=== PATIENT | female | born 1935 | race Caucasian/White ===

== ENCOUNTER 2018-05-09 04:33 | Emergency (ER) | payer MEDICARE, OTHER ==
[~2018-05-09] VITALS: Ht 172.7 cm; Wt 104.3 kg
[~2018-05-09 04:33] MED LIST: ACET325T9 PO; ACID1TAB13 PO; ASPI-630 PO; AZTR1VIA IJ; BISACODYL PR; CALC-74 PO; CHOL10002 PO; CYAN250T PO; DOCU100C28 PO; DULO60CA6 PO; FENT1PAT21 TP; FENT1PAT91 TD; HYDR28CR TP; LEVO50TA5 PO; LOPE2CAP PO; MAGN400O7 PO; MAGN400T3 PO; MERO1PIG IV; METO-239 PO; MULT-223 PO; MUPI22OI2 TP; NYST15PO9 TP; ONDA4TAB11 PO; OXYC10TA45 PO; POLY2500 MC; PRAV20TA2 PO; UBID100C PO; WARF-31 PO; Warfarin Sodium MC
--- NOTE | 2018-05-09 05:18 | PHYS DOC ---
Past History Past Medical History: A-Fib, Anemia, Anxiety, Arthritis, CAD, CHF, Constipation , COPD, CVA, Depression, GERD, High Cholesterol, Hypertension, Hypothyroid, Schizophrenia, Sinusitis, UTI, Other Past Surgical History: Appendectomy, Cholecystectomy, Hysterectomy, Other Smoking: Non-smoker Alcohol Use: None Drug Use: None Adult General Chief Complaint Chief Complaint: BRADYCARDIA HPI HPI 83-year-old female presents via EMS from a care facility for bradycardia and that her oxygen saturation saturations were in the 70s. When EMS arrived, they did not find either of these to be the case. On arrival to the ED, the patient had O2 sat of 95 with heart rate in the 70s. When asked patient if she has any complaints she tells me that she has had intermittent headache that she believes is due to her ears. She states she is getting eardrops for cerumen buildup. She states that she has a chronic Smith catheter and has difficulty with bowel movements. She is on a liquid stool softener. She denies chest pain or shortness of breath. She has had some intermittent abdominal pain lately, but states that she does not eye pain at this time. She has not had a fever or chills. Review of Systems Review of Systems Constitutional: Denies fever or chills [] Eyes: Denies change in visual acuity, redness, or eye pain [] HENT: Denies nasal congestion or sore throat [] Respiratory: Denies cough or shortness of breath [] Cardiovascular: No additional information not addressed in HPI [] GI: Denies abdominal pain, nausea, vomiting, bloody stools or diarrhea [] : Denies dysuria or hematuria [] Musculoskeletal: Denies back pain or joint pain [] Integument: Denies rash or skin lesions [] Neurologic: Denies headache, focal weakness or sensory changes [] Endocrine: Denies polyuria or polydipsia [] All other systems were reviewed and found to be within normal limits, except as documented in this note. Allergies Allergies Allergies Coded Allergies Type Severity Reaction Last Updated Verified Cephalexin Monohydrate Allergy Intermediate 12/18/15 Yes Iodinated Contrast Media - IV Dye Allergy Intermediate 12/18/15 Yes Penicillins Allergy Intermediate 12/18/15 Yes Sulfonylureas Allergy Intermediate 12/18/15 Yes amoxicillin Allergy Intermediate 12/29/14 Yes bacitracin zinc Allergy Intermediate 12/18/15 Yes ciprofloxacin HCl Allergy Intermediate 12/18/15 Yes colistimethate sodium Allergy Intermediate 12/18/15 Yes dexamethasone Allergy Intermediate 12/18/15 Yes doxycycline Allergy Intermediate 12/18/15 Yes gramicidin D Allergy Intermediate 12/18/15 Yes iodine Allergy Intermediate 12/18/15 Yes morphine Allergy Intermediate 12/18/15 Yes moxifloxacin HCl Allergy Intermediate 12/18/15 Yes neomycin sulfate Allergy Intermediate 12/18/15 Yes polymyxin B sulfate Allergy Intermediate 12/18/15 Yes pramoxine HCl Allergy Intermediate 12/18/15 Yes silver sulfadiazine Allergy Intermediate 12/18/15 Yes sulfamethoxazole Allergy Intermediate 12/29/14 Yes trimethoprim Allergy Intermediate 12/29/14 Yes vancomycin Allergy Intermediate 12/18/15 Yes Physical Exam Physical Exam Constitutional: Well developed, well nourished, no acute distress, non-toxic appearance. [] HENT: Normocephalic, atraumatic, bilateral external ears normal, oropharynx moist, no oral exudates, nose normal. Bilateral tympanic membranes obscured by cerumen.[] Eyes: PERRLA, EOMI, conjunctiva normal, no discharge. [] Neck: Normal range of motion, no tenderness, supple, no stridor. [] Cardiovascular:Heart rate regular rhythm, no murmur [] Lungs & Thorax: Bilateral breath sounds decreased but clear to auscultation [] Abdomen: Bowel sounds normal, soft, no tenderness, no masses, no pulsatile masses. [] Skin: Warm, dry, no erythema, no rash. [] Back: No tenderness, no CVA tenderness. [] Extremities: No tenderness, no cyanosis, no clubbing, ROM intact, no edema. [] Neurologic: Alert and oriented X 3, normal motor function, normal sensory function, no focal deficits noted. [] Psychologic: Affect normal, judgement normal, mood normal. [] Current Patient Data Vital Signs Vital Signs Date Time Temp Pulse Resp B/P (MAP) Pulse Ox O2 Delivery O2 Flow Rate FiO2 05/09/18 04:47 98.2 71 14 96 Room Air EKG EKG Sinus rhythm, rate 72, left axis deviation, no ST elevations or depressions[] Radiology/Procedures Radiology/Procedures [] Impressions: Chest AP portable at 0431: Reason for examination: Bradycardia. Comparison is made to previous study dated 03/10/2016. The heart size is normal. Mediastinum is unremarkable considering patient rotation. Lung graves show no acute congestion, infiltrates or pleural effusions. No acute bony abnormalities are evident. There does appear to be a thoracic scoliosis. IMPRESSION: No acute cardiopulmonary disease. Electronically signed by: Shayla Hopper MD (05/09/2018 5:15 AM) [facility] DICTATED AND SIGNED BY: SHAYLA HOPPER MD DATE: 05/09/18 0513 CC: NATASHA OTERO DO; DARCIE TUCKER MD Course & Med Decision Making Course & Med Decision Making Pertinent Labs and Imaging studies reviewed. (See chart for details) The patient's EKG is unremarkable. Her heart rate has been in the 70s and emergency room. Her oxygen saturation has been in the 90s on room air. The patient seems very alert and aware. She is able to answer all my questions. She is able to give a detailed history and history of recent events at her nursing facility. Her chest x-ray is unremarkable. I'm signing out the patient to Dr. Frank at 0610 as labs are pending. She will determine the patient's final disposition. [] Dragon Disclaimer Dragon Disclaimer This electronic medical record was generated, in whole or in part, using a voice recognition dictation system. Departure Departure: Referrals: DARCIE TUCKER MD (PCP) NATASHA OTERO DO May 09, 2018 05:18
[2018-05-09] MEDS ORDERED: IV NORMAL SALINE 1,000ML 1,000 ML IV ONE (05:30)
--- NOTE | 2018-05-09 06:08 | EKG ---
[address] [address] Test Date: 2018-05-09 Test Time: 05:48:34 Pat Name: VINAY MARRERO Department: Room: Gender: F Financial Planning Consultant: : 1935 Requested By: NATASHA OTERO Order Number: [id number] Reading MD: Antonio Montenegro MD Measurements Intervals [place] Rate: 72 P: 31 MN: 136 QRS: -23 QRSD: 92 T: 19 QT: 406 QTc: 446 Interpretive Statements SINUS RHYTHM Electronically Signed On 05-12-2018 12:09:03 CDT by Antonio Montenegro MD
[2018-05-09 06:13] VITALS: BP 99/60
[2018-05-09 06:25] LABS: BASO # 0.1 x10^3/uL (0.0-0.2); BASO % 1 % (0-3); EOS # 0.2 x10^3/uL (0.0-0.7); EOS % 1 % (0-3); HEMOGLOBIN 11.9 g/dL (12.0-15.5); LYMPH # 1.6 x10^3/uL (1.0-4.8); LYMPH % 12 % (24-48); MEAN CORPUSCULAR HEMOGLOBIN 29 pg (25-35); MEAN CORPUSCULAR HGB CONC 33 g/dL (31-37); MEAN CORPUSCULAR VOLUME 87 fL (79-100); MONO # 0.8 x10^3/uL (0.0-1.1); MONO % 6 % (0-9); NEUT # 10.7 x10^3uL (1.8-7.7); NEUT % 80 % (31-73); PLATELET COUNT 206 x10^3/uL (140-400); RED BLOOD COUNT 4.15 x10^6/uL (3.50-5.40); RED CELL DISTRIBUTION WIDTH 13.9 % (11.5-14.5); WHITE BLOOD COUNT 13.3 x10^3/uL (4.0-11.0)
[2018-05-09 06:36] LABS: ALBUMIN 3.1 g/dL (3.4-5.0); CALCIUM 8.7 mg/dL (8.5-10.1); CREATININE 0.9 mg/dL (0.6-1.0); GFR 60.1; POTASSIUM 4.5 mmol/L (3.5-5.1); TOTAL BILIRUBIN 0.3 mg/dL (0.2-1.0); TOTAL PROTEIN 6.3 g/dL (6.4-8.2)
[2018-05-09 08:09] LABS: BACTERIA,URINE MANY /HPF (0-FEW); BILIRUBIN,URINE NEG (NEG); CLARITY,URINE CLOUDY; COLOR,URINE YELLOW; GLUCOSE,URINE NEG (NEG); NITRITE,URINE NEG (NEG); RBC,URINE 20-40 /HPF (0-2); SQUAMOUS EPITHELIAL CELL,UR OCC /LPF; UROBILINOGEN,URINE 1 mg/dL (0.2 mg/dL)
[2018-05-09 08:10] LABS: AMORPHOUS SEDIMENT,UR PRESENT /HPF
== END 2018-05-09 07:45 | disposition home or self-care (01) ==
LOC: ER 04:33
DX: R00.1 Bradycardia, unspecified (principal); R51 Headache; I48.91 Unspecified atrial fibrillation; F41.9 Anxiety disorder, unspecified; M19.90 Unspecified osteoarthritis, unspecified site; I25.10 Atherosclerotic heart disease of native coronary artery without angina pectoris; I11.0 Hypertensive heart disease with heart failure; I50.9 Heart failure, unspecified; J44.9 Chronic obstructive pulmonary disease, unspecified; F32.9 Major depressive disorder, single episode, unspecified; E78.00 Pure hypercholesterolemia, unspecified; E03.9 Hypothyroidism, unspecified; F20.9 Schizophrenia, unspecified; Z86.73 Personal history of transient ischemic attack (TIA), and cerebral infarction without residual deficits; Z87.440 Personal history of urinary (tract) infections; Z88.1 Allergy status to other antibiotic agents; Z91.041 Radiographic dye allergy status; Z88.0 Allergy status to penicillin; Z88.2 Allergy status to sulfonamides; Z88.8 Allergy status to other drugs, medicaments and biological substances; Z88.5 Allergy status to narcotic agent
CPT/HCPCS: 36415; 71045; 80053; 81001; 84484; 85025; 87086; 87186; 93005; 99285-25; J7030

== ENCOUNTER 2018-08-17 17:11 | Inpatient (IN) | payer MEDICARE, OTHER ==
[~2018-08-17] VITALS: Ht 172.7 cm; Wt 104.5 kg
[~2018-08-17 17:11] MED LIST changes: -OXYC10TA45 PO; +OXYC10TA46 PO
[2018-08-17] MEDS ORDERED: ACETAMINOPHEN 325 MG TABLET PO ONE (17:30)
--- NOTE | 2018-08-17 17:49 | PHYS DOC ---
Past History Past Medical History: A-Fib, Anemia, Anxiety, Arthritis, CAD, CHF, Constipation , COPD, CVA, Depression, GERD, High Cholesterol, Hypertension, Hypothyroid, Schizophrenia, Sinusitis, UTI, Other Past Surgical History: Appendectomy, Cholecystectomy, Hysterectomy, Other Smoking: Non-smoker Alcohol Use: None Drug Use: None Adult General Chief Complaint Chief Complaint: WEAKNESS/GENERALIZED HPI HPI 83-year-old female presents from senior living via EMS for fever of 102. The patient has not been feeling well generally for a couple of days. She does not give any particular details of what that means. She only answers questions with yes and no. She denies any pain. She is unsure if she has had increased urinary frequency. She denies vomiting or diarrhea. She was not reported to have any medication for her fever prior to arrival. Review of Systems Review of Systems Constitutional: Fever and chills[] Eyes: Denies change in visual acuity, redness, or eye pain [] HENT: Denies nasal congestion or sore throat [] Respiratory: Denies cough or shortness of breath [] Cardiovascular: No additional information not addressed in HPI [] GI: Denies abdominal pain, nausea, vomiting, bloody stools or diarrhea [] : Denies dysuria or hematuria [] Musculoskeletal: Denies back pain or joint pain [] Integument: Denies rash or skin lesions [] Neurologic: Denies headache, focal weakness or sensory changes [] Endocrine: Denies polyuria or polydipsia [] All other systems were reviewed and found to be within normal limits, except as documented in this note. Current Medications Current Medications Current Medications Medications (Trade) Dose Ordered Sig/Romaine Start Time Stop Time Status Last Admin Dose Admin Acetaminophen (Tylenol) 1,000 mg 1X ONCE 08/17/18 17:30 08/17/18 17:31 DC Allergies Allergies Allergies Coded Allergies Type Severity Reaction Last Updated Verified Cephalexin Monohydrate Allergy Intermediate 12/18/15 Yes Iodinated Contrast Media - IV Dye Allergy Intermediate 12/18/15 Yes Penicillins Allergy Intermediate 12/18/15 Yes Sulfonylureas Allergy Intermediate 12/18/15 Yes amoxicillin Allergy Intermediate 12/29/14 Yes bacitracin zinc Allergy Intermediate 12/18/15 Yes ciprofloxacin HCl Allergy Intermediate 12/18/15 Yes colistimethate sodium Allergy Intermediate 12/18/15 Yes dexamethasone Allergy Intermediate 12/18/15 Yes doxycycline Allergy Intermediate 12/18/15 Yes gramicidin D Allergy Intermediate 12/18/15 Yes iodine Allergy Intermediate 12/18/15 Yes morphine Allergy Intermediate 12/18/15 Yes moxifloxacin HCl Allergy Intermediate 12/18/15 Yes neomycin sulfate Allergy Intermediate 12/18/15 Yes polymyxin B sulfate Allergy Intermediate 12/18/15 Yes pramoxine HCl Allergy Intermediate 12/18/15 Yes silver sulfadiazine Allergy Intermediate 12/18/15 Yes sulfamethoxazole Allergy Intermediate 12/29/14 Yes trimethoprim Allergy Intermediate 12/29/14 Yes vancomycin Allergy Intermediate 12/18/15 Yes Physical Exam Physical Exam Constitutional: Well developed, well nourished, shivering, non-toxic appearance. [] HENT: Normocephalic, atraumatic, bilateral external ears normal, oropharynx moist, no oral exudates, nose normal. [] Eyes: PERRLA, EOMI, conjunctiva normal, no discharge. [] Neck: Normal range of motion, no tenderness, supple, no stridor. [] Cardiovascular:Heart rate regular rhythm, no murmur [] Lungs & Thorax: Bilateral breath sounds clear to auscultation [] Abdomen: Bowel sounds normal, soft, no tenderness, no masses, no pulsatile masses. [] Skin: Warm, dry, no erythema, no rash. [] Back: No tenderness, no CVA tenderness. [] Extremities: No tenderness, no cyanosis, no clubbing, ROM intact, no edema. [] Neurologic: Alert and oriented, normal motor function, normal sensory function, no focal deficits noted. [] Psychologic: Affect normal, mood normal. [] Current Patient Data Vital Signs Vital Signs Date Time Temp Pulse Resp B/P (MAP) Pulse Ox O2 Delivery O2 Flow Rate FiO2 08/17/18 17:19 102.5 96 18 95 Room Air Lab Results Laboratory Tests Test 08/17/18 17:35 08/17/18 17:53 08/17/18 18:00 Urine Collection Type Unknown Urine Color Yellow Urine Clarity Cloudy Urine pH >8.5 Urine Specific [place] 1.015 Urine Protein Trace Urine Glucose (UA) Neg mg/dL Urine Ketones (Stick) Neg mg/dL Urine Blood Small Urine Nitrite Pos Urine Bilirubin Neg Urine Urobilinogen Dipstick 0.2 mg/dL Urine Leukocyte Esterase Mod Urine RBC 1-2 /HPF Urine WBC 1-4 /HPF Urine Squamous Epithelial Cells Occ /LPF Urine Amorphous Sediment Present /HPF Urine Bacteria Many /HPF Sodium Level 139 mmol/L Potassium Level 4.8 mmol/L Chloride Level 101 mmol/L Carbon Dioxide Level 30 mmol/L Anion Gap 8 Blood Urea Nitrogen 22 mg/dL Creatinine 0.7 mg/dL Estimated GFR (Cockcroft-Gault) 80.3 BUN/Creatinine Ratio 31 Glucose Level 122 mg/dL Lactic Acid Level 1.5 mmol/L Calcium Level 8.9 mg/dL Total Bilirubin 0.4 mg/dL Aspartate Amino Transf (AST/SGOT) 24 U/L Alanine Aminotransferase (ALT/SGPT) 19 U/L Alkaline Phosphatase 141 U/L Total Protein 7.5 g/dL Albumin 3.6 g/dL Albumin/Globulin Ratio 0.9 White Blood Count 18.0 x10^3/uL Red Blood Count 4.65 x10^6/uL Hemoglobin 13.1 g/dL Hematocrit 40.4 % Mean Corpuscular Volume 87 fL Mean Corpuscular Hemoglobin 28 pg Mean Corpuscular Hemoglobin Concent 32 g/dL Red Cell Distribution Width 14.1 % Platelet Count 190 x10^3/uL Neutrophils (%) (Auto) 88 % Lymphocytes (%) (Auto) 6 % Monocytes (%) (Auto) 4 % Eosinophils (%) (Auto) 1 % Basophils (%) (Auto) 1 % Neutrophils # (Auto) 15.9 x10^3uL Lymphocytes # (Auto) 1.1 x10^3/uL Monocytes # (Auto) 0.7 x10^3/uL Eosinophils # (Auto) 0.2 x10^3/uL Basophils # (Auto) 0.1 x10^3/uL Platelet Estimate Pending Current Medications Medications (Trade) Dose Ordered Sig/Romaine Route PRN Reason Start Time Stop Time Status Last Admin Dose Admin Acetaminophen (Tylenol) 1,000 mg 1X ONCE PO 08/17/18 17:30 08/17/18 17:31 DC 08/17/18 18:20 Meropenem 1 gm/ Sodium Chloride 100 ml @ 200 mls/hr Q8HRS IV 08/17/18 22:00 UNV EKG EKG Sinus rhythm, rate 99, left axis, nose elevations or depressions.[] Radiology/Procedures Radiology/Procedures One view AP chest x-ray interpreted by me: No infiltrate, no effusion, normal cardiac silhouette[] Course & Med Decision Making Course & Med Decision Making Pertinent Labs and Imaging studies reviewed. (See chart for details) The patient was given 1 g of Tylenol and a liter of normal saline on arrival. Labs, urinalysis, chest x-ray are pending. The patient has a normal blood pressure, tachycardia 104, respirations of 18. She does not currently meet sepsis criteria. I am signing out the patient to Dr. Carey at 183. He will determine final disposition. Addendum by Dr. Allen Carey at 191: I took over care of patient from Dr. Otero at 183. I received results of urinalysis which was positive for nitrites. Chest x-ray shows no obvious evidence of infiltrate. Source of infection appears to be urinary tract. Patient started on meropenem for treatment. I spoke with Dr. Tucker who will accept care of patient in hospital.[] Dragon Disclaimer Dragon Disclaimer This electronic medical record was generated, in whole or in part, using a voice recognition dictation system. Departure Departure: Impression: Primary Impression: UTI (urinary tract infection) Additional Impression: Sepsis Disposition: ADMITTED INPATIENT Condition: GUARDED Referrals: DARCIE TUCKER MD (PCP) Problem Qualifiers Primary Impression: UTI (urinary tract infection) Urinary tract infection type: site unspecified Hematuria presence: without hematuria Qualified Codes: N39.0 - Urinary tract infection, site not specified Additional Impression: Sepsis Sepsis type: sepsis due to unspecified organism Qualified Codes: A41.9 - Sepsis, unspecified organism NATASHA OTERO DO Aug 17, 2018 17:49 ALLEN CAREY MD Aug 17, 2018 19:24
[2018-08-17 18:25] LABS: BASO # 0.1 x10^3/uL (0.0-0.2); BASO % 1 % (0-3); EOS # 0.2 x10^3/uL (0.0-0.7); EOS % 1 % (0-3); HEMATOCRIT 40.4 % (36.0-47.0); HEMOGLOBIN 13.1 g/dL (12.0-15.5); LYMPH # 1.1 x10^3/uL (1.0-4.8); LYMPH % 6 % (24-48); MEAN CORPUSCULAR HEMOGLOBIN 28 pg (25-35); MEAN CORPUSCULAR HGB CONC 32 g/dL (31-37); MEAN CORPUSCULAR VOLUME 87 fL (79-100); MONO # 0.7 x10^3/uL (0.0-1.1); MONO % 4 % (0-9); NEUT # 15.9 x10^3uL (1.8-7.7); NEUT % 88 % (31-73); PLATELET COUNT 190 x10^3/uL (140-400); RED BLOOD COUNT 4.65 x10^6/uL (3.50-5.40); RED CELL DISTRIBUTION WIDTH 14.1 % (11.5-14.5)
[2018-08-17 18:43] LABS: ALBUMIN 3.6 g/dL (3.4-5.0); ALBUMIN/GLOBULIN RATIO 0.9 (1.0-1.7); CALCIUM 8.9 mg/dL (8.5-10.1); CREATININE 0.7 mg/dL (0.6-1.0); GFR 80.3; POTASSIUM 4.8 mmol/L (3.5-5.1); TOTAL BILIRUBIN 0.4 mg/dL (0.2-1.0); TOTAL PROTEIN 7.5 g/dL (6.4-8.2)
[2018-08-17 19:05] LABS: AMORPHOUS SEDIMENT,UR PRESENT /HPF; BACTERIA,URINE MANY /HPF (0-FEW); BILIRUBIN,URINE NEG (NEG); CLARITY,URINE CLOUDY; COLOR,URINE YELLOW; GLUCOSE,URINE NEG (NEG); NITRITE,URINE POS (NEG); SQUAMOUS EPITHELIAL CELL,UR OCC /LPF; UROBILINOGEN,URINE 0.2 mg/dL (0.2 mg/dL)
[2018-08-17] MEDS ORDERED: ACETAMINOPHEN 325 MG TABLET PO PRN (19:30)
[2018-08-17] MEDS ORDERED: ONDANSETRON PF 4 MG/2 ML VIAL. IV PRN (19:30)
--- NOTE | 2018-08-17 19:45 | RAD ---
PORTABLE CHEST 1V History: Fever. Pt unable to hold up head, sit upright unassisted or follow directions. Best image due to pt condition
. Comparison: May 09, 2018 Cardiomediastinal silhouette: Mildly enlarged, unchanged since prior. Lungs: Prominent interstitial markings, slightly greater than what was seen on prior. There is also more focal opacity in the right lung base and left lung base. Pleura: There may be a trace left effusion. Pneumothorax: None visualized Support Devices: None. Impression: Mild infiltrate in the right lung base and left lung base. Mild interstitial opacities could be fibrosis or mild edema or additional infiltrate. Electronically signed by: Pascual Villa MD (08/17/2018 7:40 PM) [facility]
[2018-08-17 19:50] VITALS: BP 191/91
[2018-08-17] MEDS: IV NORMAL SALINE 1,000ML 1,000 ML IV SCH (20:16)
[2018-08-17] MEDS: MEROPENEM 1 GM in IV NORMAL SALINE 100ML 100 ML IV SCH (20:20)
[2018-08-17 20:30] VITALS: BP 178/81
[2018-08-17] MEDS ORDERED: ACETAMINOPHEN 650 MG SUPP.RECT. PR PRN (20:45)
[2018-08-17 20:50] VITALS: BP 168/79
[2018-08-17 21:35] VITALS: BP 145/69
[2018-08-17] MEDS ORDERED: METO25TA4 PO (21:56)
[2018-08-17] MEDS ORDERED: LEVO75TA5 PO (21:56)
[2018-08-17] MEDS ORDERED: CRAN425C3 PO (21:56)
[2018-08-17] MEDS ORDERED: APIX5TAB3 PO (21:56)
[2018-08-17] MEDS ORDERED: BISA10SU2 RC (21:56)
[2018-08-17] MEDS ORDERED: SODI30SP NS (21:56)
[2018-08-17] MEDS ORDERED: ACET325T9 PO (21:56)
[2018-08-17] MEDS ORDERED: FAMO40TA4 PO (21:56)
[2018-08-17 22:35] VITALS: BP 135/64
[2018-08-17 23:09] LABS: % EOS 3 % (0-5); % LYMPHS 9 % (24-48); % MONOS 2 % (0-10); % SEGS 86 % (35-66); OVALOCYTES OCC; PLT ESTIMATE ADEQUATE (ADEQUATE)
[2018-08-17 23:30] VITALS: BP 123/60
[2018-08-18] VITALS (22 sets, daily range): BP systolic 86–138; BP diastolic 48–82
[2018-08-18] MEDS: IV NORMAL SALINE 1,000ML 1,000 ML IV SCH ×2 (01:23→17:08)
[2018-08-18] MEDS: MEROPENEM 1 GM in IV NORMAL SALINE 100ML 100 ML IV SCH ×3 (05:35→22:18)
[2018-08-18] MEDS ORDERED: MAGNESIUM HYDROXIDE 2,400 MG/30 ML ORAL.SUSP. PO PRN (08:30)
[2018-08-18] MEDS ORDERED: CALCIUM CARBONATE 500 MG TAB.CHEW PO PRN (08:30)
[2018-08-18] MEDS ORDERED: ACETAMINOPHEN 325 MG TABLET PO PRN (08:30)
[2018-08-18 08:39] LABS: ALBUMIN 2.5 g/dL (3.4-5.0); ALBUMIN/GLOBULIN RATIO 0.6 (1.0-1.7); CREATININE 0.9 mg/dL (0.6-1.0); GFR 60.1; POTASSIUM 4.7 mmol/L (3.5-5.1); TOTAL BILIRUBIN 0.5 mg/dL (0.2-1.0); TOTAL PROTEIN 6.6 g/dL (6.4-8.2)
[2018-08-18 08:44] LABS: BASO # 0.1 x10^3/uL (0.0-0.2); BASO % 0 % (0-3); EOS % 0 % (0-3); HEMATOCRIT 38.6 % (36.0-47.0); HEMOGLOBIN 12.3 g/dL (12.0-15.5); LYMPH # 1.6 x10^3/uL (1.0-4.8); LYMPH % 7 % (24-48); MEAN CORPUSCULAR HEMOGLOBIN 28 pg (25-35); MEAN CORPUSCULAR HGB CONC 32 g/dL (31-37); MEAN CORPUSCULAR VOLUME 87 fL (79-100); MONO # 0.8 x10^3/uL (0.0-1.1); MONO % 3 % (0-9); NEUT # 22.1 x10^3uL (1.8-7.7); NEUT % 90 % (31-73); PLATELET COUNT 152 x10^3/uL (140-400); RED BLOOD COUNT 4.43 x10^6/uL (3.50-5.40); RED CELL DISTRIBUTION WIDTH 14.1 % (11.5-14.5); WHITE BLOOD COUNT 24.6 x10^3/uL (4.0-11.0)
[2018-08-18] MEDS ORDERED: BISACODYL 10 MG SUPP.RECT PR PRN (08:45)
[2018-08-18] MEDS ORDERED: CRANBERRY EXTRACT PO SCH (09:00)
[2018-08-18] MEDS ORDERED: SODIUM CHLORIDE 0.65% NASAL SPRAY 45ML BOTTLE. NS PRN (09:00)
[2018-08-18] MEDS ORDERED: LOPERAMIDE 2 MG CAPSULE PO PRN (09:00)
[2018-08-18] MEDS ORDERED: HYDROCORTISONE 1% TOPICAL CREAM 30GM TUBE. TP PRN (09:00)
[2018-08-18] MEDS ORDERED: ONDANSETRON ODT 4 MG TAB.RAPDIS PO PRN (09:00)
[2018-08-18] MEDS: CHOLECALCIFEROL (VITAMIN D3) 1,000 UNIT TABLET PO SCH (10:29)
[2018-08-18] MEDS: LACTOBACILLUS RHAMNOSUS GG 1 CAPSULE. PO SCH ×2 (10:29→20:35)
[2018-08-18] MEDS: METOPROLOL TART IMMED RELEASE 25 MG TABLET PO SCH (10:30)
[2018-08-18] MEDS: MAGNESIUM OXIDE 400 MG TABLET PO SCH (10:30)
[2018-08-18] MEDS: APIXABAN 2.5 MG TABLET PO SCH ×2 (10:30→20:35)
[2018-08-18] MEDS: FAMOTIDINE 20 MG TABLET PO SCH (10:30)
[2018-08-18] MEDS: LEVOTHYROXINE 75 MCG TABLET PO SCH (10:30)
[2018-08-18] MEDS: ACETAMINOPHEN 325 MG TABLET PO SCH ×2 (10:30→20:35)
[2018-08-18] MEDS: MULTIVITAMIN with MINERAL TABLET. PO SCH (10:30)
[2018-08-18] MEDS: NYSTATIN TOPICAL POWDER 15GM BOTTLE. TP SCH ×2 (10:31→20:41)
[2018-08-18] MEDS: DOCUSATE SODIUM 100 MG CAPSULE PO SCH (10:31)
[2018-08-18] MEDS: UBIDECARENONE 50 MG CAPSULE. PO SCH (10:32)
[2018-08-18] MEDS: CYANOCOBALAMIN (VITAMIN B-12) 250 MCG TABLET PO SCH (10:32)
[2018-08-18] MEDS: fentaNYL 100MCG/HR 1 PATCH PATCH TD SCH (10:33)
[2018-08-18] MEDS: POLYETHYLENE GLYCOL 3350 17 GM PACKET. PO SCH (10:34)
--- NOTE | 2018-08-18 14:08 | HP ---
ADMIT DATE: 08/17/2018 HISTORY OF PRESENT ILLNESS: An 83-year-old female in from the alf at [place] had a temperature of 102 degrees and the patient has not been feeling well for the last several days. The patient had a long history of multiple urinary tract infections. She is seen initially in the Emergency Room and admitted to the hospital with urosepsis. Her white count was as high as 24,000 and met criteria for sepsis. She was placed in the ICU for continued IV antibiotic therapy and close monitoring of her sepsis, urosepsis. PAST MEDICAL HISTORY: Extensive for multiple urinary tract infections, CVA, history of chronic atrial fibrillation, heart attack, angina, CHF, hypercholesterolemia, chronic Eliquis therapy, hypertension, COPD, pneumonia, hysterectomy, obesity, GERD, suprapubic catheter, urinary tract infection, urinary retention, arthritis, hypothyroidism, schizophrenia, depression, anxiety, anemia, clotting problems, on Eliquis. Influenza vaccination and pneumococcal, all up-to-date. She has had wounds and need to be seen by wound care. Progressive weakness. ALLERGIES: Adverse reaction to KEFLEX, IODINE, PENICILLIN, SULFONYLUREA, AMOXICILLIN, BACITRACIN, ZINC, CIPROFLOXACIN, COLISTIMETHATE, DEXAMETHASONE, DOXYCYCLINE, GRAMICIDIN, MORPHINE, MOXIFLOXACIN, NEOMYCIN, POLYMYXIN, PRAMOXINE, TRIMETHOPRIM SULFA, and VANCOMYCIN. FAMILY HISTORY: Unremarkable. SOCIAL HISTORY: Lives at [facility]. Denies smoking, alcohol, or drug use. REVIEW OF SYSTEMS: The patient basically right now just feels generalized weakness and frailness. Denies chest pain, shortness of breath, or abdominal pain. Denies any melena, hematochezia, or hematemesis, baseline. PHYSICAL EXAMINATION: VITAL SIGNS: Blood pressure initially was 190/80, pulse 100, temperature 102.5. HEENT: The patient's head otherwise atraumatic, normocephalic. Mouth and throat: Poor dentition. NECK: Supple. LUNGS: Diminished, but clear. CARDIOVASCULAR: Regular sinus rhythm, tachycardic. ABDOMEN: Soft, protuberant. Wound care noted. Suprapubic catheter noted. No hepatosplenomegaly. Positive bowel sounds. EXTREMITIES: No clubbing, cyanosis, or edema. NEUROLOGIC: Intact. Baseline for her. LABORATORY DATA: White count 24,000, hemoglobin 12. Electrolytes basically stable as was her kidney function. Her albumin has come down to 2.5. Lactic acid was stable at 1.5. At any case, the patient otherwise will be admitted for further evaluation. IMPRESSION: Sepsis, urosepsis, organism unspecified as yet, positive nitrites. Chest x-ray shows the possibility of an infiltrative process, possible pneumonia, general failure to thrive, multiple urinary tract infections, generalized weakness, hypertensive urgency, morbid obesity. PLAN: As above. Continue to monitor the patient according in the ICU. Meropenem given, some antibiotics given as well and continue to monitor her accordingly. DARCIE TUCKER MD DR: ZANE/nts JOB#: [id number] / [id number]
[2018-08-18] MEDS: PRAVASTATIN 20 MG TABLET. PO SCH (20:35)
[2018-08-19] VITALS (16 sets, daily range): BP systolic 90–147; BP diastolic 45–68
[2018-08-19] MEDS: IV NORMAL SALINE 1,000ML 1,000 ML IV SCH ×2 (04:32→15:16)
[2018-08-19] MEDS: MEROPENEM 1 GM in IV NORMAL SALINE 100ML 100 ML IV SCH ×3 (06:11→22:39)
[2018-08-19] MEDS: LEVOTHYROXINE 75 MCG TABLET PO SCH (06:14)
[2018-08-19 06:26] LABS: BASO % 0 % (0-3); EOS # 0.2 x10^3/uL (0.0-0.7); EOS % 2 % (0-3); HEMATOCRIT 33.3 % (36.0-47.0); HEMOGLOBIN 10.9 g/dL (12.0-15.5); LYMPH # 1.2 x10^3/uL (1.0-4.8); LYMPH % 11 % (24-48); MEAN CORPUSCULAR HEMOGLOBIN 29 pg (25-35); MEAN CORPUSCULAR HGB CONC 33 g/dL (31-37); MEAN CORPUSCULAR VOLUME 87 fL (79-100); MONO # 0.4 x10^3/uL (0.0-1.1); MONO % 4 % (0-9); NEUT # 8.7 x10^3uL (1.8-7.7); NEUT % 83 % (31-73); PLATELET COUNT 123 x10^3/uL (140-400); RED BLOOD COUNT 3.83 x10^6/uL (3.50-5.40); RED CELL DISTRIBUTION WIDTH 14.8 % (11.5-14.5); WHITE BLOOD COUNT 10.5 x10^3/uL (4.0-11.0)
[2018-08-19 06:41] LABS: ALBUMIN 2.3 g/dL (3.4-5.0); ALBUMIN/GLOBULIN RATIO 0.6 (1.0-1.7); CREATININE 0.8 mg/dL (0.6-1.0); GFR 68.8; POTASSIUM 3.9 mmol/L (3.5-5.1); TOTAL BILIRUBIN 0.3 mg/dL (0.2-1.0)
[2018-08-19] MEDS: NYSTATIN TOPICAL POWDER 15GM BOTTLE. TP SCH ×2 (09:00→22:39)
[2018-08-19] MEDS: FAMOTIDINE 20 MG TABLET PO SCH (09:10)
[2018-08-19] MEDS: CHOLECALCIFEROL (VITAMIN D3) 1,000 UNIT TABLET PO SCH (09:10)
[2018-08-19] MEDS: LACTOBACILLUS RHAMNOSUS GG 1 CAPSULE. PO SCH ×2 (09:10→22:39)
[2018-08-19] MEDS: MULTIVITAMIN with MINERAL TABLET. PO SCH (09:10)
[2018-08-19] MEDS: MAGNESIUM OXIDE 400 MG TABLET PO SCH (09:10)
[2018-08-19] MEDS: DOCUSATE SODIUM 100 MG CAPSULE PO SCH (09:11)
[2018-08-19] MEDS: ACETAMINOPHEN 325 MG TABLET PO SCH ×2 (09:11→22:39)
[2018-08-19] MEDS: POLYETHYLENE GLYCOL 3350 17 GM PACKET. PO SCH (09:12)
[2018-08-19] MEDS: METOPROLOL TART IMMED RELEASE 25 MG TABLET PO SCH (09:12)
[2018-08-19] MEDS: CYANOCOBALAMIN (VITAMIN B-12) 250 MCG TABLET PO SCH (09:12)
[2018-08-19] MEDS: UBIDECARENONE 50 MG CAPSULE. PO SCH (09:12)
[2018-08-19] MEDS: APIXABAN 2.5 MG TABLET PO SCH ×2 (09:12→22:39)
[2018-08-19] MEDS ORDERED: MULTIVITAMIN with MINERAL TABLET. PO SCH (10:00)
[2018-08-19] MEDS: PRAVASTATIN 20 MG TABLET. PO SCH (22:39)
--- NOTE | 2018-08-19 23:20 | PN ---
DATE: SUBJECTIVE: The patient continued to receive IV antibiotic therapy for sepsis, urosepsis. White count has come down to 24,000, down to 10, continues to make good progress overall. The patient otherwise will advance her diet. OBJECTIVE: VITAL SIGNS: Blood pressure 140/60, respiratory rate 18, pulse 67, afebrile. GENERAL: The patient is alert and oriented. LUNGS: Diminished, but clear than they have been. CARDIOVASCULAR: Regular sinus rhythm. ABDOMEN: Soft, nontender. EXTREMITIES: No clubbing, cyanosis, or edema. NEUROLOGIC: Intact. IMPRESSION: Urosepsis, organism unspecified. Chest x-ray with possible pneumonia, general failure to thrive, generalized weakness, hypertension, morbid obesity. DARCIE TUCKER MD DR: ZANE/nts JOB#: [id number] / [id number]
[2018-08-20] VITALS (7 sets, daily range): BP systolic 99–195; BP diastolic 52–83
[2018-08-20] MEDS: MEROPENEM 1 GM in IV NORMAL SALINE 100ML 100 ML IV SCH ×3 (06:11→21:43)
[2018-08-20] MEDS: LEVOTHYROXINE 75 MCG TABLET PO SCH (06:11)
[2018-08-20 06:25] LABS: BASO % 0 % (0-3); EOS # 0.3 x10^3/uL (0.0-0.7); EOS % 5 % (0-3); HEMOGLOBIN 10.1 g/dL (12.0-15.5); LYMPH # 1.3 x10^3/uL (1.0-4.8); LYMPH % 22 % (24-48); MEAN CORPUSCULAR HEMOGLOBIN 29 pg (25-35); MEAN CORPUSCULAR HGB CONC 34 g/dL (31-37); MEAN CORPUSCULAR VOLUME 85 fL (79-100); MONO # 0.4 x10^3/uL (0.0-1.1); MONO % 6 % (0-9); NEUT # 4.1 x10^3uL (1.8-7.7); NEUT % 67 % (31-73); PLATELET COUNT 136 x10^3/uL (140-400); RED BLOOD COUNT 3.52 x10^6/uL (3.50-5.40); RED CELL DISTRIBUTION WIDTH 14.3 % (11.5-14.5); WHITE BLOOD COUNT 6.2 x10^3/uL (4.0-11.0)
[2018-08-20 06:37] LABS: ALBUMIN 2.1 g/dL (3.4-5.0); ALBUMIN/GLOBULIN RATIO 0.6 (1.0-1.7); CALCIUM 8.1 mg/dL (8.5-10.1); CREATININE 0.7 mg/dL (0.6-1.0); GFR 80.3; POTASSIUM 3.9 mmol/L (3.5-5.1); TOTAL BILIRUBIN 0.2 mg/dL (0.2-1.0); TOTAL PROTEIN 5.5 g/dL (6.4-8.2)
--- NOTE | 2018-08-20 06:56 | EKG ---
[address] [address] Test Date: 2018-08-17 Test Time: 17:21:40 Pat Name: VINAY MARRERO Department: Room: ICU03 1 Gender: F Electric Fork Operator: SAMUEL : 1935 Requested By: NATASHA OTERO Order Number: [id number] Reading MD: Antonio Montenegro MD Measurements Intervals [place] Rate: 99 P: -44 DC: 120 QRS: -29 QRSD: 88 T: 40 QT: 340 QTc: 442 Interpretive Statements SINUS RHYTHM CONSIDER PRIOR INFERIOR INFARCT Electronically Signed On 08-25-2018 10:20:18 LAST MODEL DEPARTMENT SUPERVISOR by Antonio Montenegro MD
[2018-08-20] MEDS: CHOLECALCIFEROL (VITAMIN D3) 1,000 UNIT TABLET PO SCH (08:17)
[2018-08-20] MEDS: FAMOTIDINE 20 MG TABLET PO SCH (08:17)
[2018-08-20] MEDS: MULTIVITAMIN with MINERAL TABLET. PO SCH (08:17)
[2018-08-20] MEDS: METOPROLOL TART IMMED RELEASE 25 MG TABLET PO SCH (08:18)
[2018-08-20] MEDS: CYANOCOBALAMIN (VITAMIN B-12) 250 MCG TABLET PO SCH (08:18)
[2018-08-20] MEDS: DOCUSATE SODIUM 100 MG CAPSULE PO SCH (08:18)
[2018-08-20] MEDS: APIXABAN 2.5 MG TABLET PO SCH ×2 (08:18→21:41)
[2018-08-20] MEDS: LACTOBACILLUS RHAMNOSUS GG 1 CAPSULE. PO SCH ×2 (08:18→21:40)
[2018-08-20] MEDS: UBIDECARENONE 50 MG CAPSULE. PO SCH (08:19)
[2018-08-20] MEDS: POLYETHYLENE GLYCOL 3350 17 GM PACKET. PO SCH (08:19)
[2018-08-20] MEDS: NYSTATIN TOPICAL POWDER 15GM BOTTLE. TP SCH ×2 (08:21→21:41)
[2018-08-20] MEDS: MAGNESIUM OXIDE 400 MG TABLET PO SCH (08:21)
[2018-08-20] MEDS: ACETAMINOPHEN 325 MG TABLET PO SCH ×2 (08:22→21:40)
[2018-08-20] MEDS: IV NORMAL SALINE 1,000ML 1,000 ML IV SCH ×3 (08:25→20:00)
--- NOTE | 2018-08-20 12:32 | PN ---
DATE: 08/20/2018 SUBJECTIVE: An 83-year-old female in with sepsis. The patient is resting fairly comfortably. She says she is feeling a little bit better. Awaiting final culture and sensitivity reports to be able to put her on oral antibiotic. The patient's white count has come down from 24,000 down to 6. Chemistries look basically stable. It shows some moderate protein malnutrition. The patient's UA here was unremarkable, but she did grow out preliminary of Proteus. SUBJECTIVE: VITAL SIGNS: The patient's blood is pressure 135/72, respiratory rate 16, pulse 71, afebrile. GENERAL: The patient is alert and oriented. LUNGS: Diminished throughout, but clear. CARDIOVASCULAR: Regular sinus rhythm. ABDOMEN: Soft, nontender. Suprapubic catheter in place. IMPRESSION: Sepsis, urosepsis, Proteus mirabilis, possible pneumonia, general failure to thrive, generalized weakness, hypertension, morbid obesity. PLAN: Continue with present IV antibiotic therapy until final culture reports are returned. DARCIE TUCKER MD DR: ZANE/jody JOB#: [id number] / [id number]
[2018-08-20] MEDS: PRAVASTATIN 20 MG TABLET. PO SCH (21:40)
[2018-08-21 00:27] VITALS: BP 147/82
[2018-08-21] MEDS: LEVOTHYROXINE 75 MCG TABLET PO SCH (06:01)
[2018-08-21] MEDS: MEROPENEM 1 GM in IV NORMAL SALINE 100ML 100 ML IV SCH ×2 (06:02→14:36)
[2018-08-21 07:50] VITALS: BP 181/77
[2018-08-21] MEDS: IV NORMAL SALINE 1,000ML 1,000 ML IV SCH (08:57)
[2018-08-21] MEDS: MAGNESIUM OXIDE 400 MG TABLET PO SCH (08:58)
[2018-08-21] MEDS: POLYETHYLENE GLYCOL 3350 17 GM PACKET. PO SCH (08:58)
[2018-08-21] MEDS: ACETAMINOPHEN 325 MG TABLET PO SCH (08:58)
[2018-08-21] MEDS: DOCUSATE SODIUM 100 MG CAPSULE PO SCH (08:58)
[2018-08-21] MEDS: LACTOBACILLUS RHAMNOSUS GG 1 CAPSULE. PO SCH (08:58)
[2018-08-21] MEDS: MULTIVITAMIN with MINERAL TABLET. PO SCH (08:58)
[2018-08-21] MEDS: CHOLECALCIFEROL (VITAMIN D3) 1,000 UNIT TABLET PO SCH (08:58)
[2018-08-21] MEDS: APIXABAN 2.5 MG TABLET PO SCH (08:58)
[2018-08-21] MEDS: FAMOTIDINE 20 MG TABLET PO SCH (08:59)
[2018-08-21] MEDS: NYSTATIN TOPICAL POWDER 15GM BOTTLE. TP SCH (08:59)
[2018-08-21] MEDS: CYANOCOBALAMIN (VITAMIN B-12) 250 MCG TABLET PO SCH (08:59)
[2018-08-21] MEDS: UBIDECARENONE 50 MG CAPSULE. PO SCH (08:59)
[2018-08-21] MEDS: METOPROLOL TART IMMED RELEASE 25 MG TABLET PO SCH (08:59)
[2018-08-21] MEDS: fentaNYL 100MCG/HR 1 PATCH PATCH TD SCH (09:01)
[2018-08-21 11:21] VITALS: BP 170/70
[2018-08-21] MEDS ORDERED: amLODIPine BESYLATE 5 MG TABLET PO SCH (12:30)
--- NOTE | 2018-08-21 12:31 | PN ---
DATE: 08/21/2018 SUBJECTIVE: The patient has urosepsis with Proteus mirabilis. Cultures have come back, but due to her significant problem with multiple allergies it is becoming difficult to find an antibiotic that we can give her orally. She says she may have been able to take penicillin or amoxicillin in the past without any problems. We are going to see if we can this to a mild subcutaneous injection to determine. Her white count has come down nicely from 25,000 basically on the 6th, hemoglobin down to 10.1. The patient will continue to be monitored. OBJECTIVE: LUNGS: Diminished, but clear. CARDIOVASCULAR: Stable. ABDOMEN: Soft, nontender. VITAL SIGNS: Blood pressure 170/70, respiratory rate 14, pulse 70, afebrile. ABDOMEN: Soft, nontender. EXTREMITIES: No clubbing, cyanosis, nor edema. NEUROLOGIC: Stable. IMPRESSION: Urosepsis, Proteus mirabilis, essential hypertension, anemia of chronic disease, possible pneumonia, failure to thrive, generalized weakness. PLAN: Continue to monitor the patient accordingly and we will go ahead and continue antibiotics and trial to see if she can take an oral medication for the bladder infection. DARCIE TUCKER MD DR: ZANE/jody JOB#: [id number] / [id number]
[2018-08-21 13:01] VITALS: BP 170/70
[2018-08-21] MEDS ORDERED: AMPICILLIN 250 MG IM ONE (13:30)
[2018-08-21] MEDS ORDERED: AMOXICILLIN/K CLAV 875/125MG TABLET. PO SCH (21:00)
== END 2018-08-21 17:50 | DRG 871 ==
LOC: ER 17:11 → ICU 19:38 → UNDOADMIN 19:38 → ICU 08-20 12:37
PROVIDERS: ADMIT Family Medicine; ATTEND Family Medicine
DX: A41.9 Sepsis, unspecified organism (principal); J18.9 Pneumonia, unspecified organism; E44.0 Moderate protein-calorie malnutrition; N39.0 Urinary tract infection, site not specified; D63.8 Anemia in other chronic diseases classified elsewhere; E03.9 Hypothyroidism, unspecified; Z68.35 Body mass index [BMI] 35.0-35.9, adult; E78.00 Pure hypercholesterolemia, unspecified; F20.9 Schizophrenia, unspecified; I11.0 Hypertensive heart disease with heart failure; I25.10 Atherosclerotic heart disease of native coronary artery without angina pectoris; I25.2 Old myocardial infarction; I48.2 Chronic atrial fibrillation; I50.9 Heart failure, unspecified; J44.9 Chronic obstructive pulmonary disease, unspecified; K21.9 Gastro-esophageal reflux disease without esophagitis; Z79.01 Long term (current) use of anticoagulants; Z86.73 Personal history of transient ischemic attack (TIA), and cerebral infarction without residual deficits; Z90.49 Acquired absence of other specified parts of digestive tract; Z90.710 Acquired absence of both cervix and uterus; F32.9 Major depressive disorder, single episode, unspecified; F41.9 Anxiety disorder, unspecified; M19.90 Unspecified osteoarthritis, unspecified site; Z88.5 Allergy status to narcotic agent; Z88.0 Allergy status to penicillin; Z88.2 Allergy status to sulfonamides; Z88.8 Allergy status to other drugs, medicaments and biological substances; Z88.1 Allergy status to other antibiotic agents; Z91.041 Radiographic dye allergy status; E66.01 Morbid (severe) obesity due to excess calories; I16.0 Hypertensive urgency; R62.7 Adult failure to thrive; B96.4 Proteus (mirabilis) (morganii) as the cause of diseases classified elsewhere
CPT/HCPCS: 36415; 71045; 80053; 81001; 83605; 85007; 85025; 87040; 87086; 87186; 87641; 93005; J0290; J2185; 99285-25; J7030

== ENCOUNTER 2018-10-21 18:07 | Inpatient (IN) | payer MEDICARE, OTHER ==
[~2018-10-21] VITALS: Ht 172.7 cm; Wt 99.1 kg
[~2018-10-21 18:07] MED LIST changes: +APIX5TAB3 PO; +BISA10SU2 RC; +CRAN425C3 PO; +FAMO40TA4 PO; +LEVO75TA5 PO; +METO25TA4 PO; -MULT-223 PO; +MULT-629 PO; +SODI30SP NS
[2018-10-21] MEDS ORDERED: IV NORMAL SALINE 1,000ML 1,000 ML IV SCH ×2 (18:30→20:26)
--- NOTE | 2018-10-21 19:02 | ED.ADGEN ---
Past History Past Medical History: A-Fib, Anemia, Anxiety, Arthritis, CAD, CHF, Constipation , COPD, CVA, Depression, GERD, High Cholesterol, Hypertension, Hypothyroid, Schizophrenia, Sinusitis, UTI, Other Past Surgical History: Appendectomy, Cholecystectomy, Hysterectomy, Other Smoking: Non-smoker Alcohol Use: None Drug Use: None Adult General Chief Complaint Chief Complaint fever HPI HPI 83 years old female sent from skilled nursing due to fever and confusion, history was taken from the skilled nursing staff that they noticed change in the patient's behavior in the afternoon also she has a low-grade temperature of 99 nursing staff noticed multiple insulin abdominal wall there are red warm to touch patient has a chronic suprapubic Smith catheter Review of Systems Review of Systems Unable to be done due to mental status Current Medications Current Medications Current Medications Medications (Trade) Dose Ordered Sig/Romaine Start Time Stop Time Status Last Admin Dose Admin Linezolid 300 ml @ 300 mls/hr Q12HR 10/21/18 21:00 Sodium Chloride 1,000 ml @ 1,000 mls/hr Q1H 10/21/18 18:30 10/21/18 19:29 DC 10/21/18 19:24 1,000 MLS/HR Allergies Allergies Allergies Coded Allergies Type Severity Reaction Last Updated Verified Cephalexin Monohydrate Allergy Intermediate 12/18/15 Yes Iodinated Contrast Media - IV Dye Allergy Intermediate 12/18/15 Yes Penicillins Allergy Intermediate 12/18/15 Yes Sulfonylureas Allergy Intermediate 12/18/15 Yes amoxicillin Allergy Intermediate 12/29/14 Yes bacitracin zinc Allergy Intermediate 12/18/15 Yes ciprofloxacin HCl Allergy Intermediate 12/18/15 Yes colistimethate sodium Allergy Intermediate 12/18/15 Yes dexamethasone Allergy Intermediate 12/18/15 Yes doxycycline Allergy Intermediate 12/18/15 Yes gramicidin D Allergy Intermediate 12/18/15 Yes iodine Allergy Intermediate 12/18/15 Yes morphine Allergy Intermediate 12/18/15 Yes moxifloxacin HCl Allergy Intermediate 12/18/15 Yes neomycin sulfate Allergy Intermediate 12/18/15 Yes polymyxin B sulfate Allergy Intermediate 12/18/15 Yes pramoxine HCl Allergy Intermediate 12/18/15 Yes silver sulfadiazine Allergy Intermediate 12/18/15 Yes sulfamethoxazole Allergy Intermediate 12/29/14 Yes trimethoprim Allergy Intermediate 12/29/14 Yes vancomycin Allergy Intermediate 12/18/15 Yes Physical Exam Physical Exam Constitutional: Well developed, well nourished, no acute distress, non-toxic appearance. [] HENT: Normocephalic, atraumatic, bilateral external ears normal, oropharynx moist, no oral exudates, nose normal. [] Eyes: PERRLA, EOMI, conjunctiva normal, no discharge. [] Neck: Normal range of motion, no tenderness, supple, no stridor. [] Cardiovascular:Heart rate regular rhythm, no murmur [] Lungs & Thorax: Bilateral breath sounds clear to auscultation [] Abdomen: Bowel sounds normal, soft, no tenderness, no masses, no pulsatile masses. [] Skin: Multiple wounds and abdominal wall red swollen 54 cm also grade 1 decubitus ulcer on her buttocks Back: No tenderness, no CVA tenderness. [] Current Patient Data Vital Signs Vital Signs Date Time Temp Pulse Resp B/P (MAP) Pulse Ox O2 Delivery O2 Flow Rate FiO2 10/21/18 19:26 99.8 107 18 92 Nasal Cannula 2.0 Lab Results Laboratory Tests Test 10/21/18 19:14 10/21/18 19:44 White Blood Count 15.7 x10^3/uL (4.0-11.0) H Red Blood Count 4.62 x10^6/uL (3.50-5.40) Hemoglobin 12.8 g/dL (12.0-15.5) Hematocrit 39.4 % (36.0-47.0) Mean Corpuscular Volume 85 fL (79-100) Mean Corpuscular Hemoglobin 28 pg (25-35) Mean Corpuscular Hemoglobin Concent 32 g/dL (31-37) Red Cell Distribution Width 14.3 % (11.5-14.5) Platelet Count 192 x10^3/uL (140-400) Neutrophils (%) (Auto) 87 % (31-73) H Lymphocytes (%) (Auto) 7 % (24-48) L Monocytes (%) (Auto) 5 % (0-9) Eosinophils (%) (Auto) 1 % (0-3) Basophils (%) (Auto) 0 % (0-3) Neutrophils # (Auto) 13.7 x10^3uL (1.8-7.7) H Lymphocytes # (Auto) 1.1 x10^3/uL (1.0-4.8) Monocytes # (Auto) 0.7 x10^3/uL (0.0-1.1) Eosinophils # (Auto) 0.2 x10^3/uL (0.0-0.7) Basophils # (Auto) 0.1 x10^3/uL (0.0-0.2) Segmented Neutrophils % 91 % (35-66) H Lymphocytes % 5 % (24-48) L Monocytes % 2 % (0-10) Eosinophils % 2 % (0-5) Platelet Estimate Adequate (ADEQUATE) Hypochromasia Slight Anisocytosis Slight Urine Collection Type Unknown Urine Color Yellow Urine Clarity Cloudy Urine pH 8.0 Urine Specific Lewis 1.020 Urine Protein 100 mg/dl (NEG-TRACE) Urine Glucose (UA) Neg mg/dL (NEG) Urine Ketones (Stick) Neg mg/dL (NEG) Urine Blood Mod (NEG) Urine Nitrite Pos (NEG) Urine Bilirubin Neg (NEG) Urine Urobilinogen Dipstick 0.2 mg/dL (0.2 mg/dL) Urine Leukocyte Esterase Small (NEG) Urine RBC 1-2 /HPF (0-2) Urine WBC 5-10 /HPF (0-4) Urine Squamous Epithelial Cells Few /LPF Urine Bacteria Few /HPF (0-FEW) Lactic Acid Level 1.4 mmol/L (0.4-2.0) Influenza Type A (Rapid) Negative (NEGATIVE) Influenza Type B (Rapid) Negative (NEGATIVE) EKG EKG [] Radiology/Procedures Radiology/Procedures [] Course & Med Decision Making Course & Med Decision Making Case discussed with the family and who accepted the patient to be admitted [] Final Impression Final Impression [] Problems: (1) Sepsis Qualifiers: Qualified Codes: A41.9 - Sepsis, unspecified organism Dragon Disclaimer Dragon Disclaimer This electronic medical record was generated, in whole or in part, using a voice recognition dictation system. JACKSON BAÑUELOS MD Oct 21, 2018 19:02
[2018-10-21 19:36] LABS: BASO # 0.1 x10^3/uL (0.0-0.2); BASO % 0 % (0-3); EOS # 0.2 x10^3/uL (0.0-0.7); EOS % 1 % (0-3); HEMATOCRIT 39.4 % (36.0-47.0); HEMOGLOBIN 12.8 g/dL (12.0-15.5); LYMPH # 1.1 x10^3/uL (1.0-4.8); LYMPH % 7 % (24-48); MEAN CORPUSCULAR HEMOGLOBIN 28 pg (25-35); MEAN CORPUSCULAR HGB CONC 32 g/dL (31-37); MEAN CORPUSCULAR VOLUME 85 fL (79-100); MONO # 0.7 x10^3/uL (0.0-1.1); MONO % 5 % (0-9); NEUT # 13.7 x10^3uL (1.8-7.7); NEUT % 87 % (31-73); PLATELET COUNT 192 x10^3/uL (140-400); RED BLOOD COUNT 4.62 x10^6/uL (3.50-5.40); RED CELL DISTRIBUTION WIDTH 14.3 % (11.5-14.5); WHITE BLOOD COUNT 15.7 x10^3/uL (4.0-11.0)
[2018-10-21 19:42] LABS: BACTERIA,URINE FEW /HPF (0-FEW); BILIRUBIN,URINE NEG (NEG); CLARITY,URINE CLOUDY; COLOR,URINE YELLOW; GLUCOSE,URINE NEG (NEG); NITRITE,URINE POS (NEG); SQUAMOUS EPITHELIAL CELL,UR FEW /LPF; UROBILINOGEN,URINE 0.2 mg/dL (0.2 mg/dL)
--- NOTE | 2018-10-21 19:56 | EKG ---
[address] [address] Test Date: 2018-10-21 Test Time: 19:54:43 Pat Name: VINAY MARRERO Department: Room: Gender: F Sales Service Rep: JAMIN : [id number] Requested By: JACKSON BAÑUELOS Order Number: [id number] Reading MD: Antonio Montenegro MD Measurements Intervals [place] Rate: 97 P: 174 MS: 146 QRS: -149 QRSD: 90 T: 169 QT: 334 QTc: 428 Interpretive Statements SR LIMB LEAD MISPLACEMENT Electronically Signed On 10-22-2018 17:29:48 CDT by Antonio Montenegro MD
[2018-10-21 20:09] LABS: % EOS 2 % (0-5); % LYMPHS 5 % (24-48); % MONOS 2 % (0-10); % SEGS 91 % (35-66); PLT ESTIMATE ADEQUATE (ADEQUATE)
[2018-10-21 20:10] LABS: ANISOCYTOSIS SLIGHT; HYPOCHROMIA SLIGHT
[2018-10-21 20:23] LABS: INFLUENZA A PATIENT NEGATIVE (NEGATIVE); INFLUENZA B PATIENT NEGATIVE (NEGATIVE)
[2018-10-21] MEDS ORDERED: ONDANSETRON PF 4 MG/2 ML VIAL. IV PRN (20:30)
[2018-10-22 01:30] VITALS: BP 158/84
[2018-10-22] MEDS ORDERED: SODIUM CHLORIDE 0.65% NASAL SPRAY 45ML BOTTLE. NS PRN (02:45)
[2018-10-22] MEDS ORDERED: MAGNESIUM HYDROXIDE 2,400 MG/30 ML ORAL.SUSP. PO PRN (02:45)
[2018-10-22] MEDS ORDERED: BISACODYL TAB 5 MG TABLET.DR. PO PRN (02:45)
[2018-10-22] MEDS ORDERED: ACETAMINOPHEN 325 MG TABLET PO PRN (02:45)
[2018-10-22] MEDS ORDERED: LOPERAMIDE 2 MG CAPSULE PO PRN (02:45)
[2018-10-22] MEDS ORDERED: AMLO5TAB10 PO (03:02)
[2018-10-22] MEDS ORDERED: ATOR20TA58 PO (03:02)
[2018-10-22] MEDS ORDERED: AMIN30LI2 PO (03:02)
[2018-10-22] MEDS: LEVOTHYROXINE 75 MCG TABLET PO SCH ×3 (06:00→09:03)
[2018-10-22 06:29] VITALS: BP 113/69
[2018-10-22 06:44] LABS: BASO # 0.1 x10^3/uL (0.0-0.2); BASO % 0 % (0-3); EOS % 0 % (0-3); HEMATOCRIT 32.5 % (36.0-47.0); HEMOGLOBIN 10.6 g/dL (12.0-15.5); LYMPH # 1.1 x10^3/uL (1.0-4.8); LYMPH % 7 % (24-48); MEAN CORPUSCULAR HEMOGLOBIN 28 pg (25-35); MEAN CORPUSCULAR HGB CONC 33 g/dL (31-37); MEAN CORPUSCULAR VOLUME 86 fL (79-100); MONO # 0.9 x10^3/uL (0.0-1.1); MONO % 6 % (0-9); NEUT # 13.3 x10^3uL (1.8-7.7); NEUT % 86 % (31-73); PLATELET COUNT 166 x10^3/uL (140-400); RED CELL DISTRIBUTION WIDTH 13.8 % (11.5-14.5); WHITE BLOOD COUNT 15.4 x10^3/uL (4.0-11.0)
[2018-10-22 06:50] LABS: ALBUMIN 2.3 g/dL (3.4-5.0); ALBUMIN/GLOBULIN RATIO 0.6 (1.0-1.7); CALCIUM 8.2 mg/dL (8.5-10.1); CREATININE 0.8 mg/dL (0.6-1.0); GFR 68.8; POTASSIUM 4.1 mmol/L (3.5-5.1); TOTAL BILIRUBIN 0.3 mg/dL (0.2-1.0); TOTAL PROTEIN 5.9 g/dL (6.4-8.2)
--- NOTE | 2018-10-22 08:16 | RAD ---
Indication:Fever, short of air, tremors TECHNIQUE:Portable AP chest X-ray COMPARISON:08/17/2018 FINDINGS: Heart is normal in size. Lungs are hyperinflated. No focal consolidation. No pneumothorax or pleural effusion. Visualized bony thorax is within normal limits. IMPRESSION: Findings of COPD. No acute pulmonary process. Electronically signed by: Hudson Herr DO (10/22/2018 8:13 AM) [facility]
[2018-10-22] MEDS ORDERED: FENTANYL TP SCH (09:00)
[2018-10-22] MEDS ORDERED: NON FORMULARY ITEM (Amino Acids/Protein Hydrolys (Pro-Stat Liquid) 30 ML) PO SCH (09:00)
[2018-10-22] MEDS ORDERED: CRANBERRY EXTRACT PO SCH (09:00)
[2018-10-22] MEDS: MAGNESIUM OXIDE 400 MG TABLET PO SCH (09:02)
[2018-10-22] MEDS: CHOLECALCIFEROL (VITAMIN D3) 1,000 UNIT TABLET PO SCH (09:02)
[2018-10-22] MEDS: METOPROLOL TART IMMED RELEASE 25 MG TABLET PO SCH (09:02)
[2018-10-22] MEDS: NYSTATIN TOPICAL POWDER 15GM BOTTLE. TP SCH ×2 (09:02→20:31)
[2018-10-22] MEDS: POLYETHYLENE GLYCOL 3350 17 GM PACKET. PO SCH (09:02)
[2018-10-22] MEDS: MULTIVITAMIN with MINERAL TABLET. PO SCH (09:03)
[2018-10-22] MEDS: APIXABAN 2.5 MG TABLET PO SCH ×2 (09:03→20:30)
[2018-10-22] MEDS: FAMOTIDINE 20 MG TABLET PO SCH (09:03)
[2018-10-22] MEDS: LACTOBACILLUS RHAMNOSUS GG 1 CAPSULE. PO SCH ×2 (09:03→20:30)
[2018-10-22] MEDS: ACETAMINOPHEN 325 MG TABLET PO SCH ×2 (09:03→20:30)
[2018-10-22] MEDS: amLODIPine BESYLATE 5 MG TABLET PO SCH (09:03)
[2018-10-22] MEDS: DOCUSATE SODIUM 100 MG CAPSULE PO SCH (09:03)
[2018-10-22] MEDS: UBIDECARENONE 50 MG CAPSULE. PO SCH (09:04)
[2018-10-22] MEDS: CYANOCOBALAMIN (VITAMIN B-12) 250 MCG TABLET PO SCH (09:04)
--- NOTE | 2018-10-22 10:05 | HP ---
ADMIT DATE: 10/21/2018 HISTORY OF PRESENT ILLNESS: An 83-year-old female came in through the Emergency Room per resident of the [facility], came in with marked confusion, apparently recently been treated for a urinary tract infection; however, apparently the Augmentin was not sufficient. She came in. She has had a low-grade temperature as well as was becoming increasingly confused, disoriented. She has a chronic suprapubic Smith catheter. As a result of this, was brought in to the hospital for further evaluation and treatment. She was running a temperature approximately 100.1 with pulses upwards of 100/100. She was definitely septic. She also has had extreme high blood pressure. The patient was admitted for IV antibiotic therapy. She also has MULTIPLE ALLERGIES and consulted with the pharmacy for that situation. ALLERGIES: In any case, she has ALLERGY TO KEFLEX, IODINE, CONTRAST IV DYE, PENICILLIN, SULFONYLUREAS, AMOXICILLIN, BACITRACIN, CIPRO, DEXAMETHASONE, DOXYCYCLINE, CLINDAMYCIN, IODINE, MORPHINE, MOXIFLOXACIN, NEOMYCIN, POLYMYXIN, SILVER, SULFASALAZINE, SULFA DRUGS, TRIMETHOPRIM and VANCOMYCIN. FAMILY HISTORY: Noncontributory. MEDICATIONS: The patient's home medications were noted in the chart including Eliquis 2.5 mg b.i.d., Lipitor 20, metoprolol 25, Norvasc 5 mL, fentanyl 100 mcg, Tylenol, loperamide, docusate sodium, Zofran, Pepcid 40, Acidophilus, nystatin, vitamin D, amino acids, cranberry extract, and Coenzyme Q10. SOCIAL HISTORY: No smoking, alcohol or drug use. The patient is a DNR. REVIEW OF SYSTEMS: The patient basically does not have any complaints outside of the fact she just does not feel good. PHYSICAL EXAMINATION: GENERAL: As a result of this, the patient was so forth on exam, ill-appearing white female. VITAL SIGNS: Blood pressure 158/84, respiratory rate 20, pulse 98, temperature 100.1. HEENT: The patient's head was atraumatic, normocephalic. Eyes: PERRLA, jaundice. Mouth and throat were normal. NECK: Supple. LUNGS: Diminished throughout, but clear. CARDIOVASCULAR: Regular sinus rhythm, tachycardic. ABDOMEN: Soft, nontender, no rebound or guarding. Positive bowel sounds, no hepatosplenomegaly. Suprapubic catheter is intact. EXTREMITIES: No clubbing, cyanosis, no edema. NEUROLOGIC: The patient was alert and oriented x 3. . LABORATORY DATA AND IMAGING STUDIES: Chest x-ray was unremarkable. Labs showed a white count of 15,000. Chemistries were basically unremarkable, did show a low albumin of 2.3. UA was as noted 5-10 whites, positive nitrites. Culture is pending. PLAN: Continue on IV antibiotic therapy, Zyvox, make further evaluation on her as indicated. IMPRESSION: Sepsis, chronic urinary tract infections, severe protein malnutrition. DARCIE TUCKER MD DR: ZANE/jody JOB#: [id number] / [id number]
[2018-10-22 10:30] VITALS: BP 103/65
[2018-10-22 14:34] VITALS: BP 102/62
[2018-10-22] MEDS: ATORVASTATIN CALCIUM 20 MG TABLET PO SCH (20:30)
[2018-10-22 21:15] VITALS: BP 132/76
[2018-10-22 23:07] VITALS: BP 127/73
[2018-10-23 05:29] VITALS: BP 112/66
[2018-10-23 06:23] LABS: BASO # 0.1 x10^3/uL (0.0-0.2); BASO % 1 % (0-3); EOS # 0.3 x10^3/uL (0.0-0.7); EOS % 3 % (0-3); HEMATOCRIT 31.7 % (36.0-47.0); HEMOGLOBIN 10.5 g/dL (12.0-15.5); LYMPH # 1.3 x10^3/uL (1.0-4.8); LYMPH % 13 % (24-48); MEAN CORPUSCULAR HEMOGLOBIN 28 pg (25-35); MEAN CORPUSCULAR HGB CONC 33 g/dL (31-37); MEAN CORPUSCULAR VOLUME 85 fL (79-100); MONO # 0.7 x10^3/uL (0.0-1.1); MONO % 7 % (0-9); NEUT # 7.5 x10^3uL (1.8-7.7); NEUT % 76 % (31-73); PLATELET COUNT 144 x10^3/uL (140-400); RED BLOOD COUNT 3.73 x10^6/uL (3.50-5.40); RED CELL DISTRIBUTION WIDTH 14.3 % (11.5-14.5); WHITE BLOOD COUNT 9.9 x10^3/uL (4.0-11.0)
[2018-10-23 06:30] LABS: CALCIUM 8.5 mg/dL (8.5-10.1); CREATININE 0.9 mg/dL (0.6-1.0); GFR 60.1; POTASSIUM 4.1 mmol/L (3.5-5.1)
[2018-10-23] MEDS: MAGNESIUM OXIDE 400 MG TABLET PO SCH (08:36)
[2018-10-23] MEDS: METOPROLOL TART IMMED RELEASE 25 MG TABLET PO SCH (08:36)
[2018-10-23] MEDS: CYANOCOBALAMIN (VITAMIN B-12) 250 MCG TABLET PO SCH (08:36)
[2018-10-23] MEDS: POLYETHYLENE GLYCOL 3350 17 GM PACKET. PO SCH (08:36)
[2018-10-23] MEDS: UBIDECARENONE 50 MG CAPSULE. PO SCH (08:36)
[2018-10-23] MEDS: CHOLECALCIFEROL (VITAMIN D3) 1,000 UNIT TABLET PO SCH (08:37)
[2018-10-23] MEDS: APIXABAN 2.5 MG TABLET PO SCH ×2 (08:37→20:53)
[2018-10-23] MEDS: DOCUSATE SODIUM 100 MG CAPSULE PO SCH (08:37)
[2018-10-23] MEDS: LACTOBACILLUS RHAMNOSUS GG 1 CAPSULE. PO SCH ×2 (08:37→20:53)
[2018-10-23] MEDS: amLODIPine BESYLATE 5 MG TABLET PO SCH (08:37)
[2018-10-23] MEDS: MULTIVITAMIN with MINERAL TABLET. PO SCH (08:37)
[2018-10-23] MEDS: ACETAMINOPHEN 325 MG TABLET PO SCH ×2 (08:37→20:53)
[2018-10-23] MEDS: FAMOTIDINE 20 MG TABLET PO SCH (08:37)
[2018-10-23] MEDS: NYSTATIN TOPICAL POWDER 15GM BOTTLE. TP SCH ×2 (09:00→20:55)
[2018-10-23 11:18] VITALS: BP 105/67
[2018-10-23] MEDS ORDERED: BARIUM SULFATE 2.1% 450 ML SUSP PO ONE (11:45)
[2018-10-23] MEDS ORDERED: BARIUM SULFATE 0.1% 450 ML SUSP PO ONE (12:00)
--- NOTE | 2018-10-23 14:44 | RAD ---
CT ABD PEL W/ORAL CONTRST ONLY Indication: Left-sided abdominal pain Technique: Noncontrast CT imaging was performed of the abdomen pelvis, multiplanar reconstruction images submitted. Oral contrast was given. One or more of the following individualized dose reduction techniques were utilized for this examination: 1. Automated exposure control 2. Adjustment of the mA and/or kV according to patient size 3. Use of iterative reconstruction technique. Comparison: None Findings: There is mild dependent infiltrate at the periphery posteriorly of the right lower lobe near the lung base, likely some endobronchial density not fully included. There is also mild likely atelectasis left lower lobe near the lung base. There is hepatomegaly. There is hyperdense lesion of the superior left kidney about 1.3 cm in size. There is no left renal calculus or hydronephrosis. There is large calcification in the region of the right inferior renal pelvis extending to the inferior calyx, up to about 3.7 cm greatest dimension. There is mild right hydronephrosis. Right kidney is atrophic. Bowel is not significantly dilated. There is no free fluid or free air. Gallbladder is absent. There is no adrenal nodularity. There is hyperdensity diffusely in the lumbar spinal canal at multiple levels such as L2 through to the sacrum, intradural in location. There is mild the to moderate dextroscoliosis of the lumbar spine. There is mild right lateral subluxation L3 relative L4. There is suprapubic catheter present. There is degenerative change of the hips greater on the right. IMPRESSION: 1. There is large calcification of the inferior right renal pelvis extending to the pericaval ex, mild right hydronephrosis. Right kidney is atrophic. There is no left hydronephrosis. There is hyperdense lesion of the superior left kidney possibly a hemorrhagic or complex cyst, hyperdense mass not entirely excluded for which attempt at ultrasound visualization or pre and postcontrast CT if the patient is able to perform may be beneficial. 2. There is peripheral infiltrate of the visualized right lower lobe the lung base with likely endobronchial density, mild left base atelectasis. 3. There is diffuse hyperdensity in the lumbar spinal canal to the sacrum which may be due to calcification assuming no recent myelogram at outside facility. 4. There is hepatomegaly. Electronically signed by: Adebayo Vogt MD (10/23/2018 2:41 PM) [facility]
[2018-10-23 16:09] VITALS: BP 123/69
[2018-10-23 19:15] VITALS: BP 138/75
[2018-10-23] MEDS: ATORVASTATIN CALCIUM 20 MG TABLET PO SCH (20:53)
[2018-10-23 22:55] VITALS: BP 124/74
--- NOTE | 2018-10-24 01:38 | PN ---
DATE: 10/23/2018 SUBJECTIVE: The patient has urinary tract infection, sepsis. She is resting fairly comfortably, had a PICC line placed. She complains of abdominal pain in the left mid quadrant area. OBJECTIVE: VITAL SIGNS: Blood pressure 105/67, respiratory rate 20, pulse 72, afebrile. GENERAL: The patient denies any nausea or vomiting, but does have severe pain diaphragm down to the pubic area. EXTREMITIES: No clubbing, cyanosis or edema. NEUROLOGIC: Intact. LUNGS: Diminished throughout, but clear. CARDIOVASCULAR: Stable and as described above. IMPRESSION: Therefore, urinary tract infection, urosepsis as well as abdominal pain as indicated. The patient continues to make good progress overall. She will continue to be monitored. Also severe protein malnutrition. DARCIE TUCKER MD DR: ZANE/jody JOB#: [id number] / [id number]
[2018-10-24 03:12] VITALS: BP 135/78
[2018-10-24 05:57] VITALS: BP 122/74
[2018-10-24] MEDS: LEVOTHYROXINE 75 MCG TABLET PO SCH (06:05)
[2018-10-24] MEDS: UBIDECARENONE 50 MG CAPSULE. PO SCH (08:24)
[2018-10-24] MEDS: DOCUSATE SODIUM 100 MG CAPSULE PO SCH (08:24)
[2018-10-24] MEDS: CYANOCOBALAMIN (VITAMIN B-12) 250 MCG TABLET PO SCH (08:25)
[2018-10-24] MEDS: MULTIVITAMIN with MINERAL TABLET. PO SCH (08:25)
[2018-10-24] MEDS: ACETAMINOPHEN 325 MG TABLET PO SCH ×2 (08:25→20:25)
[2018-10-24] MEDS: CHOLECALCIFEROL (VITAMIN D3) 1,000 UNIT TABLET PO SCH (08:26)
[2018-10-24] MEDS: APIXABAN 2.5 MG TABLET PO SCH ×2 (08:26→20:24)
[2018-10-24] MEDS: MAGNESIUM OXIDE 400 MG TABLET PO SCH (08:26)
[2018-10-24] MEDS: LACTOBACILLUS RHAMNOSUS GG 1 CAPSULE. PO SCH ×2 (08:26→20:24)
[2018-10-24] MEDS: METOPROLOL TART IMMED RELEASE 25 MG TABLET PO SCH (08:27)
[2018-10-24] MEDS: FAMOTIDINE 20 MG TABLET PO SCH (08:27)
[2018-10-24] MEDS: amLODIPine BESYLATE 5 MG TABLET PO SCH (08:28)
[2018-10-24] MEDS: POLYETHYLENE GLYCOL 3350 17 GM PACKET. PO SCH (08:29)
[2018-10-24] MEDS: NYSTATIN TOPICAL POWDER 15GM BOTTLE. TP SCH ×2 (08:29→20:25)
[2018-10-24] MEDS ORDERED: fentaNYL 100MCG/HR 1 PATCH PATCH TD SCH (09:05)
[2018-10-24] MEDS: oxyCODONE/APAP 7.5/325 1 TAB TABLET PO PRN ×2 (11:18→20:25)
[2018-10-24] MEDS: ONDANSETRON ODT 4 MG TAB.RAPDIS PO PRN ×3 (11:22→23:25)
[2018-10-24 11:34] VITALS: BP 130/92
--- NOTE | 2018-10-24 11:49 | PN ---
DATE: 10/24/2018 SUBJECTIVE: The patient is an 83-year-old female who is in with pyelonephritis, elevated white counts and the patient has been having left flank pain, radiating down into her from underneath the diaphragm down into her groin. CAT scan shows a possible mass in that left kidney and also possible hydronephrosis in the right kidney. The patient otherwise is unable to take her fentanyl patch because of the Zyvox, although blood cultures have been negative and urine cultures are still pending on that result there. In any case, the patient's white count has come from 15,000 down to 9000, but she is still having quite a bit of pain in that left flank area, radiating down into the lower pubic area. OBJECTIVE: VITAL SIGNS: Blood pressure 122/70, respiratory rate 20, pulse 75, afebrile. GENERAL: The patient is alert and oriented. The pain is a 7-8/10. LUNGS: Diminished, but clear. CARDIOVASCULAR: Regular sinus rhythm, 1/6 systolic ejection murmur. ABDOMEN: Soft. Definite tenderness in that left mid to left lower quadrant area. NEUROLOGIC: The patient is pretty much bedridden. PLAN: We will go ahead and continue to monitor the patient. Continue on her IV antibiotic therapy. We will consider possible Urology consult down at [place] for this left renal mass and because of the amount of pain she is having in that area as well as continue care for her urinary tract infection and get her urostomy tube possibly replaced while she is down there. DARCIE TUCKER MD DR: ZANE/jody JOB#: [id number] / [id number]
[2018-10-24 15:12] VITALS: BP 128/71
[2018-10-24 19:20] VITALS: BP 155/81
[2018-10-24] MEDS: ATORVASTATIN CALCIUM 20 MG TABLET PO SCH (20:24)
[2018-10-24 23:23] VITALS: BP 175/92
[2018-10-25] MEDS: LEVOTHYROXINE 75 MCG TABLET PO SCH (05:44)
[2018-10-25 06:19] VITALS: BP 163/106
[2018-10-25] MEDS: POLYETHYLENE GLYCOL 3350 17 GM PACKET. PO SCH (07:55)
[2018-10-25] MEDS: LACTOBACILLUS RHAMNOSUS GG 1 CAPSULE. PO SCH (07:56)
[2018-10-25] MEDS: MULTIVITAMIN with MINERAL TABLET. PO SCH (07:56)
[2018-10-25] MEDS: APIXABAN 2.5 MG TABLET PO SCH (07:56)
[2018-10-25] MEDS: ACETAMINOPHEN 325 MG TABLET PO SCH (07:56)
[2018-10-25] MEDS: CHOLECALCIFEROL (VITAMIN D3) 1,000 UNIT TABLET PO SCH (07:56)
[2018-10-25] MEDS: FAMOTIDINE 20 MG TABLET PO SCH (07:56)
[2018-10-25] MEDS: DOCUSATE SODIUM 100 MG CAPSULE PO SCH (07:57)
[2018-10-25] MEDS: UBIDECARENONE 50 MG CAPSULE. PO SCH (07:57)
[2018-10-25] MEDS: MAGNESIUM OXIDE 400 MG TABLET PO SCH (07:57)
[2018-10-25] MEDS: CYANOCOBALAMIN (VITAMIN B-12) 250 MCG TABLET PO SCH (07:57)
[2018-10-25] MEDS: METOPROLOL TART IMMED RELEASE 25 MG TABLET PO SCH (07:57)
[2018-10-25] MEDS: amLODIPine BESYLATE 5 MG TABLET PO SCH (07:57)
[2018-10-25] MEDS: NYSTATIN TOPICAL POWDER 15GM BOTTLE. TP SCH (08:02)
[2018-10-25 09:30] VITALS: BP 138/82
--- NOTE | 2018-10-25 13:59 | DS ---
DATE OF DISCHARGE: 10/25/2018 HOSPITAL COURSE: The patient is an 83-year-old female, who came in with fever and chills. CT scan demonstrated mild infiltrative process in the right lower lobe as well as a large calcification of the inferior right renal pelvis, mild right hydronephrosis, right kidney is atrophic. There was a hyperdense lesion of the posterior superior left kidney, possibly hemorrhagic or complex cyst. The patient also has a suprapubic catheter that needed to be evaluated. She was also treated for an urinary tract infection. White count was nearly 16,000 when she came in, she had severe protein malnutrition. The patient's urine cultures were still pending at the time. She had multiple allergies, stated on Zyvox, had to be taken off fentanyl and placed on Percocet for her chronic pain. She is pretty much bedridden with arthritis and generalized weakness. In any case, the patient made fairly good progress overall, though because of this pain she had in her left flank area, radiating down to her left groin and this mass that is in her left kidney and her suprapubic catheter needed to be changed. The patient was transferred down to [place] for urological consideration. IMPRESSION: Therefore, left flank pain, renal mass, essential hypertension, generalized weakness and deconditioning, severe protein malnutrition, hyperglycemia, history of atrial fibrillation, chronic Eliquis therapy or anticoagulation therapy, multiple allergies, major depression syndrome, and suprapubic catheter. DARCIE TUCKER MD DR: ZANE/jody JOB#: [id number] / [id number]
== END 2018-10-25 09:55 | disposition short-term general hospital (02) | DRG 871 ==
LOC: ER 18:07 → 1 SOUTH 20:40
PROVIDERS: ADMIT Family Medicine; ATTEND Family Medicine
PROC: 05HY33Z Insertion of Infusion Device into Upper Vein, Percutaneous Approach (ICD-10-PCS; principal; 2018-10-22)
DX: A41.9 Sepsis, unspecified organism (principal); E43 Unspecified severe protein-calorie malnutrition; N12 Tubulo-interstitial nephritis, not specified as acute or chronic; E03.9 Hypothyroidism, unspecified; E78.00 Pure hypercholesterolemia, unspecified; F20.9 Schizophrenia, unspecified; I11.0 Hypertensive heart disease with heart failure; I25.10 Atherosclerotic heart disease of native coronary artery without angina pectoris; I48.91 Unspecified atrial fibrillation; I50.9 Heart failure, unspecified; J44.9 Chronic obstructive pulmonary disease, unspecified; F32.9 Major depressive disorder, single episode, unspecified; F41.9 Anxiety disorder, unspecified; G89.29 Other chronic pain; K21.9 Gastro-esophageal reflux disease without esophagitis; M19.90 Unspecified osteoarthritis, unspecified site; Z66 Do not resuscitate; Z79.01 Long term (current) use of anticoagulants; Z86.73 Personal history of transient ischemic attack (TIA), and cerebral infarction without residual deficits; Z90.49 Acquired absence of other specified parts of digestive tract; Z90.710 Acquired absence of both cervix and uterus; Z88.1 Allergy status to other antibiotic agents; Z88.0 Allergy status to penicillin; Z88.2 Allergy status to sulfonamides; Z88.8 Allergy status to other drugs, medicaments and biological substances; R73.9 Hyperglycemia, unspecified; Z68.33 Body mass index [BMI] 33.0-33.9, adult
CPT/HCPCS: 36415; 36569; 71045; 74176; 80048; 80053; 81001; 83605; 85007; 85025; 87040; 87641; 87804; 93005; 96360; 96361; J2020; Q0162; 99285-25; J7030

== ENCOUNTER 2019-03-07 18:07 | Emergency (ER) | payer MEDICARE, OTHER ==
[~2019-03-07] VITALS: Ht 167.6 cm; Wt 108.9 kg
[~2019-03-07 18:07] MED LIST changes: +AMIN30LI2 PO; +AMLO5TAB10 PO; +ATOR20TA58 PO; -BISA10SU2 RC; +BISA10SU4 RC
[2019-03-07] MEDS ORDERED: IV RINGERS SOLUTION,LACTATED 1,000 ML IV SCH (18:31)
--- NOTE | 2019-03-07 18:35 | ED.ADGEN ---
Past History Past Medical History: Other Past Surgical History: No Surgical History Smoking: Non-smoker Alcohol Use: None Drug Use: None Adult General Chief Complaint Chief Complaint ".. I just so weak.. so tired..." HPI HPI Patient is a 83 year old FEMALE who presents with complaints of fatigue and weakness. Abdomen pain, nausea and vomiting. Suspect ileus. Pt. reportedly had very poor intake.. Pt. has distended abd. but has passed some gas. No recent change in meds. No history of travel. No history of specific ill contacts. Patient has had previous episodes of ileus but they've always resolved spontaneously. Pt. follows with Dr. Tucker. Review of Systems Review of Systems Constitutional: Denies fever or chills [] Eyes: Denies change in visual acuity, redness, or eye pain [] HENT: Denies nasal congestion or sore throat [] Respiratory: Denies cough or shortness of breath [] Cardiovascular: No additional information not addressed in HPI [] GI: Complaints of distended abdomen abdominal pain, complains of severe nausea,. Denies current vomiting, bloody stools or diarrhea [] : Denies dysuria or hematuria [] Musculoskeletal: Denies back pain or joint pain []complains of generalized weakness and fatigue Integument: Denies rash or skin lesions [] Neurologic: Denies headache, focal weakness or sensory changes [] Endocrine: Denies polyuria or polydipsia [] All other systems were reviewed and found to be within normal limits, except as documented in this note. Family History Family History Noncontributory to presentation Current Medications Current Medications Current Medications Medications (Trade) Dose Ordered Sig/Romaine Start Time Stop Time Status Last Admin Dose Admin Diphenhydramine HCl (Benadryl) 50 mg 1X ONCE 03/07/19 19:30 03/07/19 19:31 DC Iohexol (Omnipaque 240 Mg/ml) 30 ml 1X ONCE 03/07/19 19:45 03/07/19 19:46 DC 03/07/19 21:31 30 ML Lactated Ringer's 1,000 ml @ 100 mls/hr Q10H 03/07/19 18:31 03/08/19 02:51 DC 03/07/19 19:45 100 MLS/HR Metronidazole 100 ml @ 100 mls/hr 1X ONCE 03/07/19 19:15 03/07/19 20:14 DC 03/07/19 21:00 100 MLS/HR Sodium Chloride 250 ml @ As Directed STK-MED ONCE 03/07/19 19:44 03/07/19 19:45 DC Vancomycin HCl (Vancomycin) 1 gm STK-MED ONCE 03/07/19 19:44 03/07/19 19:45 DC Vancomycin HCl 1 gm/Sodium Chloride 250 ml @ 250 mls/hr 1X ONCE 03/07/19 19:15 03/07/19 20:14 DC 03/07/19 19:59 250 MLS/HR Allergies Allergies Allergies Coded Allergies Type Severity Reaction Last Updated Verified Cephalexin Monohydrate Allergy Intermediate 12/18/15 Yes Iodinated Contrast Media - IV Dye Allergy Intermediate 12/18/15 Yes Penicillins Allergy Intermediate 12/18/15 Yes Sulfonylureas Allergy Intermediate 12/18/15 Yes amoxicillin Allergy Intermediate 12/29/14 Yes bacitracin zinc Allergy Intermediate 12/18/15 Yes ciprofloxacin HCl Allergy Intermediate 12/18/15 Yes colistimethate sodium Allergy Intermediate 12/18/15 Yes dexamethasone Allergy Intermediate 12/18/15 Yes doxycycline Allergy Intermediate 12/18/15 Yes gramicidin D Allergy Intermediate 12/18/15 Yes iodine Allergy Intermediate 12/18/15 Yes morphine Allergy Intermediate 12/18/15 Yes moxifloxacin HCl Allergy Intermediate 12/18/15 Yes neomycin sulfate Allergy Intermediate 12/18/15 Yes polymyxin B sulfate Allergy Intermediate 12/18/15 Yes pramoxine HCl Allergy Intermediate 12/18/15 Yes silver sulfadiazine Allergy Intermediate 12/18/15 Yes sulfamethoxazole Allergy Intermediate 12/29/14 Yes trimethoprim Allergy Intermediate 12/29/14 Yes vancomycin Allergy Intermediate 12/18/15 Yes Physical Exam Physical Exam Constitutional: In moderately acute distress,ill appearance. [] HENT: Normocephalic, atraumatic, bilateral external ears normal, oropharynx dry, no oral exudates, nose normal. [] Eyes: PERRLA, EOMI, conjunctiva normal, no discharge. [] Neck: Normal range of motion, no tenderness, supple, no stridor. [] Cardiovascular: Tachycardia Heart rate regular rhythm,, PMI to the left no murmur [] Lungs & Thorax: Bilateral breath sounds equal at apex auscultation [] Abdomen: Bowel sounds are proactive, soft, normalized tenderness, no masses, no pulsatile masses. [] Distended tympanic Skin: Warm, dry, no erythema, no rash. Poor turgor Back: No tenderness, no CVA tenderness. [] Extremities: No tenderness, no cyanosis, no clubbing, ROM intact, no edema. 3 changes Neurologic: Alert, generalized weakness- motor function, distal sensory function, no new gross focal deficits noted. Her family members Psychologic: Affect anxious and depressed Current Patient Data Vital Signs Vital Signs Date Time Temp Pulse Resp B/P (MAP) Pulse Ox O2 Delivery O2 Flow Rate FiO2 03/08/19 02:40 95 20 155/101 (119) 90 Room Air 03/07/19 20:01 99.9 Lab Results Laboratory Tests Test 03/07/19 18:40 03/07/19 19:35 03/07/19 20:18 Urine Collection Type Unknown Urine Color Yellow Urine Clarity Cloudy Urine pH >8.5 Urine Specific [place] 1.015 Urine Protein >100 mg/dl (NEG-TRACE) Urine Glucose (UA) Neg mg/dL (NEG) Urine Ketones (Stick) 80 mg/dL (NEG) Urine Blood Small (NEG) Urine Nitrite Neg (NEG) Urine Bilirubin Neg (NEG) Urine Urobilinogen Dipstick 0.2 mg/dL (0.2 mg/dL) Urine Leukocyte Esterase Small (NEG) Urine RBC 11-20 /HPF (0-2) Urine WBC 20-40 /HPF (0-4) Urine Squamous Epithelial Cells Occ /LPF Urine Transitional Epithelial Cells Occ /LPF Urine Bacteria Many /HPF (0-FEW) Urine Mucus Slight /LPF Urine Opiates Screen Neg (NEG) Urine Methadone Screen Neg (NEG) Urine Barbiturates Neg (NEG) Urine Phencyclidine Screen Neg (NEG) Urine Amphetamine/Methamphetamine Neg (NEG) Urine Benzodiazepines Screen Neg (NEG) Urine Cocaine Screen Neg (NEG) Urine Cannabinoids Screen Neg (NEG) Urine Ethyl Alcohol Neg (NEG) White Blood Count 14.1 x10^3/uL (4.0-11.0) H Red Blood Count 5.30 x10^6/uL (3.50-5.40) Hemoglobin 14.6 g/dL (12.0-15.5) Hematocrit 44.7 % (36.0-47.0) Mean Corpuscular Volume 85 fL (79-100) Mean Corpuscular Hemoglobin 28 pg (25-35) Mean Corpuscular Hemoglobin Concent 33 g/dL (31-37) Red Cell Distribution Width 14.3 % (11.5-14.5) Platelet Count 244 x10^3/uL (140-400) Neutrophils (%) (Auto) 90 % (31-73) H Lymphocytes (%) (Auto) 7 % (24-48) L Monocytes (%) (Auto) 3 % (0-9) Eosinophils (%) (Auto) 0 % (0-3) Basophils (%) (Auto) 0 % (0-3) Neutrophils # (Auto) 12.7 x10^3uL (1.8-7.7) H Lymphocytes # (Auto) 1.0 x10^3/uL (1.0-4.8) Monocytes # (Auto) 0.4 x10^3/uL (0.0-1.1) Eosinophils # (Auto) 0.0 x10^3/uL (0.0-0.7) Basophils # (Auto) 0.1 x10^3/uL (0.0-0.2) Erythrocyte Sedimentation Rate 30 (0-25) H Thyroid Stimulating Hormone (TSH) 1.085 uIU/mL (0.358-3.740) Prothrombin Time 10.2 SEC (9.4-11.4) Prothrombin Time INR 1.0 (0.9-1.1) Activated Partial Thromboplast Time 26 SEC (23-33) D-Dimer (Julieta) 0.56 mg/L (0.00-0.50) H Sodium Level 140 mmol/L (136-145) Potassium Level 3.6 mmol/L (3.5-5.1) Chloride Level 101 mmol/L (98-107) Carbon Dioxide Level 31 mmol/L (21-32) Anion Gap 8 (6-14) Blood Urea Nitrogen 17 mg/dL (7-20) Creatinine 0.7 mg/dL (0.6-1.0) Estimated GFR (Cockcroft-Gault) 80.3 Glucose Level 159 mg/dL (70-99) H Lactic Acid Level 1.9 mmol/L (0.4-2.0) Calcium Level 9.1 mg/dL (8.5-10.1) Magnesium Level 1.9 mg/dL (1.8-2.4) Total Bilirubin 0.3 mg/dL (0.2-1.0) Direct Bilirubin 0.1 mg/dL (0.0-0.2) Aspartate Amino Transferase (AST) 14 U/L (15-37) L Alanine Aminotransferase (ALT) 17 U/L (14-59) Alkaline Phosphatase 133 U/L (46-116) H Creatine Kinase 47 U/L (26-192) Troponin I Quantitative 0.034 ng/mL (0-0.055) PC-Lwf-R-Type Natriuretic Peptide 1031 pg/mL (0-449) H Total Protein 7.6 g/dL (6.4-8.2) Albumin 3.3 g/dL (3.4-5.0) L Amylase Level 40 U/L (25-115) Lipase 36 U/L (73-393) L Microbiology 03/07/19 Blood Culture - Preliminary, Resulted NO GROWTH AFTER 3 DAYS... 03/07/19 Urine Culture - Preliminary, Resulted 03/07/19 Urine Culture Result 1 (KIMO) - Preliminary, Resulted Microbiology 03/07/19 Blood Culture - Preliminary, Resulted NO GROWTH AFTER 2 DAYS... 03/07/19 Urine Culture - Preliminary, Resulted 03/07/19 Urine Culture Result 1 (KIMO) - Preliminary, Resulted EKG EKG My interpretation EKG shows a sinus rhythm at 89 bpm. Left axis deviations and sick block. Anterior lateral strain pattern[] Radiology/Procedures Radiology/Procedures [address] [address] IMAGING REPORT Signed PATIENT: VINAY MARRERO ACCOUNT: [id number] : 1935 LOCATION: ER AGE: 83 SEX: F EXAM STATUS: REG ER ORD. PHYSICIAN: JENNIFER MDOI MD REASON: WEAKNESS PROCEDURE: CT HEAD WO CONTRAST PQRS Compliance Statement: One or more of the following individualized dose reduction techniques were utilized for this examination: 1. Automated exposure control 2. Adjustment of the mA and/or kV according to patient size 3. Use of iterative reconstruction technique CT head without contrast 03/07/2019 6:31 PM INDICATION: Weakness COMPARISON: CT head March 05, 2016 TECHNIQUE: Multiple axial CT images of the head were obtained from skull base through the vertex without intravenous contrast. FINDINGS: Head: Ventricles, sulci and basal cisterns are prominent compatible with mild generalized cerebral volume loss. There is no hydrocephalus. Akers-white matter differentiation is normal. There is no acute intracranial hemorrhage. There is no mass, mass effect or midline shift. Posterior fossa is normal in appearance. Visualized portions of the orbits are normal with exception of bilateral lens replacement and left sided senescent calcifications. Moderate opacification of the anterior ethmoid air cells, left greater than right. Moderate opacification of the sinuses, left greater than right. Mastoid air cells are well aerated. Scalp and calvaria are normal. IMPRESSION: No acute intracranial hemorrhage. Frontoethmoidal sinus inflammatory changes are present. Electronically signed by: Cindi Munguia MD (03/07/2019 7:09 PM) [facility] DICTATED AND SIGNED BY: CINDI MUNGUIA MD DATE: 03/07/191908 CC: DARCIE TUCKER MD; JENNIFER MODI MD ~ [place] [address] IMAGING REPORT Signed PATIENT: VINAY MARRERO ACCOUNT: [id number] : 1935 LOCATION: ER AGE: 83 SEX: F EXAM STATUS: REG ER ORD. PHYSICIAN: JENNIFER MODI MD REASON: Abdomen pain, nausea, vomiting, bowel obstruction PROCEDURE: CT ABD PEL W/ORAL CONTRST ONLY PQRS Compliance Statement: One or more of the following individualized dose reduction techniques were utilized for this examination: 1. Automated exposure control 2. Adjustment of the mA and/or kV according to patient size 3. Use of iterative reconstruction technique There is bibasilar subsegmental atelectasis. Heart size is enlarged. Small hiatal hernia. Evaluation of the solid abdominal viscera is limited by lack of intravenous contrast. Liver, spleen, bilateral adrenal glands and pancreas are normal in appearance. Gallbladder surgically absent. Abdominal aorta is normal in course and caliber. There are no pathologically enlarged lymph nodes in abdomen and pelvis. There is no free fluid or free intraperitoneal air. Oral contrast was administered. Contrast does not extend beyond the gastric antrum. Stomach remains mildly distended. There is focal caliber change immediately beyond the superior mesenteric artery. Moderate volume fecal contents noted throughout the colon. There are no dilated loops of small or large bowel. Appendix is not definitively visualized. No pericecal inflammatory changes are identified. Duodenal diverticulum measures 4.0 x 4.1 cm. Hyperdensity lesion within the superior pole the left kidney measures 15 mm and is suggestive of a cyst complicated by hemorrhage or protein. There is atrophy of the right kidney with chronic staghorn calculus in the right renal pelvis measuring 1.6 x 2.5 x 2.8 cm. For a catheter is identified within the urinary bladder. Chronic degenerative changes of the lumbar spine are present with dextro convex scoliosis. Residual intrathecal contrast or calcification is identified. Cystic lesion in the left adnexa measures 3.3 x 2.3 cm. Additional cystic lesion in the left adnexa measures 2.1 x 1.5 cm. IMPRESSION: 1. Mild persistent gastric distention status post nasogastric tube placement. Small hiatal hernia. Consideration may be given for SMA syndrome. There is a duodenal diverticulum s measuring 4.1 x 4.0 cm without definite adjacent inflammation. Gastroparesis may have similar appearance. 2. Chronic staghorn calculus in the right kidney with parenchymal atrophy. 3. 2 cystic lesions are identified in the left adnexa are indeterminate. 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 Electronically signed by: Cindi Munguia MD (03/07/2019 10:52 PM) [facility] DICTATED AND SIGNED BY: CINDI MUNGUIA MD DATE: 03/07/19 6064 CC: DARCIE TUCKER MD; JENNIFER MODI MD ~ [][address] [address] IMAGING REPORT Signed PATIENT: VINAY MARRERO ACCOUNT: [id number] : 1935 LOCATION: ER AGE: 83 SEX: F EXAM STATUS: REG ER ORD. PHYSICIAN: JENNIFER MODI MD REASON: CHEST AND ABD PAIN PROCEDURE: ACUTE ABDOMEN SERIES Acute abdominal series with single view chest 03/07/2019 INDICATION: Chest and abdominal pain. COMPARISON: Chest radiograph October 21, 2018 TECHNIQUE: Single view of the chest, upright view of the abdomen and 3 supine views of abdomen are provided. FINDINGS: Cardiac mediastinal silhouette is borderline in size, stable. No pleural effusions. No pulmonary vascular congestion or pneumothorax. Remote healed right-sided rib deformity involving the right posterior lateral fifth rib. No focal airspace consolidation. Lungs are clear. There is no free intraperitoneal air. Cholecystectomy changes are present. There is severe dilatation of the stomach. Large bowel loops do not appear dilated. Moderate amount of stool is noted throughout the colon. No definite dilated small bowel loops are visualized although evaluation is limited secondary to gastric distention. IMPRESSION: 1. Severe gastric distention which may reflect gastric outlet obstruction or distal bowel obstruction. Further evaluation with cross-sectional imaging may be of benefit. 2. No acute cardiopulmonary process. Electronically signed by: Cindi Munguia MD (03/07/2019 7:30 PM) [facility] DICTATED AND SIGNED BY: CINDI MUNGUIA MD DATE: 03/07/191929 CC: DARCIE TUCKER MD; JENNIFER MODI MD ~ Course & Med Decision Making Course & Med Decision Making Pertinent Labs and Imaging studies reviewed. (See chart for details) Discussed presentation, testing and tx plan with Dr. Tucker, Dr. Amin, Dr. Mcclain and Daughter, Will transfer to [facility]- possible surgery if ileus does not clear and or pt. deteriorates further. [] Final Impression Final Impression 1. Abdomen Pain 2. Gastritis 3. Ileus 4. Leukocytosis 14.1 5. DM 159 6. Chronic CHF- diastolic and systolic dysfunction 7. Urinary tract infection[] 8. Ileus- Dragon Disclaimer Dragon Disclaimer This electronic medical record was generated, in whole or in part, using a voice recognition dictation system. Dragon Disclaimer This chart was dictated in whole or in part using Voice Recognition software in a busy, high-work load, and often noisy Emergency Department environment. It may contain unintended and wholly unrecognized errors or omissions. Dragon Disclaimer This chart was dictated in whole or in part using Voice Recognition software in a busy, high-work load, and often noisy Emergency Department environment. It may contain unintended and wholly unrecognized errors or omissions. JENNIFER MODI MD Mar 07, 2019 18:35
[2019-03-07 19:04] LABS: BARBITURATES NEG (NEG); BENZODIAZEPINES NEG (NEG); CANNABINOIDS NEG (NEG); COCAINE NEG (NEG); METHADONE NEG (NEG); OPIATES NEG (NEG); PHENCYCLIDINE NEG (NEG)
[2019-03-07 19:05] LABS: AMPHETAMINE/METHAMPHETAMINE NEG (NEG)
[2019-03-07 19:07] LABS: BACTERIA,URINE MANY /HPF (0-FEW); BILIRUBIN,URINE NEG (NEG); CLARITY,URINE CLOUDY; COLOR,URINE YELLOW; GLUCOSE,URINE NEG (NEG); NITRITE,URINE NEG (NEG); UROBILINOGEN,URINE 0.2 mg/dL (0.2 mg/dL); WBC,URINE 20-40 /HPF (0-4)
[2019-03-07 19:08] LABS: SQUAMOUS EPITHELIAL CELL,UR OCC /LPF
--- NOTE | 2019-03-07 19:12 | RAD ---
PQRS Compliance Statement: One or more of the following individualized dose reduction techniques were utilized for this examination: 1. Automated exposure control 2. Adjustment of the mA and/or kV according to patient size 3. Use of iterative reconstruction technique CT head without contrast 03/07/2019 6:31 PM INDICATION: Weakness COMPARISON: CT head March 05, 2016 TECHNIQUE: Multiple axial CT images of the head were obtained from skull base through the vertex without intravenous contrast. FINDINGS: Head: Ventricles, sulci and basal cisterns are prominent compatible with mild generalized cerebral volume loss. There is no hydrocephalus. Akers-white matter differentiation is normal. There is no acute intracranial hemorrhage. There is no mass, mass effect or midline shift. Posterior fossa is normal in appearance. Visualized portions of the orbits are normal with exception of bilateral lens replacement and left sided senescent calcifications. Moderate opacification of the anterior ethmoid air cells, left greater than right. Moderate opacification of the sinuses, left greater than right. Mastoid air cells are well aerated. Scalp and calvaria are normal. IMPRESSION: No acute intracranial hemorrhage. Frontoethmoidal sinus inflammatory changes are present. Electronically signed by: Peggy Longoria MD (03/07/2019 7:09 PM) [facility]
[2019-03-07] MEDS ORDERED: VANCOMYCIN 1 GM in IV NORMAL SALINE 250ML 250 ML IV ONE (19:15)
[2019-03-07] MEDS ORDERED: diphenhydrAMINE 50 MG/ML VIAL IV ONE (19:30)
--- NOTE | 2019-03-07 19:33 | RAD ---
Acute abdominal series with single view chest 03/07/2019 INDICATION: Chest and abdominal pain. COMPARISON: Chest radiograph October 21, 2018 TECHNIQUE: Single view of the chest, upright view of the abdomen and 3 supine views of abdomen are provided. FINDINGS: Cardiac mediastinal silhouette is borderline in size, stable. No pleural effusions. No pulmonary vascular congestion or pneumothorax. Remote healed right-sided rib deformity involving the right posterior lateral fifth rib. No focal airspace consolidation. Lungs are clear. There is no free intraperitoneal air. Cholecystectomy changes are present. There is severe dilatation of the stomach. Large bowel loops do not appear dilated. Moderate amount of stool is noted throughout the colon. No definite dilated small bowel loops are visualized although evaluation is limited secondary to gastric distention. IMPRESSION: 1. Severe gastric distention which may reflect gastric outlet obstruction or distal bowel obstruction. Further evaluation with cross-sectional imaging may be of benefit. 2. No acute cardiopulmonary process. Electronically signed by: Peggy Longoria MD (03/07/2019 7:30 PM) [facility]
[2019-03-07] MEDS ORDERED: IV NORMAL SALINE 250ML 250 ML ONE (19:44)
[2019-03-07] MEDS ORDERED: VANCOMYCIN 1 GM VIAL. ONE (19:44)
[2019-03-07] MEDS ORDERED: IOHEXOL 240 MG/ML 50ML VIAL. PO ONE (19:45)
[2019-03-07 19:56] LABS: BASO # 0.1 x10^3/uL (0.0-0.2); BASO % 0 % (0-3); EOS % 0 % (0-3); HEMATOCRIT 44.7 % (36.0-47.0); HEMOGLOBIN 14.6 g/dL (12.0-15.5); LYMPH % 7 % (24-48); MEAN CORPUSCULAR HEMOGLOBIN 28 pg (25-35); MEAN CORPUSCULAR HGB CONC 33 g/dL (31-37); MEAN CORPUSCULAR VOLUME 85 fL (79-100); MONO # 0.4 x10^3/uL (0.0-1.1); MONO % 3 % (0-9); NEUT # 12.7 x10^3uL (1.8-7.7); NEUT % 90 % (31-73); PLATELET COUNT 244 x10^3/uL (140-400); RED CELL DISTRIBUTION WIDTH 14.3 % (11.5-14.5); WHITE BLOOD COUNT 14.1 x10^3/uL (4.0-11.0)
--- NOTE | 2019-03-07 20:49 | EKG ---
[address] [address] Test Date: 2019-03-07 Test Time: 18:49:38 Pat Name: VINAY MARRERO Department: Room: Gender: F Carbider: JAMIN : 1935 Requested By: JENNIFER MODI Order Number: [id number] Reading MD: Measurements Intervals [place] Rate: 89 P: 23 [place]: 150 QRS: -61 QRSD: 122 T: -5 QT: 396 QTc: 489 Interpretive Statements SINUS RHYTHM ABNORMAL LEFT AXIS DEVIATION LEFT ANTERIOR FASCICULAR BLOCK INCOMPLETE RIGHT BUNDLE BRANCH BLOCK LEFT VENTRICULAR HYPERTROPHY QRS(T) CONTOUR ABNORMALITY CONSIDER ANTEROLATERAL MYOCARDIAL DAMAGE CONSIDER INFERIOR INFARCT ABNORMAL ECG RI6.01 Compared to ECG 10/21/2018 19:54:43 Left-axis deviation now present Left anterior fascicular block now present Incomplete right bundle-branch block now present Left ventricular hypertrophy now present Myocardial infarct finding now present
[2019-03-07 21:00] LABS: SEDIMENTATION RATE 30 (0-25)
[2019-03-07 21:04] LABS: ALBUMIN 3.3 g/dL (3.4-5.0); CALCIUM 9.1 mg/dL (8.5-10.1); CREATININE 0.7 mg/dL (0.6-1.0); DIRECT BILIRUBIN 0.1 mg/dL (0.0-0.2); GFR 80.3; MAGNESIUM 1.9 mg/dL (1.8-2.4); POTASSIUM 3.6 mmol/L (3.5-5.1); TOTAL BILIRUBIN 0.3 mg/dL (0.2-1.0); TOTAL PROTEIN 7.6 g/dL (6.4-8.2)
--- NOTE | 2019-03-07 22:55 | RAD ---
PQRS Compliance Statement: One or more of the following individualized dose reduction techniques were utilized for this examination: 1. Automated exposure control 2. Adjustment of the mA and/or kV according to patient size 3. Use of iterative reconstruction technique There is bibasilar subsegmental atelectasis. Heart size is enlarged. Small hiatal hernia. Evaluation of the solid abdominal viscera is limited by lack of intravenous contrast. Liver, spleen, bilateral adrenal glands and pancreas are normal in appearance. Gallbladder surgically absent. Abdominal aorta is normal in course and caliber. There are no pathologically enlarged lymph nodes in abdomen and pelvis. There is no free fluid or free intraperitoneal air. Oral contrast was administered. Contrast does not extend beyond the gastric antrum. Stomach remains mildly distended. There is focal caliber change immediately beyond the superior mesenteric artery. Moderate volume fecal contents noted throughout the colon. There are no dilated loops of small or large bowel. Appendix is not definitively visualized. No pericecal inflammatory changes are identified. Duodenal diverticulum measures 4.0 x 4.1 cm. Hyperdensity lesion within the superior pole the left kidney measures 15 mm and is suggestive of a cyst complicated by hemorrhage or protein. There is atrophy of the right kidney with chronic staghorn calculus in the right renal pelvis measuring 1.6 x 2.5 x 2.8 cm. For a catheter is identified within the urinary bladder. Chronic degenerative changes of the lumbar spine are present with dextro convex scoliosis. Residual intrathecal contrast or calcification is identified. Cystic lesion in the left adnexa measures 3.3 x 2.3 cm. Additional cystic lesion in the left adnexa measures 2.1 x 1.5 cm. IMPRESSION: 1. Mild persistent gastric distention status post nasogastric tube placement. Small hiatal hernia. Consideration may be given for SMA syndrome. There is a duodenal diverticulum s measuring 4.1 x 4.0 cm without definite adjacent inflammation. Gastroparesis may have similar appearance. 2. Chronic staghorn calculus in the right kidney with parenchymal atrophy. 3. 2 cystic lesions are identified in the left adnexa are indeterminate. 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 Electronically signed by: Peggy Longoria MD (03/07/2019 10:52 PM) [facility]
[2019-03-08 02:40] VITALS: BP 155/101
--- NOTE | 2019-03-08 09:05 | RAD ---
KUB Clinical Indication: NG placement. Comparison: Acute abdominal series, earlier same day. Findings: Image is centered over the lower chest and upper abdomen. There is enteric tube, tip is in the proximal stomach. Gaseous distention of the stomach appears slightly improved. Ectatic thoracic aorta. Cardiac size upper limits of normal. Cholecystectomy clips. No dilated small bowel is seen. IMPRESSION: Enteric tube tip is in the proximal stomach. Gaseous distention of the stomach appears slightly improved. Electronically signed by: Natan Marvin MD (03/08/2019 9:02 AM) [id number]
== END 2019-03-08 02:40 | disposition short-term general hospital (02) ==
LOC: ER 18:07
DX: K29.70 Gastritis, unspecified, without bleeding (principal); K56.7 Ileus, unspecified; D72.829 Elevated white blood cell count, unspecified; E11.9 Type 2 diabetes mellitus without complications; N39.0 Urinary tract infection, site not specified; I50.42 Chronic combined systolic (congestive) and diastolic (congestive) heart failure; Z88.1 Allergy status to other antibiotic agents; Z91.041 Radiographic dye allergy status; Z88.2 Allergy status to sulfonamides; Z88.8 Allergy status to other drugs, medicaments and biological substances; Z88.5 Allergy status to narcotic agent
CPT/HCPCS: 36415; 43762; 70450; 74018; 74022; 74176; 80048; 80076; 80307; 81001; 82150; 82550; 83605; 83690; 83735; 83880; 84443; 84484; 85025; 85379; 85610; 85651; 85730; 87040; 87086; 93005; 96365; 96366; 96368; 99285; J3370; J3490; J7050; J7120; Q9966

== ENCOUNTER 2019-05-16 16:20 | Inpatient (IN) | payer MEDICARE, OTHER ==
[~2019-05-16] VITALS: Ht 172.7 cm; Wt 89.4 kg
[~2019-05-16 16:20] MED LIST changes: -MAGN400T3 PO; +MAGN400T5 PO
[2019-05-16] MEDS ORDERED: IV NORMAL SALINE 1,000ML 1,000 ML IV ONE ×2 (16:45)
[2019-05-16] MEDS ORDERED: AZTREONAM 2 GM in IV NORMAL SALINE 100ML 100 ML IV ONE (17:15)
--- NOTE | 2019-05-16 18:20 | EKG ---
[address] [address] Test Date: 2019-05-16 Test Time: 17:39:44 Pat Name: VINAY MARRERO Department: Room: Gender: F Litigation Specialist: OSMANI : 1935 Requested By: MAXIMO POLANCO Order Number: [id number] Reading MD: Antonio Montenegro MD Measurements Intervals [place] Rate: 99 P: 44 [place]: 146 QRS: -53 QRSD: 138 T: 22 QT: 382 QTc: 496 Interpretive Statements SINUS RHYTHM RBBB Electronically Signed On 05-23-2019 9:41:28 CDT by Antonio Montenegro MD
--- NOTE | 2019-05-16 18:25 | RAD ---
CT head without contrast PQRS statement: CT scans at this facility use dose reduction including either automated exposure control, iterative reconstructions, and /or weight based radiation dosing via mA and kV modification when appropriate to reduce radiation dose to as low as reasonably achievable. HISTORY: Altered mental status. COMPARISON: CT head March 07, 2019. TECHNIQUE: Noncontrast imaging skull base to vertex was acquired. FINDINGS: No intracranial hemorrhage, mass, hydrocephalus, extra-axial fluid collections or infarction. No acute ischemic change evident. Left maxillary antrostomy, there is also partial opacification mucosal thickening and left ethmoid and maxillary sinuses. Orbits and right mastoid are unremarkable. There is left mastoid fluid which is stable. IMPRESSION: 1. No acute intracranial CT abnormality. 2. Paranasal sinus disease as described above. 3. Left mastoid fluid again demonstrated. AP chest x-ray HISTORY: Altered mental status. COMPARISON: Chest and abdomen x-rays March 07, 2019. FINDINGS: Borderline cardiomegaly is stable. Mediastinal silhouette is unremarkable. No pneumothorax, pulmonary opacities or pleural effusions. Thoracic scoliosis. Old right rib healed fracture deformities are stable. IMPRESSION: No acute process. Stable exam. Electronically signed by: Garry Guerrero MD (05/16/2019 6:22 PM) [facility]
--- NOTE | 2019-05-16 18:31 | PHYS DOC ---
Past History Past Medical History: Anemia, Anxiety, Depression, High Cholesterol, Hypothyroid, Schizophrenia, Other Additional Past Medical Histor: sepsis; cerebrovascular disease Past Medical History Limited due to altered mental status (MAXIMO POLANCO DO) Past Medical History: Dementia, UTI (JENNIFER STONE MD) Past Surgical History: Other Additional Past Surgical Histo: suprapubic cath Past Surgical History Limited due to altered mental status (MAXIMO POLANCO DO) Smoking: Non-smoker Alcohol Use: None Drug Use: None Social History Limited due to altered mental status (MAXIMO POLANCO DO) Adult General Chief Complaint Chief Complaint: ALTERED MENTAL STATUS HPI HPI 84-year-old female presents with report of altered mental status coming from half-way. Patient is nonambulatory at baseline. Patient does have some decreased mentation at baseline but is able to report to her name and where she is. No history of known trauma. Patient does have a history of sepsis secondary to urinary tract infection as patient has a suprapubic catheter. EMS reports patient was febrile. History of present illness limited secondary to altered mental status. (MAXIMO POLANCO DO) Review of Systems Review of Systems Constitutional: Reports fever Neurologic: Reports altered mental status Review of systems limited secondary to altered mental status (MAXIMO POLANCO DO) Current Medications Current Medications Current Medications Medications (Trade) Dose Ordered Sig/Romaine Start Time Stop Time Status Last Admin Dose Admin Aztreonam 2 gm/ Sodium Chloride 100 ml @ 200 mls/hr 1X ONCE 05/16/19 17:15 05/16/19 17:44 DC Linezolid 300 ml @ 300 mls/hr 1X ONCE 05/16/19 17:20 05/16/19 18:19 Sodium Chloride 1,000 ml @ 1,000 mls/hr 1X ONCE 05/16/19 16:45 05/16/19 17:44 DC (MAXIMO POLANCO DO) Allergies Allergies Allergies Coded Allergies Type Severity Reaction Last Updated Verified Cephalexin Monohydrate Allergy Intermediate 05/16/19 Yes Iodinated Contrast Media Allergy Intermediate 05/16/19 Yes Penicillins Allergy Intermediate 05/16/19 Yes Sulfonylureas Allergy Intermediate 05/16/19 Yes amoxicillin Allergy Intermediate 05/16/19 Yes bacitracin zinc Allergy Intermediate 05/16/19 Yes ciprofloxacin HCl Allergy Intermediate 05/16/19 Yes colistimethate sodium Allergy Intermediate 05/16/19 Yes dexamethasone Allergy Intermediate 05/16/19 Yes doxycycline Allergy Intermediate 05/16/19 Yes gramicidin D Allergy Intermediate 05/16/19 Yes iodine Allergy Intermediate 05/16/19 Yes morphine Allergy Intermediate 05/16/19 Yes moxifloxacin HCl Allergy Intermediate 05/16/19 Yes neomycin sulfate Allergy Intermediate 05/16/19 Yes polymyxin B sulfate Allergy Intermediate 05/16/19 Yes pramoxine HCl Allergy Intermediate 05/16/19 Yes silver sulfadiazine Allergy Intermediate 05/16/19 Yes sulfamethoxazole Allergy Intermediate 05/16/19 Yes trimethoprim Allergy Intermediate 05/16/19 Yes vancomycin Allergy Intermediate 05/16/19 Yes (POLANCOMAXIMO BLANTON R DO) Physical Exam Physical Exam Constitutional: Well developed, well nourished, no acute distress, non-toxic appearance HENT: Normocephalic, atraumatic, oropharynx dry Eyes: PERRL, EOMI, conjunctiva normal, no discharge Neck: Normal range of motion, no tenderness, supple Cardiovascular: Heart rate normal, regular rhythm Lungs & Thorax: Bilateral breath sounds diminished at bases, no wheezing Abdomen: Soft, no tenderness Skin: Warm, dry, anterior left mayo erythema noted, vesicular rash noted to midline of abdomen with erythematous base Extremities: No tenderness, ROM intact, 2+ edema Neurologic: Alert and oriented to name and place only, BLE strength 3/5, BUE strength 4/5 (POLANCO,MAXIMO R DO) Current Patient Data Vital Signs Vital Signs Date Time Temp Pulse Resp B/P (MAP) Pulse Ox O2 Delivery O2 Flow Rate FiO2 05/16/19 16:26 103.2 93 23 98 Room Air (POLANCO,MAXIMO R DO) EKG EKG @1739 NSR at 99bpm, NO ST elevation, QRS 138ms, QT/QTc 382/496ms, RBBB, baseline artifact noted (POLANCO,MAXIMO R DO) Radiology/Procedures Radiology/Procedures PROCEDURE: CT HEAD WO CONTRAST & AP CXR CT head without contrast PQRS statement: CT scans at this facility use dose reduction including either automated exposure control, iterative reconstructions, and /or weight based radiation dosing via mA and kV modification when appropriate to reduce radiation dose to as low as reasonably achievable. HISTORY: Altered mental status. COMPARISON: CT head March 07, 2019. TECHNIQUE: Noncontrast imaging skull base to vertex was acquired. FINDINGS: No intracranial hemorrhage, mass, hydrocephalus, extra-axial fluid collections or infarction. No acute ischemic change evident. Left maxillary antrostomy, there is also partial opacification mucosal thickening and left ethmoid and maxillary sinuses. Orbits and right mastoid are unremarkable. There is left mastoid fluid which is stable. IMPRESSION: 1. No acute intracranial CT abnormality. 2. Paranasal sinus disease as described above. 3. Left mastoid fluid again demonstrated. AP chest x-ray HISTORY: Altered mental status. COMPARISON: Chest and abdomen x-rays March 07, 2019. FINDINGS: Borderline cardiomegaly is stable. Mediastinal silhouette is unremarkable. No pneumothorax, pulmonary opacities or pleural effusions. Thoracic scoliosis. Old right rib healed fracture deformities are stable. IMPRESSION: No acute process. Stable exam. Electronically signed by: Galdino Guerrero MD (05/16/2019 6:22 PM) [facility] DICTATED AND SIGNED BY: GALDINO GUERRERO MD DATE: 05/16/191821 (MAXIMO POLANCO DO) Course & Med Decision Making Course & Med Decision Making Pertinent Labs and Imaging studies reviewed. (See chart for details) Patient with baseline decreased mentation and who is not and laboratory at baseline presents from half-way with report of increased altered mental status. Patient noted to be significantly febrile. Concern for sepsis. SIRS criteria met with HR > 90bpm, RR > 20, and fever > 100.3F. Patient with nidus of infection with suprapubic catheter. Sepsis protocol initiated. Fever addressed. IV fluid sepsis bolusing ordered based on ideal weight (patient BMI > 30). Labs pending. Suprapubic catheter replaced. CT head without acute process. Chest x- ray clear. EKG stable. Sign out given to Dr. Stone for further evaluation and final disposition. (MAXIMO POLANCO DO) Course & Med Decision Making Discussed presentation, testing and tx. plan with Dr. Tucker- Will admit tohis service for further eval. and tx. SIRS and sepsis evaluation. Impression- 1. Mental status change 2. Urinary tract infection 3. Sepsis/SIRS 4. Leukocytosis 18.1 5. Elevated lactate 2.8 6. Diabetes-glucose 128 7. DNR-no intubation, shocks or compressions- will accept meds (JENNIFER STONE MD) Dragon Disclaimer Dragon Disclaimer This electronic medical record was generated, in whole or in part, using a voice recognition dictation system. (POLANCO,MAXIMO R DO) Departure Departure: Impression: Primary Impression: Altered mental status Additional Impression: Fever Disposition: 01 HOME/RESIDENCE PRIOR TO ADM Condition: STABLE Referrals: DARCIE TUCKER MD (PCP) Sepsis Assessment Date and Time of Assessment Date: May 16, 2019 Time: 18:38 (POLANCO,MAXIMO R DO) Fluid Challenge: Is the fluid challenge complet: No IBW Target Volume Used: Yes BMI > 30: Yes (POLANCO,MAXIMO R DO) Vital Signs Vital Signs Vital Signs Date Time Temp Pulse Resp B/P (MAP) Pulse Ox O2 Delivery O2 Flow Rate FiO2 05/16/19 16:26 103.2 93 23 98 Room Air Temperature Source: Oral (POLANCO,MAXIMO R DO) Respirations Respiratory Effort: Normal, Non-Labored Respiratory Pattern: Normal (POLANCO,MAXIMO R DO) Cardiovascular Pulse Rhythm: Regular Heart: Nml rate, reg. rhythm (POLANCO,MAXIMO R DO) Lung Sounds Breath Sounds: Diminished (at bases) (POLANCO,MAXIMO R DO) Capillary Refill Capillary Refill: Rt Hand < 3 seconds (POLANCO,MAXIMO R DO) Peripheral Pulse Pulse Location: Radial Pulse Strength: Normal (2+) Pulse Assessment Method: Palpation (POLANCO,MAXIMO R DO) Integumentary Skin: Warm, Dry Skin Moisture: Dry Skin Turgor: Decreased Skin Color: warm, dry, edema, erythema Fingernail Color: WNL (POLANCO,MAXIMO R DO) Problem Qualifiers Primary Impression: Altered mental status Altered mental status type: unspecified Qualified Codes: R41.82 - Altered mental status, unspecified Additional Impression: Fever Fever type: unspecified Qualified Codes: R50.9 - Fever, unspecified POLANCO,MAXIMO R DO May 16, 2019 18:31 JENNIFER STONE MD May 17, 2019 06:37
[2019-05-16] MEDS ORDERED: ACETAMINOPHEN 650 MG SUPP.RECT. PR ONE (18:45)
[2019-05-16 18:54] LABS: BASO # 0.2 x10^3/uL (0.0-0.2); BASO % 1 % (0-3); EOS # 0.1 x10^3/uL (0.0-0.7); EOS % 0 % (0-3); HEMATOCRIT 37.7 % (36.0-47.0); LYMPH % 5 % (24-48); MEAN CORPUSCULAR HEMOGLOBIN 27 pg (25-35); MEAN CORPUSCULAR HGB CONC 32 g/dL (31-37); MEAN CORPUSCULAR VOLUME 85 fL (79-100); MONO # 0.4 x10^3/uL (0.0-1.1); MONO % 2 % (0-9); NEUT # 16.5 x10^3uL (1.8-7.7); NEUT % 91 % (31-73); PLATELET COUNT 205 x10^3/uL (140-400); RED BLOOD COUNT 4.42 x10^6/uL (3.50-5.40); RED CELL DISTRIBUTION WIDTH 15.4 % (11.5-14.5); WHITE BLOOD COUNT 18.1 x10^3/uL (4.0-11.0)
[2019-05-16 19:22] LABS: MAGNESIUM 1.8 mg/dL (1.8-2.4)
[2019-05-16] MEDS ORDERED: IV RINGERS SOLUTION,LACTATED 1,000 ML IV ONE (19:45)
[2019-05-16] MEDS ORDERED: ACETAMINOPHEN 325 MG TABLET PO PRN (19:45)
[2019-05-16] MEDS ORDERED: ONDANSETRON PF 4 MG/2 ML VIAL. IV PRN (19:45)
[2019-05-16] MEDS: IPRATRPIUM/ALBUTEROL 0.5/2.5MG 3 ML NEBU. NEB SCH (20:00)
[2019-05-16 20:01] LABS: ALBUMIN 3.3 g/dL (3.4-5.0); ALBUMIN/GLOBULIN RATIO 0.9 (1.0-1.7); CALCIUM 8.8 mg/dL (8.5-10.1); CREATININE 0.8 mg/dL (0.6-1.0); GFR 68.7; TOTAL BILIRUBIN 0.5 mg/dL (0.2-1.0); TOTAL PROTEIN 6.8 g/dL (6.4-8.2)
[2019-05-16 20:12] LABS: BILIRUBIN,URINE NEG (NEG); CLARITY,URINE CLOUDY; COLOR,URINE YELLOW; GLUCOSE,URINE NEG (NEG); NITRITE,URINE NEG (NEG); UROBILINOGEN,URINE 1 mg/dL (0.2 mg/dL); WBC,URINE >40 /HPF (0-4)
[2019-05-16 20:13] LABS: BACTERIA,URINE FEW /HPF (0-FEW)
[2019-05-16 21:54] LABS: % BANDS 2 % (0-9); % EOS 1 % (0-5); % LYMPHS 4 % (24-48); % MONOS 1 % (0-10); % SEGS 92 % (35-66)
[2019-05-16 21:55] LABS: % BASOS 0 % (0-3); ANISOCYTOSIS PRESENT; PLT ESTIMATE ADEQUATE (ADEQUATE); TOXIC VACUOLATION PRESENT
[2019-05-16 22:46] VITALS: BP 109/66
[2019-05-17] MEDS: AZTREONAM 1 GM in IV NORMAL SALINE 50ML 50 ML IV SCH ×5 (00:25→23:46)
[2019-05-17] MEDS ORDERED: CLON0.1T PO (01:49)
[2019-05-17] MEDS ORDERED: FENT1PAT19 TD (01:49)
[2019-05-17] MEDS ORDERED: DIPH25CA58 PO (01:49)
[2019-05-17] MEDS ORDERED: UBID100T5 PO (01:49)
[2019-05-17] MEDS ORDERED: HYOS0.1264 PO (01:49)
[2019-05-17] MEDS ORDERED: ACID1TAB13 PO (01:49)
[2019-05-17] MEDS ORDERED: SODI88SP5 NS (01:49)
[2019-05-17] MEDS ORDERED: MULT-312 PO (01:49)
[2019-05-17] MEDS ORDERED: NITR0.4T22 SL (01:49)
[2019-05-17] MEDS ORDERED: ASCO500T3 PO (01:56)
[2019-05-17] MEDS ORDERED: TROS20TA2 PO (01:56)
[2019-05-17] MEDS: IPRATRPIUM/ALBUTEROL 0.5/2.5MG 3 ML NEBU. NEB SCH ×2 (05:52→16:00)
[2019-05-17 06:05] VITALS: BP 117/70
[2019-05-17 07:02] LABS: BASO % 0 % (0-3); EOS % 0 % (0-3); HEMATOCRIT 35.8 % (36.0-47.0); HEMOGLOBIN 11.4 g/dL (12.0-15.5); LYMPH # 2.2 x10^3/uL (1.0-4.8); LYMPH % 14 % (24-48); MEAN CORPUSCULAR HEMOGLOBIN 27 pg (25-35); MEAN CORPUSCULAR HGB CONC 32 g/dL (31-37); MEAN CORPUSCULAR VOLUME 86 fL (79-100); MONO # 0.6 x10^3/uL (0.0-1.1); MONO % 4 % (0-9); NEUT # 13.1 x10^3uL (1.8-7.7); NEUT % 82 % (31-73); PLATELET COUNT 164 x10^3/uL (140-400); RED BLOOD COUNT 4.18 x10^6/uL (3.50-5.40); RED CELL DISTRIBUTION WIDTH 15.6 % (11.5-14.5)
[2019-05-17 07:43] LABS: ALBUMIN 2.4 g/dL (3.4-5.0); ALBUMIN/GLOBULIN RATIO 0.6 (1.0-1.7); CALCIUM 8.3 mg/dL (8.5-10.1); CREATININE 0.8 mg/dL (0.6-1.0); GFR 68.7; POTASSIUM 3.7 mmol/L (3.5-5.1); TOTAL BILIRUBIN 0.3 mg/dL (0.2-1.0); TOTAL PROTEIN 6.2 g/dL (6.4-8.2)
[2019-05-17] MEDS ORDERED: diphenhydrAMINE HCL 25 MG CAPSULE PO PRN (08:00)
[2019-05-17] MEDS ORDERED: NYSTATIN TOPICAL POWDER 15GM BOTTLE. TP PRN (08:00)
[2019-05-17] MEDS ORDERED: ACETAMINOPHEN 325 MG TABLET PO PRN (08:00)
[2019-05-17] MEDS ORDERED: NITROGLYCERIN SUBLINGUAL 0.4 MG BOTTLE OF 25. SL PRN (08:00)
[2019-05-17] MEDS ORDERED: LOPERAMIDE 2 MG CAPSULE PO PRN (08:00)
[2019-05-17] MEDS ORDERED: BISACODYL 10 MG SUPP.RECT RC PRN (08:00)
[2019-05-17] MEDS ORDERED: MAGNESIUM HYDROXIDE 2,400 MG/30 ML ORAL.SUSP. PO PRN (08:00)
[2019-05-17] MEDS ORDERED: ONDANSETRON ODT 4 MG TAB.RAPDIS PO PRN (08:45)
[2019-05-17] MEDS ORDERED: CALCIUM CARBONATE 500 MG TAB.CHEW PO PRN (08:45)
[2019-05-17] MEDS ORDERED: CRANBERRY EXTRACT PO SCH (09:00)
[2019-05-17] MEDS ORDERED: FLU VAX QS 2019-20 (36MOS+)/PF 0.5 ML SYRINGE. VAX IM ONE (09:00)
[2019-05-17] MEDS ORDERED: ACIDOPHILUS PO SCH (09:00)
[2019-05-17] MEDS ORDERED: TROSPIUM CHLORIDE 20 MG PO SCH (09:00)
[2019-05-17] MEDS ORDERED: NON FORMULARY ITEM (Amino Acids/Protein Hydrolys (Pro-Stat Liquid) 30 ML) PO SCH (09:00)
[2019-05-17] MEDS ORDERED: BULGARICUS PO SCH (09:00)
[2019-05-17] MEDS: LACTOBACILLUS RHAMNOSUS GG 1 CAPSULE. PO SCH ×2 (09:01→20:07)
[2019-05-17] MEDS: CHOLECALCIFEROL (VITAMIN D3) 1,000 UNIT TABLET PO SCH (09:01)
[2019-05-17] MEDS: FAMOTIDINE 20 MG TABLET PO SCH (09:01)
[2019-05-17] MEDS: cloNIDine HCL 0.1 MG TABLET PO SCH ×2 (09:02→20:07)
[2019-05-17] MEDS: DOCUSATE SODIUM 100 MG CAPSULE PO SCH (09:02)
[2019-05-17] MEDS: ASCORBIC ACID 500 MG TABLET PO SCH (09:02)
[2019-05-17] MEDS: MAGNESIUM OXIDE 400 MG TABLET PO SCH (09:02)
[2019-05-17] MEDS: APIXABAN 2.5 MG TABLET PO SCH ×2 (09:02→20:07)
[2019-05-17] MEDS: amLODIPine BESYLATE 5 MG TABLET PO SCH (09:02)
[2019-05-17] MEDS: ACETAMINOPHEN 325 MG TABLET PO SCH ×2 (09:03→20:06)
[2019-05-17] MEDS: MULTIVITAMIN with MINERAL TABLET. PO SCH (09:10)
[2019-05-17] MEDS: POLYETHYLENE GLYCOL 3350 17 GM PACKET. PO SCH (09:10)
[2019-05-17] MEDS: METOPROLOL TART IMMED RELEASE 25 MG TABLET PO SCH ×2 (09:10→20:08)
[2019-05-17] MEDS ORDERED: HYOSCYAMINE 0.125 MG TAB.RAPDIS PO PRN (10:00)
[2019-05-17] MEDS: CYANOCOBALAMIN (VITAMIN B-12) 250 MCG TABLET PO SCH (10:42)
[2019-05-17] MEDS: UBIDECARENONE 50 MG CAPSULE. PO SCH (10:43)
[2019-05-17] MEDS: fentaNYL 75MCG/HR 1 PATCH PATCH TD SCH (10:44)
[2019-05-17] MEDS: SODIUM CHLORIDE 0.65% NASAL SPRAY 45ML BOTTLE. NS SCH ×2 (10:44→20:05)
[2019-05-17 11:36] VITALS: BP 120/74
[2019-05-17] MEDS: OXYBUTYNIN CHLORIDE 5 MG TABLET PO SCH ×2 (14:05→20:09)
[2019-05-17 16:09] VITALS: BP 136/74
[2019-05-17 19:10] VITALS: BP 129/60
[2019-05-17] MEDS: ATORVASTATIN CALCIUM 20 MG TABLET PO SCH (20:08)
[2019-05-17 23:51] VITALS: BP 139/78
[2019-05-18] MEDS: LEVOTHYROXINE 75 MCG TABLET PO SCH (05:23)
[2019-05-18] MEDS: AZTREONAM 1 GM in IV NORMAL SALINE 50ML 50 ML IV SCH ×3 (05:23→18:14)
[2019-05-18 05:25] VITALS: BP 136/82
[2019-05-18] MEDS: POLYETHYLENE GLYCOL 3350 17 GM PACKET. PO SCH (07:50)
[2019-05-18] MEDS: ASCORBIC ACID 500 MG TABLET PO SCH (07:51)
[2019-05-18] MEDS: FAMOTIDINE 20 MG TABLET PO SCH (07:51)
[2019-05-18] MEDS: MAGNESIUM OXIDE 400 MG TABLET PO SCH (07:51)
[2019-05-18] MEDS: UBIDECARENONE 50 MG CAPSULE. PO SCH (07:52)
[2019-05-18] MEDS: amLODIPine BESYLATE 5 MG TABLET PO SCH (07:52)
[2019-05-18] MEDS: ACETAMINOPHEN 325 MG TABLET PO SCH ×2 (07:52→21:45)
[2019-05-18] MEDS: OXYBUTYNIN CHLORIDE 5 MG TABLET PO SCH ×3 (07:52→21:46)
[2019-05-18] MEDS: LACTOBACILLUS RHAMNOSUS GG 1 CAPSULE. PO SCH ×2 (07:52→21:46)
[2019-05-18] MEDS: APIXABAN 2.5 MG TABLET PO SCH ×2 (07:52→21:45)
[2019-05-18] MEDS: DOCUSATE SODIUM 100 MG CAPSULE PO SCH (07:52)
[2019-05-18] MEDS: MULTIVITAMIN with MINERAL TABLET. PO SCH (07:52)
[2019-05-18] MEDS: CHOLECALCIFEROL (VITAMIN D3) 1,000 UNIT TABLET PO SCH (07:53)
[2019-05-18] MEDS: METOPROLOL TART IMMED RELEASE 25 MG TABLET PO SCH ×2 (07:53→21:46)
[2019-05-18] MEDS: cloNIDine HCL 0.1 MG TABLET PO SCH ×2 (07:53→21:46)
[2019-05-18] MEDS: CYANOCOBALAMIN (VITAMIN B-12) 250 MCG TABLET PO SCH (07:57)
[2019-05-18] MEDS: SODIUM CHLORIDE 0.65% NASAL SPRAY 45ML BOTTLE. NS SCH ×2 (08:08→21:45)
[2019-05-18 09:51] LABS: BASO % 0 % (0-3); EOS # 0.3 x10^3/uL (0.0-0.7); EOS % 4 % (0-3); HEMOGLOBIN 11.4 g/dL (12.0-15.5); LYMPH # 1.1 x10^3/uL (1.0-4.8); LYMPH % 17 % (24-48); MEAN CORPUSCULAR HEMOGLOBIN 28 pg (25-35); MEAN CORPUSCULAR HGB CONC 33 g/dL (31-37); MEAN CORPUSCULAR VOLUME 85 fL (79-100); MONO # 0.3 x10^3/uL (0.0-1.1); MONO % 5 % (0-9); NEUT # 4.8 x10^3uL (1.8-7.7); NEUT % 74 % (31-73); PLATELET COUNT 194 x10^3/uL (140-400); RED BLOOD COUNT 4.13 x10^6/uL (3.50-5.40); RED CELL DISTRIBUTION WIDTH 15.7 % (11.5-14.5); WHITE BLOOD COUNT 6.6 x10^3/uL (4.0-11.0)
[2019-05-18 09:55] LABS: CALCIUM 8.7 mg/dL (8.5-10.1); CREATININE 0.7 mg/dL (0.6-1.0); GFR 80.1; POTASSIUM 3.8 mmol/L (3.5-5.1)
[2019-05-18 10:16] VITALS: BP 126/72
--- NOTE | 2019-05-18 13:46 | RAD ---
Examination: VENOUS LOWER EXTREMITY RIGHT History: Right lower extremity erythema and swelling COMPARISON/CORRELATION: None FINDINGS: Right lower extremity duplex venous ultrasound exam was performed. Grayscale, color Doppler, and spectral Doppler imaging was performed. Compression and augmentation was performed. The right common femoral vein, superficial femoral vein, popliteal vein, and greater saphenous vein are normal with no evidence of deep venous thrombus. Normal compressibility and augmentation is evident. Visualization of the right calf venous structures is very limited beyond the popliteal vein. IMPRESSION: Normal, limited right lower extremity duplex ultrasound exam. Electronically signed by: Lawrence Lund MD (05/18/2019 1:43 PM) [facility]
--- NOTE | 2019-05-18 13:51 | HP ---
ADMIT DATE: 05/16/2019 HISTORY OF PRESENT ILLNESS: An 84-year-old female came in from the [facility]. The patient apparently had some altered mental status. She has decreased mentation and she was unable to repeat her name or any other information. She was noted to have a severe urinary tract infection and was brought into the hospital for further evaluation. She does have a suprapubic catheter lending herself to obviously more of these infections. PAST MEDICAL HISTORY: The patient's past medical history includes nose surgery, history of atrial fibrillation, angina on chronic Eliquis, congestive heart failure, hypercholesterolemia, COPD, pneumonia, and abdominal surgery. 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 Influenza and pneumococcal are up-to-date. Pressure ulcers. FAMILY HISTORY: No pertinent family history. ALLERGIES: KEFLEX, IODINATED CONTRAST MEDIA, PENICILLIN, SULFUR, PENICILLIN, BACITRACIN, ZINC, and CIPRO. MEDICATIONS: Synthroid 75, Lipitor 20, Ditropan 5, fentanyl 75, Anaspaz 0.125, Coenzyme Q10, MiraLax, Pepcid, Lopressor, ____, vitamin B12, Catapres pill 0.1 b.i.d., vitamin D, ascorbic acid, Norvasc, Eliquis 2.5 b.i.d., Norvasc 5 mg b.i.d., Zofran, calcium carbonate, nystatin, Imodium 2 mg, Benadryl 50, Dulcolax 10. SOCIAL HISTORY: No smoking, alcohol, or drug use. Lives in a [facility]. REVIEW OF SYSTEMS: The patient is a little bit more alert now. Denies any chest pain, shortness of breath, abdominal pain. Denies any melena, hematochezia, or hematemesis, and neurologically baseline for her. PHYSICAL EXAMINATION: GENERAL: The patient on exam is a white female, well-developed, well-nourished, no obvious distress at the present time. VITAL SIGNS: Blood pressure 120/70, respiratory rate 20, pulse 80, afebrile. Her initial temperature when she came in through the Emergency Room was 103.2 with a pulse of upwards of 100. HEENT: The patient's head was atraumatic, normocephalic. Eyes: PERRLA without jaundice. Mouth and throat were normal. NECK: Supple, without JVD, carotid bruits. No thyroid megaly. LUNGS: Diminished throughout, poor movement of air. CARDIOVASCULAR: Irregularly irregular rhythm. ABDOMEN: Soft, protuberant, nontender. EXTREMITIES: No clubbing, cyanosis. Trace edema noted. Positive pulses noted. Possible Homans' in the right leg. NEUROLOGIC: The patient is neurologically baseline. She is answering questions. Speech was fluent and spontaneous. Moving all extremities fairly well, although limited in her strength. She has generalized weakness throughout. IMPRESSION: Sepsis. White count was 18,000. Vital signs as noted above. Urinary tract infection, organism unspecified. Severe protein malnutrition, hyperglycemia, chronic atrial fibrillation, urinary tract infection, change in mental status, marked scoliosis, and history of stroke. PLAN: The patient will be admitted, placed on IV antibiotic therapy, and make further evaluation on her as indicated. DARCIE TUCKER MD DR: ZANE/jody JOB#: [id number] / [id number]
[2019-05-18 15:30] VITALS: BP 148/77
--- NOTE | 2019-05-18 17:22 | RAD ---
V/Q LUNG SCAN CLINICAL INDICATIONS: Right leg swelling. Altered mental status. COMPARISON: December 18, 2015 lung scan. Chest x-ray performed on May 16, 2019. TECHNIQUE: After inhalation of 9.5 mCi of Xenon 133 gas, anterior and posterior planar images of the lung graves were performed in the single breath and equilibrium and washout phases. After IV infusion of 5.5 mCi of technetium 99m MAA, multiplanar images of both lung graves were performed. FINDINGS: No ventilatory defect is evident. Mild retention of radiotracer activity is seen within the posterior right upper right lung field due to air trapping. Normal physiologic perfusion is seen. IMPRESSION: Normal perfusion. Electronically signed by: Cipriano Webber MD (05/18/2019 5:18 PM) [place] [id number]
[2019-05-18 19:45] VITALS: BP 127/77
[2019-05-18] MEDS: ATORVASTATIN CALCIUM 20 MG TABLET PO SCH (21:45)
[2019-05-19] MEDS: AZTREONAM 1 GM in IV NORMAL SALINE 50ML 50 ML IV SCH ×5 (00:10→23:57)
[2019-05-19 00:43] VITALS: BP 158/81
[2019-05-19] MEDS: LEVOTHYROXINE 75 MCG TABLET PO SCH (05:56)
[2019-05-19 06:03] VITALS: BP 148/80
[2019-05-19 06:31] LABS: BASO % 1 % (0-3); EOS # 0.3 x10^3/uL (0.0-0.7); EOS % 5 % (0-3); HEMATOCRIT 35.5 % (36.0-47.0); HEMOGLOBIN 11.6 g/dL (12.0-15.5); LYMPH # 1.4 x10^3/uL (1.0-4.8); LYMPH % 25 % (24-48); MEAN CORPUSCULAR HEMOGLOBIN 28 pg (25-35); MEAN CORPUSCULAR HGB CONC 33 g/dL (31-37); MEAN CORPUSCULAR VOLUME 85 fL (79-100); MONO # 0.3 x10^3/uL (0.0-1.1); MONO % 6 % (0-9); NEUT # 3.3 x10^3uL (1.8-7.7); NEUT % 63 % (31-73); PLATELET COUNT 199 x10^3/uL (140-400); RED BLOOD COUNT 4.19 x10^6/uL (3.50-5.40); RED CELL DISTRIBUTION WIDTH 15.3 % (11.5-14.5); WHITE BLOOD COUNT 5.3 x10^3/uL (4.0-11.0)
[2019-05-19] MEDS: FAMOTIDINE 20 MG TABLET PO SCH (07:47)
[2019-05-19] MEDS: CHOLECALCIFEROL (VITAMIN D3) 1,000 UNIT TABLET PO SCH (07:47)
[2019-05-19] MEDS: DOCUSATE SODIUM 100 MG CAPSULE PO SCH (07:47)
[2019-05-19] MEDS: ACETAMINOPHEN 325 MG TABLET PO SCH ×2 (07:47→20:31)
[2019-05-19] MEDS: LACTOBACILLUS RHAMNOSUS GG 1 CAPSULE. PO SCH ×2 (07:48→20:31)
[2019-05-19] MEDS: MAGNESIUM OXIDE 400 MG TABLET PO SCH (07:48)
[2019-05-19] MEDS: OXYBUTYNIN CHLORIDE 5 MG TABLET PO SCH ×3 (07:48→20:31)
[2019-05-19] MEDS: APIXABAN 2.5 MG TABLET PO SCH ×2 (07:48→20:31)
[2019-05-19] MEDS: amLODIPine BESYLATE 5 MG TABLET PO SCH (07:48)
[2019-05-19] MEDS: cloNIDine HCL 0.1 MG TABLET PO SCH ×2 (07:49→20:31)
[2019-05-19] MEDS: METOPROLOL TART IMMED RELEASE 25 MG TABLET PO SCH ×2 (07:49→21:00)
[2019-05-19] MEDS: SODIUM CHLORIDE 0.65% NASAL SPRAY 45ML BOTTLE. NS SCH ×2 (07:49→21:00)
[2019-05-19] MEDS: ASCORBIC ACID 500 MG TABLET PO SCH (07:49)
[2019-05-19] MEDS: MULTIVITAMIN with MINERAL TABLET. PO SCH (07:49)
[2019-05-19] MEDS: POLYETHYLENE GLYCOL 3350 17 GM PACKET. PO SCH (07:51)
[2019-05-19] MEDS: UBIDECARENONE 50 MG CAPSULE. PO SCH (07:52)
[2019-05-19] MEDS: CYANOCOBALAMIN (VITAMIN B-12) 250 MCG TABLET PO SCH (07:52)
[2019-05-19] MEDS: METOCLOPRAMIDE 10 MG TABLET PO SCH ×3 (11:08→20:28)
[2019-05-19 11:35] VITALS: BP 137/75
[2019-05-19 14:25] VITALS: BP 160/76
[2019-05-19 19:51] VITALS: BP 163/95
[2019-05-19] MEDS: ATORVASTATIN CALCIUM 20 MG TABLET PO SCH (20:31)
[2019-05-19] MEDS ORDERED: METHYL SALICYLATE/MENTHOL TOPICAL OINTMENT 57GM TUBE. TP PRN (21:45)
[2019-05-20 00:03] VITALS: BP 161/95
[2019-05-20] MEDS: AZTREONAM 1 GM in IV NORMAL SALINE 50ML 50 ML IV SCH (06:01)
[2019-05-20] MEDS: LEVOTHYROXINE 75 MCG TABLET PO SCH (06:01)
[2019-05-20 06:05] VITALS: BP 132/77
[2019-05-20] MEDS: POLYETHYLENE GLYCOL 3350 17 GM PACKET. PO SCH (07:43)
[2019-05-20] MEDS: CHOLECALCIFEROL (VITAMIN D3) 1,000 UNIT TABLET PO SCH (07:44)
[2019-05-20] MEDS: OXYBUTYNIN CHLORIDE 5 MG TABLET PO SCH ×2 (07:44→15:02)
[2019-05-20] MEDS: METOPROLOL TART IMMED RELEASE 25 MG TABLET PO SCH (07:44)
[2019-05-20] MEDS: DOCUSATE SODIUM 100 MG CAPSULE PO SCH (07:44)
[2019-05-20] MEDS: FAMOTIDINE 20 MG TABLET PO SCH (07:45)
[2019-05-20] MEDS: LACTOBACILLUS RHAMNOSUS GG 1 CAPSULE. PO SCH (07:45)
[2019-05-20] MEDS: APIXABAN 2.5 MG TABLET PO SCH (07:45)
[2019-05-20] MEDS: ACETAMINOPHEN 325 MG TABLET PO SCH (07:45)
[2019-05-20] MEDS: MAGNESIUM OXIDE 400 MG TABLET PO SCH (07:45)
[2019-05-20] MEDS: MULTIVITAMIN with MINERAL TABLET. PO SCH (07:45)
[2019-05-20] MEDS: cloNIDine HCL 0.1 MG TABLET PO SCH (07:45)
[2019-05-20] MEDS: ASCORBIC ACID 500 MG TABLET PO SCH (07:45)
[2019-05-20] MEDS: METOCLOPRAMIDE 10 MG TABLET PO SCH ×2 (07:45→11:51)
[2019-05-20] MEDS: amLODIPine BESYLATE 5 MG TABLET PO SCH (07:46)
[2019-05-20] MEDS: UBIDECARENONE 50 MG CAPSULE. PO SCH (07:46)
[2019-05-20] MEDS: CYANOCOBALAMIN (VITAMIN B-12) 250 MCG TABLET PO SCH (07:47)
[2019-05-20] MEDS: SODIUM CHLORIDE 0.65% NASAL SPRAY 45ML BOTTLE. NS SCH (07:55)
[2019-05-20] MEDS: fentaNYL 75MCG/HR 1 PATCH PATCH TD SCH (10:02)
--- NOTE | 2019-05-20 10:05 | PN ---
DATE: SUBJECTIVE: An 84-year-old patient in with sepsis. The patient is resting fairly comfortably. Final urine culture still pending. She has 100,000 gram-negative rods in her urine. PHYSICAL EXAMINATION: VITAL SIGNS: Blood pressure 137/75, respiratory rate 18, pulse 62, afebrile. GENERAL: The patient has been having some nausea, vomiting just after eating; we will put her on some Reglan and see if that does not help her with her gastroparesis. Otherwise, the patient is alert and oriented to baseline. LUNGS: Diminished, but clear. CARDIOVASCULAR: Irregularly irregular. ABDOMEN: Soft, protuberant, nontender. EXTREMITIES: No clubbing, cyanosis. Trace edema. The patient's white count has come down from 18 down to 5, hemoglobin 11.6. Chemistries were also indicative of severe protein malnutrition as well as hyperglycemia. The patient otherwise continues to make good progress, overall well. Her V/Q scan was basically negative with normal perfusion. IMPRESSION: Sepsis, urinary tract infection, gram-negative organisms; hyperglycemia; severe protein malnutrition. PLAN: As above. Continue to monitor the patient, accordingly make further evaluation. Continue IV antibiotic therapy. Wait for final culture report. DARCIE TUCKER MD DR: ZANE/jody JOB#: [id number] / [id number]
[2019-05-20 10:30] VITALS: BP 148/84
[2019-05-20] MEDS ORDERED: CEFDINIR 300 MG CAPSULE PO SCH (11:45)
--- NOTE | 2019-05-20 11:52 | DISCH ---
DISCHARGE ORDERS CONDITION AT DISCHARGE: Stable Code Status: DNR/DNI SNF STAY <30 DAYS: Yes HOSPICE: No HOSPICE EVALUATE & TREAT: No ADMIT TO LTAC: No POST DISCHARGE ORDERS: ACTIVITY ORDERS: Activity as tolerated WEIGHT BEARING STATUS: No restrictions DIET AFTER DISCHARGE: Regular TREATMENT/EQUIPMENT ORDERS: ADAPTIVE EQUIPMENT NEEDED: None DISCHARGE MEDICATIONS: Home Meds Reported Medications Ascorbic Acid (ASCORBIC ACID) 500 Mg Tablet, 500 MG PO DAILY for supplement, TAB 05/17/19 Trospium Chloride (TROSPIUM CHLORIDE) 20 Mg Tablet, 20 MG PO BID for neuromuscular dysfunction , TAB 05/17/19 Nitroglycerin (NITROGLYCERIN SubLingual) 0.4 Mg Tab.subl, 0.4 MG SL PRN Q5MIN PRN for CHEST PAIN, BOTTLE 05/17/19 Sodium Chloride (NASAL MOISTURIZING) 88 Ml Lusk, 1 SPR NS BID for Congestion 05/17/19 Multivitamin With Minerals (ONE DAILY PLUS MINERALS) 1 Each Tablet, 1 EACH PO DAILY for supplement, TAB 05/17/19 Hyoscyamine Sulfate (LEVSIN) 0.125 Mg Tablet, 0.125 MG PO PRN Q4HRS PRN for pain/cramps, TAB max 1.5/24hrs 05/17/19 Acidophilus/Bulgaricus (FLORANEX TABLET) 1 Each Tablet, 1 EACH PO BID for Supplement, TAB 05/17/19 Fentanyl (FENTANYL 75mcg/hr) 1 Each Patch.td72, 1 PATCH TD Q72H for pain, PATCH 05/17/19 Ubidecarenone (COENZYME Q10) 100 Mg Tablet, 100 MG PO DAILY for Supplement, TAB 05/17/19 Clonidine Hcl (CLONIDINE HCL) 0.1 Mg Tablet, 0.1 MG PO BID for HTN, TAB 05/17/19 Diphenhydramine Hcl (BENADRYL) 25 Mg Capsule, 50 MG PO PRN Q6HRS PRN for ITCHING, CAP 05/17/19 Amino Acids/Protein Hydrolys (PRO-STAT LIQUID) 30 Ml Liquid.pkt, 30 ML PO BID for WOUND HEALING 10/22/18 Atorvastatin Calcium (ATORVASTATIN CALCIUM) 20 Mg Tablet, 20 MG PO QHS for FOR CHOLESTEROL 10/22/18 Amlodipine Besylate (AMLODIPINE BESYLATE) 5 Mg Tablet, 1 TAB PO DAILY for HYPERTENSION 10/22/18 Famotidine (FAMOTIDINE) 40 Mg Tablet, 40 MG PO DAILY for GERD 08/17/18 Cranberry Extract (CRANBERRY) 425 Mg Capsule, 850 MG PO BID for UTI Prevention 08/17/18 Levothyroxine Sodium (LEVOTHYROXINE SODIUM) 75 Mcg Tablet, 75 MCG PO DAILY06 for THYROID SUPPLEMENT 08/17/18 Metoprolol Tartrate (METOPROLOL TARTRATE) 25 Mg Tablet, 25 MG PO BID for FOR HYPERTENSION 08/17/18 Apixaban (ELIQUIS) 5 Mg Tablet, 2.5 MG PO BID for AFib 08/17/18 Bisacodyl (BISACODYL) 10 Mg Supp.rect, 10 MG RC PRN DAILY PRN for CONSTIPATION 08/17/18 Acetaminophen (TYLENOL) 325 Mg Tablet, 650 MG PO PRN Q8HRS PRN for PAIN 08/17/18 Ondansetron Hcl (ONDANSETRON HCL) 4 Mg Tablet, 1 TAB PO PRN Q6HRS PRN for NAUSE A/VOMITING 12/17/15 Magnesium Hydroxide (MILK OF MAGNESIA) 400 Mg/5 Ml Oral.susp, 30 ML PO DAILY PRN for CONSTIPATION 12/17/15 Loperamide Hcl (LOPERAMIDE) 2 Mg Capsule, 2 MG PO PRN Q6HRS PRN for DIARRHEA 12/17/15 Calcium Carbonate/Mag Hydrox (ANTACID CHEWABLE TABLET) 1 Each Tab.chew, 1 EACH PO PRN Q6HRS PRN for HEARTBURN / GAS 12/17/15 Nystatin (NYSTATIN) 15 Gm Powder, 1 RASHAD TP PRN Q4HRS PRN for RASH 12/17/15 Cholecalciferol (Vitamin D3) (VITAMIN D) 1,000 Unit Tablet, 1000 UNIT PO DAILY for Supplement 12/29/14 Cyanocobalamin (Vitamin B-12) (VITAMIN B-12) 250 Mcg Tablet, 250 MCG PO DAILY for Supplement 12/29/14 Polyethylene Glycol 3350 (POLYETHYLENE GLYCOL 3350) 2,500 Gm Powder, 17 GM MC DAILY for Constipation 12/29/14 Magnesium Oxide (MAGNESIUM OXIDE) 400 Mg Tablet, 400 MG PO DAILY for Supplement 12/29/14 Docusate Sodium (DOCUSATE SODIUM) 100 Mg Capsule, 200 MG PO DAILY for Stool Softner 12/29/14 Acetaminophen (TYLENOL) 325 Mg Tablet, 650 MG PO BID for Pain 5/29/15 Discontinued Reported Medications Sodium Chloride (SALINE NASAL SPRAY) 30 Ml Lusk, 1 SPRAY NS PRN Q1HR PRN for Dry Nose LAST DOSE GIVEN: DATE: TIME: NEXT DOSE DUE: DATE: TIME: 08/17/18 Fentanyl (FENTANYL 100mcg/hr) 1 Each Patch.td72, 1 PATCH TP QODAY for Pain LAST DOSE GIVEN: DATE: TIME: NEXT DOSE DUE: DATE: TIME: 12/17/15 Multivitamin (ONE DAILY) 1 Each Tablet, 1 EACH PO DAILY for Supplement LAST DOSE GIVEN: DATE: TIME: NEXT DOSE DUE: DATE: TIME: 12/29/14 Acidophilus/Bulgaricus (FLORANEX TABLET) 1 Each Tablet, 1 TAB PO BID for Supplement LAST DOSE GIVEN: DATE: TIME: NEXT DOSE DUE: DATE: TIME: 12/29/14 Ubidecarenone (COENZYME Q10) 100 Mg Capsule, 100 MG PO DAILY for Supplement LAST DOSE GIVEN: DATE: TIME: NEXT DOSE DUE: DATE: TIME: 12/29/14 DARCIE TUCKER MD May 20, 2019 11:52
--- NOTE | 2019-05-24 15:33 | DS ---
DATE OF DISCHARGE: 05/20/2019 HOSPITAL COURSE: The patient came in through the Emergency Room. The patient was basically septic with a urinary tract infection. The patient had some altered mental status consistent with her septic encephalopathy. The patient received IV antibiotic therapy. The final urine cultures demonstrated a Proteus mirabilis organism that was resistant to most oral antibiotics. She was placed on a second or third generation oral cephalosporin when she was discharged. She was transferred out to [facility] here. Her white count came down from 18,000 down to 5000. Hemoglobin remained basically in range for her. The patient also had moderate protein malnutrition and slightly elevated on her blood sugars. The patient made good progress during the rest of her hospitalization, came back to her normal mental status at baseline and transferred out there. IMPRESSION: Sepsis, encephalopathy secondary to sepsis, urinary tract infection with Proteus mirabilis, type 2 diabetes, has a chronic urostomy, [id number] protein malnutrition. The patient was kept on SCD hose as well here. The patient's head CT was unremarkable, possibly some acute on chronic sinus infection and chronic left mastoiditis. The patient was discharged to the nursing facility, on antibiotics, type 2 diabetic diet, and she will follow up accordingly with the physicians they are at the ____ [facility]. DARCIE TUCKER MD DR: ZANE/jody JOB#: [id number] / [id number]
== END 2019-05-20 16:09 | disposition home or self-care (01) | DRG 871 ==
LOC: ER 16:20 → 1 SOUTH 19:30
PROVIDERS: ADMIT Family Medicine; ATTEND Family Medicine
DX: A41.9 Sepsis, unspecified organism (principal); E43 Unspecified severe protein-calorie malnutrition; N39.0 Urinary tract infection, site not specified; I48.20 Chronic atrial fibrillation, unspecified; I50.9 Heart failure, unspecified; M41.9 Scoliosis, unspecified; E03.9 Hypothyroidism, unspecified; E78.00 Pure hypercholesterolemia, unspecified; F03.90 Unspecified dementia, unspecified severity, without behavioral disturbance, psychotic disturbance, mood disturbance, and anxiety; F20.9 Schizophrenia, unspecified; J44.9 Chronic obstructive pulmonary disease, unspecified; K21.9 Gastro-esophageal reflux disease without esophagitis; E11.65 Type 2 diabetes mellitus with hyperglycemia; Z79.01 Long term (current) use of anticoagulants; F32.9 Major depressive disorder, single episode, unspecified; F41.9 Anxiety disorder, unspecified; M19.90 Unspecified osteoarthritis, unspecified site; Z86.73 Personal history of transient ischemic attack (TIA), and cerebral infarction without residual deficits; Z90.710 Acquired absence of both cervix and uterus; E66.9 Obesity, unspecified; Z68.30 Body mass index [BMI] 30.0-30.9, adult; Z88.8 Allergy status to other drugs, medicaments and biological substances; Z88.1 Allergy status to other antibiotic agents; Z91.041 Radiographic dye allergy status; Z91.010 Allergy to peanuts; Z66 Do not resuscitate
CPT/HCPCS: 36415; 51705; 70450; 71045; 78582; 80048; 80053; 81001; 82140; 82553; 83605; 83735; 83880; 84443; 84484; 85007; 85025; 85379; 85610; 85730; 87040; 87077; 87086; 87186; 87205; 90471; 90686; 93005; 93971; 96361; 96365; 96367; 96374; A9540; A9558; J2020; J3490; J7120; J7620; J8597; Q0163; 99285-25; J7030

== ENCOUNTER 2019-07-14 13:26 | Inpatient (IN) | payer MEDICARE, OTHER ==
[~2019-07-14] VITALS: Ht 174 cm; Wt 97.2 kg
[~2019-07-14 13:26] MED LIST changes: +ASCO500T3 PO; +CLON0.1T PO; +DIPH25CA58 PO; +FENT1PAT19 TD; +HYOS0.1264 PO; +MULT-312 PO; +NITR0.4T22 SL; +ONDA-84 PO; -ONDA4TAB11 PO; +SODI88SP5 NS; +TROS20TA2 PO; +UBID100T5 PO
--- NOTE | 2019-07-14 14:04 | EKG ---
[address] [address] Test Date: 2019-07-14 Test Time: 13:54:52 Pat Name: VINAY MARRERO Department: Room: Gender: F Human Services Assistant: : 1935 Requested By: NATASHA DAMON Order Number: [id number] Reading MD: Measurements Intervals Roberts Rate: 101 P: 36 WY: 150 QRS: -66 QRSD: 120 T: -5 QT: 356 QTc: 468 Interpretive Statements SINUS TACHYCARDIA ABNORMAL LEFT AXIS DEVIATION R-S TRANSITION ZONE IN V LEADS DISPLACED TO THE LEFT LEFT ANTERIOR FASCICULAR BLOCK INCOMPLETE RIGHT BUNDLE BRANCH BLOCK RVH WITH REPOLARIZATION ABNORMALITY QRS(T) CONTOUR ABNORMALITY CONSIDER INFERIOR MYOCARDIAL DAMAGE ABNORMAL ECG RI6.01 No previous ECG available for comparison
[2019-07-14 14:18] LABS: BASO % 0 % (0-3); EOS % 0 % (0-3); HEMATOCRIT 40.7 % (36.0-47.0); HEMOGLOBIN 13.1 g/dL (12.0-15.5); LYMPH # 0.9 x10^3/uL (1.0-4.8); LYMPH % 9 % (24-48); MEAN CORPUSCULAR HEMOGLOBIN 27 pg (25-35); MEAN CORPUSCULAR HGB CONC 32 g/dL (31-37); MEAN CORPUSCULAR VOLUME 85 fL (79-100); MONO # 0.3 x10^3/uL (0.0-1.1); MONO % 3 % (0-9); NEUT # 8.9 x10^3uL (1.8-7.7); NEUT % 87 % (31-73); PLATELET COUNT 245 x10^3/uL (140-400); RED BLOOD COUNT 4.78 x10^6/uL (3.50-5.40); RED CELL DISTRIBUTION WIDTH 15.1 % (11.5-14.5); WHITE BLOOD COUNT 10.2 x10^3/uL (4.0-11.0)
[2019-07-14 14:26] LABS: ALBUMIN 3.2 g/dL (3.4-5.0); ALBUMIN/GLOBULIN RATIO 0.8 (1.0-1.7); CALCIUM 8.9 mg/dL (8.5-10.1); CREATININE 0.7 mg/dL (0.6-1.0); GFR 80.1; POTASSIUM 3.8 mmol/L (3.5-5.1); TOTAL BILIRUBIN 0.3 mg/dL (0.2-1.0); TOTAL PROTEIN 7.4 g/dL (6.4-8.2)
[2019-07-14 14:27] LABS: COLOR,URINE YELLOW
[2019-07-14 14:28] LABS: AMORPHOUS SEDIMENT,UR PRESENT /HPF; BACTERIA,URINE MOD /HPF (0-FEW); BILIRUBIN,URINE NEG (NEG); CLARITY,URINE CLOUDY; GLUCOSE,URINE NEG (NEG); NITRITE,URINE NEG (NEG); SQUAMOUS EPITHELIAL CELL,UR OCC /LPF; UROBILINOGEN,URINE 1 mg/dL (0.2 mg/dL); WBC,URINE TNTC /HPF (0-4)
--- NOTE | 2019-07-14 14:34 | RAD ---
CHEST AP ONLY Clinical Indication: Shortness of breath Comparison: 05/16/2019 portable chest x-ray exam. Findings: Frontal view chest was obtained. The cardiomediastinal silhouette is somewhat enlarged but this may in part be technique related. Lungs are clear. There is no pneumothorax. No pleural effusion is appreciated. No acute bone abnormality. Significant scoliosis of the thoracic spine. IMPRESSION: No infiltrate. Electronically signed by: Lawrence Lund MD (07/14/2019 2:31 PM) [facility]
--- NOTE | 2019-07-14 14:55 | PHYS DOC ---
Past History Past Medical History: Dementia, UTI Additional Past Medical Histor: sepsis; cerebrovascular disease Past Surgical History: Other Additional Past Surgical Histo: suprapubic cath Smoking: Non-smoker Alcohol Use: None Drug Use: None General Pediatric Assessment Chief Complaint Generalized weakness, nausea, fatigue History of Present Illness Patient is a 84-year-old custodial patient with history of suprapubic catheter and frequent urinary tract infections cancer generalized weakness, malaise, nausea 3 days. No vomiting, fever or sweats. Patient does report bilateral flank pain. Denies headache, cough, shortness of breath, chest pain, increased leg pain or swelling. No other acute symptoms or complaints.[] Review of Systems Review symptoms as per history of present illness. All other review symptoms are negative. All other systems were reviewed and found to be within normal limits, except as documented in this note. Allergies Allergies Coded Allergies Type Severity Reaction Last Updated Verified Cephalexin Monohydrate Allergy Intermediate 05/16/19 Yes Iodinated Contrast Media Allergy Intermediate 05/16/19 Yes Penicillins Allergy Intermediate 05/16/19 Yes Sulfonylureas Allergy Intermediate 05/16/19 Yes amoxicillin Allergy Intermediate 05/16/19 Yes bacitracin zinc Allergy Intermediate 05/16/19 Yes ciprofloxacin HCl Allergy Intermediate 05/16/19 Yes colistimethate sodium Allergy Intermediate 05/16/19 Yes dexamethasone Allergy Intermediate 05/16/19 Yes doxycycline Allergy Intermediate 05/16/19 Yes gramicidin D Allergy Intermediate 05/16/19 Yes iodine Allergy Intermediate 05/16/19 Yes morphine Allergy Intermediate 05/16/19 Yes moxifloxacin HCl Allergy Intermediate 05/16/19 Yes neomycin sulfate Allergy Intermediate 05/16/19 Yes polymyxin B sulfate Allergy Intermediate 05/16/19 Yes pramoxine HCl Allergy Intermediate 05/16/19 Yes silver sulfadiazine Allergy Intermediate 05/16/19 Yes sulfamethoxazole Allergy Intermediate 05/16/19 Yes trimethoprim Allergy Intermediate 05/16/19 Yes vancomycin Allergy Intermediate 05/16/19 Yes Physical Exam Constitutional: Well developed, well nourished, somnolent, generally weak and fatigued appearing.. HENT: Normocephalic, atraumatic, bilateral external ears normal, oropharynx moist, nose normal. Eyes: PERLL, EOMI, conjunctiva normal, no discharge. Neck: Normal range of motion. Cardiovascular: Normal heart rate, normal rhythm. Thorax and Lungs: Normal breath sounds, no respiratory distress, no wheezing. Abdomen: Bowel sounds normal, soft, no tenderness. Skin: Warm, dry, no erythema, no rash. Back: No tenderness. Extremeties: Intact distal pulses, no tenderness, no edema. Musculoskeletal: Good ROM in all major joints, no tenderness. Neurologic: Alert and oriented X 2, normal motor function, normal sensory function, no focal deficits noted. Psychologic: Affect normal, judgement normal, mood normal. Radiology/Procedures [Chest x-ray: No acute cardiopulmonary disease per radiology report] Current Patient Data Laboratory Tests Test 07/14/19 13:59 07/14/19 14:07 White Blood Count 10.2 x10^3/uL (4.0-11.0) Red Blood Count 4.78 x10^6/uL (3.50-5.40) Hemoglobin 13.1 g/dL (12.0-15.5) Hematocrit 40.7 % (36.0-47.0) Mean Corpuscular Volume 85 fL (79-100) Mean Corpuscular Hemoglobin 27 pg (25-35) Mean Corpuscular Hemoglobin Concent 32 g/dL (31-37) Red Cell Distribution Width 15.1 % (11.5-14.5) H Platelet Count 245 x10^3/uL (140-400) Neutrophils (%) (Auto) 87 % (31-73) H Lymphocytes (%) (Auto) 9 % (24-48) L Monocytes (%) (Auto) 3 % (0-9) Eosinophils (%) (Auto) 0 % (0-3) Basophils (%) (Auto) 0 % (0-3) Neutrophils # (Auto) 8.9 x10^3uL (1.8-7.7) H Lymphocytes # (Auto) 0.9 x10^3/uL (1.0-4.8) L Monocytes # (Auto) 0.3 x10^3/uL (0.0-1.1) Eosinophils # (Auto) 0.0 x10^3/uL (0.0-0.7) Basophils # (Auto) 0.0 x10^3/uL (0.0-0.2) Urine Collection Type Unknown Urine Color Yellow Urine Clarity Cloudy Urine pH >8.5 Urine Specific [place] 1.010 Urine Protein >100 mg/dl (NEG-TRACE) Urine Glucose (UA) Neg mg/dL (NEG) Urine Ketones (Stick) 15 mg/dL (NEG) Urine Blood Trace (NEG) Urine Nitrite Neg (NEG) Urine Bilirubin Neg (NEG) Urine Urobilinogen Dipstick 1 mg/dL (0.2 mg/dL) Urine Leukocyte Esterase Large (NEG) Urine RBC 1-2 /HPF (0-2) Urine WBC Tntc /HPF (0-4) Urine Squamous Epithelial Cells Occ /LPF Urine Amorphous Sediment Present /HPF Urine Bacteria Mod /HPF (0-FEW) Sodium Level 141 mmol/L (136-145) Potassium Level 3.8 mmol/L (3.5-5.1) Chloride Level 103 mmol/L (98-107) Carbon Dioxide Level 31 mmol/L (21-32) Anion Gap 7 (6-14) Blood Urea Nitrogen 19 mg/dL (7-20) Creatinine 0.7 mg/dL (0.6-1.0) Estimated GFR (Cockcroft-Gault) 80.1 BUN/Creatinine Ratio 27 (6-20) H Glucose Level 117 mg/dL (70-99) H Calcium Level 8.9 mg/dL (8.5-10.1) Total Bilirubin 0.3 mg/dL (0.2-1.0) Aspartate Amino Transf (AST/SGOT) 18 U/L (15-37) Alanine Aminotransferase (ALT/SGPT) 19 U/L (14-59) Alkaline Phosphatase 122 U/L (46-116) H Troponin I Quantitative < 0.017 ng/mL (0-0.055) Total Protein 7.4 g/dL (6.4-8.2) Albumin 3.2 g/dL (3.4-5.0) L Albumin/Globulin Ratio 0.8 (1.0-1.7) L Lactic Acid Level 0.8 mmol/L (0.4-2.0) Active Scripts Medications Dose Route/Sig Max Daily Dose Days Date Category Dose Instructions Ascorbic Acid 500 Mg Tablet 500 Mg PO DAILY 05/17/19 Reported Trospium Chloride 20 Mg Tablet 20 Mg PO BID 05/17/19 Reported NITROGLYCERIN SubLingual (Nitroglycerin) 0.4 Mg Tab.subl 0.4 Mg SL PRN Q5MIN PRN 05/17/19 Reported Nasal Moisturizing (Sodium Chloride) 88 Ml [place] 1 Spr NS BID 05/17/19 Reported One Daily Plus Minerals (Multivitamin With Minerals) 1 Each Tablet 1 Each PO DAILY 05/17/19 Reported Levsin (Hyoscyamine Sulfate) 0.125 Mg Tablet 0.125 Mg PO PRN Q4HRS PRN 05/17/19 Reported max 1.5/24hrs [place]anex Tablet (Acidophilus/Bulgaricus) 1 Each Tablet 1 Each PO BID 05/17/19 Reported FENTANYL 75mcg/hr (Fentanyl) 1 Each Patch.td72 1 Patch TD Q72H 05/17/19 Reported Coenzyme Q10 (Ubidecarenone) 100 Mg Tablet 100 Mg PO DAILY 05/17/19 Reported Clonidine Hcl 0.1 Mg Tablet 0.1 Mg PO BID 05/17/19 Reported Benadryl (Diphenhydramine Hcl) 25 Mg Capsule 50 Mg PO PRN Q6HRS PRN 05/17/19 Reported Pro-Stat Liquid (Amino Acids/Protein Hydrolys) 30 Ml Liquid.pkt 30 Ml PO BID 10/22/18 Reported Atorvastatin Calcium 20 Mg Tablet 20 Mg PO QHS 10/22/18 Reported Amlodipine Besylate 5 Mg Tablet 1 Tab PO DAILY 10/22/18 Reported Famotidine 40 Mg Tablet 40 Mg PO DAILY 08/17/18 Reported Cranberry (Cranberry Extract) 425 Mg Capsule 850 Mg PO BID 08/17/18 Reported Levothyroxine Sodium 75 Mcg Tablet 75 Mcg PO DAILY06 08/17/18 Reported Metoprolol Tartrate 25 Mg Tablet 25 Mg PO BID 08/17/18 Reported Eliquis (Apixaban) 5 Mg Tablet 2.5 Mg PO BID 08/17/18 Reported Bisacodyl 10 Mg Supp.rect 10 Mg RC PRN DAILY PRN 08/17/18 Reported Tylenol (Acetaminophen) 325 Mg Tablet 650 Mg PO PRN Q8HRS PRN 08/17/18 Reported Ondansetron Hcl 4 Mg Tablet 1 Tab PO PRN Q6HRS PRN 12/17/15 Reported Milk Of Magnesia (Magnesium Hydroxide) 400 Mg/5 Ml Oral.susp 30 Ml PO DAILY PRN 12/17/15 Reported Loperamide (Loperamide Hcl) 2 Mg Capsule 2 Mg PO PRN Q6HRS PRN 12/17/15 Reported Antacid Chewable Tablet (Calcium Carbonate/Mag Hydrox) 1 Each Tab.chew 1 Each PO PRN Q6HRS PRN 12/17/15 Reported Nystatin 15 Gm Powder 1 [place] TP PRN Q4HRS PRN 12/17/15 Reported Vitamin D (Cholecalciferol (Vitamin D3)) 1,000 Unit Tablet 1,000 Unit PO DAILY 12/29/14 Reported Vitamin B-12 (Cyanocobalamin (Vitamin B-12)) 250 Mcg Tablet 250 Mcg PO DAILY 12/29/14 Reported Polyethylene Glycol 3350 2,500 Gm Powder 17 Gm MC DAILY 12/29/14 Reported Magnesium Oxide 400 Mg Tablet 400 Mg PO DAILY 12/29/14 Reported Docusate Sodium 100 Mg Capsule 200 Mg PO DAILY 12/29/14 Reported Tylenol (Acetaminophen) 325 Mg Tablet 650 Mg PO BID 12/29/14 Reported Vital Signs Date Time Temp Pulse Resp B/P (MAP) Pulse Ox O2 Delivery O2 Flow Rate FiO2 07/14/19 13:48 98.1 100 18 92 Room Air Vital Signs Date Time Temp Pulse Resp B/P (MAP) Pulse Ox O2 Delivery O2 Flow Rate FiO2 07/14/19 13:48 98.1 100 18 92 Room Air Vital Signs Date Time Temp Pulse Resp B/P (MAP) Pulse Ox O2 Delivery O2 Flow Rate FiO2 07/14/19 13:48 98.1 100 18 92 Room Air Course & Med Decision Making Pertinent Labs and Imaging studies reviewed. (See chart for details) [Patient with generalized weakness malaise with nausea. Inspected recurrent urinary tract infection with early sepsis. Antibiotic selection reviewed with pharmacy. IV Rocephin given. Dr. Engle to admit.] Departure Departure: Impression: Primary Impression: UTI (urinary tract infection) Additional Impression: Change in mental status Disposition: ADMITTED INPATIENT Admitting Physician: Darcie Engle, Other Condition: STABLE Referrals: DARCIE ENGLE MD (PCP) Problem Qualifiers MARISOLNATASHA VASQUEZ Jul 14, 2019 14:55
[2019-07-14 15:04] LABS: INFLUENZA A PATIENT NEGATIVE (NEGATIVE); INFLUENZA B PATIENT NEGATIVE (NEGATIVE)
[2019-07-14] MEDS ORDERED: IV NORMAL SALINE 100ML 100 ML ONE (16:56)
[2019-07-14] MEDS ORDERED: ONDANSETRON PF 4 MG/2 ML VIAL. IV PRN (17:00)
[2019-07-14] MEDS: IV NORMAL SALINE 1,000ML 1,000 ML IV SCH (17:05)
--- NOTE | 2019-07-14 18:30 | NUR ---
The patient, VINAY MARRERO, 84 y/o, F admitted by DARCIE TUCKER MD, was given written information regarding hospital policies, unit procedures and contact persons. Valuables were checked and logged.
[2019-07-14 18:31] VITALS: BP 124/76
[2019-07-14] MEDS ORDERED: LACT1CAP6 PO (19:20)
[2019-07-14] MEDS ORDERED: NITROGLYCERIN SUBLINGUAL 0.4 MG BOTTLE OF 25. SL PRN (19:45)
[2019-07-14] MEDS ORDERED: BISACODYL 10 MG SUPP.RECT RC PRN (19:45)
[2019-07-14] MEDS ORDERED: diphenhydrAMINE HCL 25 MG CAPSULE PO PRN (19:45)
[2019-07-14] MEDS ORDERED: ACETAMINOPHEN 325 MG TABLET PO PRN (19:45)
[2019-07-14] MEDS ORDERED: NYSTATIN TOPICAL POWDER 15GM BOTTLE. TP PRN (19:45)
[2019-07-14] MEDS ORDERED: MAGNESIUM HYDROXIDE 2,400 MG/30 ML ORAL.SUSP. PO PRN (19:45)
[2019-07-14] MEDS ORDERED: LOPERAMIDE 2 MG CAPSULE PO PRN (19:45)
[2019-07-14] MEDS ORDERED: CALCIUM CARBONATE 500 MG TAB.CHEW PO PRN (20:30)
[2019-07-14] MEDS ORDERED: HYOSCYAMINE 0.125 MG TAB.RAPDIS PO PRN (20:30)
[2019-07-14] MEDS ORDERED: ONDANSETRON ODT 4 MG TAB.RAPDIS PO PRN (20:30)
[2019-07-14] MEDS ORDERED: NON FORMULARY ITEM (Amino Acids/Protein Hydrolys (Pro-Stat Liquid) 30 ML) PO SCH (21:00)
[2019-07-14] MEDS: SODIUM CHLORIDE 0.65% NASAL SPRAY 45ML BOTTLE. NS SCH (21:00)
[2019-07-14] MEDS: LACTOBACILLUS RHAMNOSUS GG 1 CAPSULE. PO SCH (21:07)
[2019-07-14] MEDS: ATORVASTATIN CALCIUM 20 MG TABLET PO SCH (21:07)
[2019-07-14] MEDS: ACETAMINOPHEN 325 MG TABLET PO SCH (21:07)
[2019-07-14] MEDS: cloNIDine HCL 0.1 MG TABLET PO SCH (21:08)
[2019-07-14] MEDS: METOPROLOL TART IMMED RELEASE 25 MG TABLET PO SCH (21:08)
[2019-07-14] MEDS: APIXABAN 2.5 MG TABLET PO SCH (21:10)
[2019-07-14] MEDS: OXYBUTYNIN CHLORIDE 5 MG TABLET PO SCH (21:10)
[2019-07-14 23:33] VITALS: BP 151/66
[2019-07-15] MEDS: IV NORMAL SALINE 1,000ML 1,000 ML IV SCH (03:04)
[2019-07-15] MEDS: LEVOTHYROXINE 75 MCG TABLET PO SCH (05:34)
[2019-07-15 06:15] VITALS: BP 102/63
[2019-07-15] MEDS: SODIUM CHLORIDE 0.65% NASAL SPRAY 45ML BOTTLE. NS SCH ×2 (08:23→21:00)
[2019-07-15] MEDS: MAGNESIUM OXIDE 400 MG TABLET PO SCH (08:24)
[2019-07-15] MEDS: LACTOBACILLUS RHAMNOSUS GG 1 CAPSULE. PO SCH ×2 (08:24→21:39)
[2019-07-15] MEDS: METOPROLOL TART IMMED RELEASE 25 MG TABLET PO SCH ×2 (08:28→21:00)
[2019-07-15] MEDS: MULTIVITAMIN with MINERAL TABLET. PO SCH (08:30)
[2019-07-15] MEDS: CHOLECALCIFEROL (VITAMIN D3) 1,000 UNIT TABLET PO SCH (08:30)
[2019-07-15] MEDS: ACETAMINOPHEN 325 MG TABLET PO SCH ×2 (08:30→21:38)
[2019-07-15] MEDS: amLODIPine BESYLATE 5 MG TABLET PO SCH (08:30)
[2019-07-15] MEDS: OXYBUTYNIN CHLORIDE 5 MG TABLET PO SCH ×3 (08:30→21:39)
[2019-07-15] MEDS: DOCUSATE SODIUM 100 MG CAPSULE PO SCH (08:31)
[2019-07-15] MEDS: ASCORBIC ACID 500 MG TABLET PO SCH (08:31)
[2019-07-15] MEDS: FAMOTIDINE 20 MG TABLET PO SCH (08:31)
[2019-07-15] MEDS: POLYETHYLENE GLYCOL 3350 17 GM PACKET. PO SCH (08:31)
[2019-07-15] MEDS: APIXABAN 2.5 MG TABLET PO SCH ×2 (08:31→21:39)
[2019-07-15] MEDS: cloNIDine HCL 0.1 MG TABLET PO SCH ×2 (08:31→21:00)
[2019-07-15] MEDS: CYANOCOBALAMIN (VITAMIN B-12) 250 MCG TABLET PO SCH (08:32)
[2019-07-15 10:34] VITALS: BP 118/64
--- NOTE | 2019-07-15 11:10 | HP ---
ADMIT DATE: 07/14/2019 HISTORY OF PRESENT ILLNESS: This is an 84-year-old female came in from the half-way with change in mental status. The patient notes she has a urostomy, has frequent urinary tract infection and has become generalized malaise, nausea for the last 3 days, unable to keep her medications down. The patient has had a change in mental status and was noted to have greater than 50 white blood cells per high powered field and as a result of this, the patient was admitted to the hospital for IV antibiotic therapy. The patient basically had sepsis with encephalopathy going on there due to the change in mental status and the too numerous to count white blood cells in her urine. PAST MEDICAL HISTORY: The patient's history of course is significant for her urostomy, most importantly history of chronic atrial fibrillation, angina, congestive heart failure, coronary artery disease, chronic Eliquis, hypercholesterolemia, COPD, pneumonia, abdominal surgery, hysterectomy, obesity, urinary tract infection, urinary retention, hemiplegia, arthritis, back pain, endocrine disorders, hypothyroidism, psychiatric problems, history of schizophrenia under good control with depression and anxiety. MEDICAL SYMPTOMS: She has had a history of anemia. She has had previous histories of sepsis, clotting problems on chronic Eliquis as noted. Her influenza and pneumococcal vaccinations are up-to-date. FAMILY HISTORY: Apparently is unremarkable. ALLERGIES: The list of her allergies is significant. Allergies include, but not limited to KEFLEX, IODINE CONTRAST MEDIA, PENICILLIN, SULFONYLUREAS, AMOXICILLIN, BACITRACIN, ZINC, CIPROFLOXACIN and there are others, but having trouble finding the actual list of her other allergies at the present time, but they are significant. MEDICATIONS: Include that of Benadryl, Levsin 0.125, Eliquis 5, Lipitor 20, clonidine 0.1, nitroglycerin, metoprolol 25 b.i.d., amlodipine 5 daily, fentanyl, sodium chloride, calcium carbonate, magnesium, loperamide, bisacodyl, magnesium citrate, Pepcid 40, levothyroxine, nystatin, vitamin B12, ascorbic acid, multivitamins, amino acids, cranberry extract, and Coenzyme Q10, and polyethylene glycol. SOCIAL HISTORY: No smoking, alcohol or drug use. The patient is a DNR. REVIEW OF SYSTEMS: The patient outside of change in mental status. Denies chest pain, shortness of breath. Denies headaches, visual change, blurred vision, double vision, trouble swallowing. Does have nausea, but no vomiting. Denies any melena, hematochezia, or hematemesis. Does have problems with urination. Neurologically intact. PHYSICAL EXAMINATION: GENERAL: This is a pleasant white female looking stated age. VITAL SIGNS: Blood pressure 124/76, respiratory rate 20, pulse 100. Presently afebrile. HEENT: The patient's head was atraumatic, normocephalic. Eyes: PERRLA without jaundice. The mouth and throat were normal except for poor dentition. NECK: Supple, without JVD, carotid bruits or thyromegaly. LUNGS: Diminished throughout, but basically clear. CARDIOVASCULAR: Irregularly irregular rhythm. ABDOMEN: Protuberant, soft, nontender. Positive bowel sounds. EXTREMITIES: No clubbing, cyanosis, nor edema. NEUROLOGIC: The patient was alert and oriented x 3 at the present time, although apparently in the Emergency Room, was confused, disoriented and like. LABORATORY DATA: The patient's white count itself was normal at about 10, hemoglobin 13. The patient did have a slight elevated sugar 117, albumin low at 3.2, lactic acid stable, but the patient had TNTC for her urine. Influenza negative. IMPRESSION: Encephalopathy secondary to urinary tract infection, organism unspecified, urostomy catheterization, hypertension, sepsis. PLAN: As above. Continue on IV antibiotic therapy. We have asked the pharmacy to help us with IV antibiotic selection since the patient has so many other sensitivities. We need and consulted with their expertise. DARCIE TUCKER MD DR: ZANE/jody JOB#: [id number] / [id number]
[2019-07-15 15:09] VITALS: BP 98/60
--- NOTE | 2019-07-15 16:13 | NUR ---
wound care patient seen per wound care consult. see wound assessment. 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 patient incontinent of bowel at this time, patient cleaned and applied Calazime cream at this time. patient needs to be turning every 2 hours. patient turned to the left side at this time. patient assessed from head to toe and no other wounds noted at this time. patient has off-loading boots on at this time. ALVARO Yo present during assessment. wound care will continue to f/u for changes.
[2019-07-15] MEDS ORDERED: BISACODYL 10 MG SUPP.RECT PR PRN (19:00)
[2019-07-15 19:09] VITALS: BP 96/61
[2019-07-15] MEDS: ATORVASTATIN CALCIUM 20 MG TABLET PO SCH (21:39)
[2019-07-15 23:07] VITALS: BP 100/66
--- NOTE | 2019-07-16 01:40 | NUR ---
Pt drowsy and resting most of the evening and through the night. She helps minimally to turn her and ensure cleanliness every 2 hours and to monitor coccyx. Pt pleasant and calm. She is looking forward to drinking coffee. Denies pain. Will continue to monitor.
[2019-07-16] MEDS: LEVOTHYROXINE 75 MCG TABLET PO SCH (05:17)
[2019-07-16 05:35] VITALS: BP 109/65
[2019-07-16] MEDS: CYANOCOBALAMIN (VITAMIN B-12) 250 MCG TABLET PO SCH (08:18)
[2019-07-16] MEDS: ASCORBIC ACID 500 MG TABLET PO SCH (08:18)
[2019-07-16] MEDS: ACETAMINOPHEN 325 MG TABLET PO SCH ×2 (08:19→21:34)
[2019-07-16] MEDS: cloNIDine HCL 0.1 MG TABLET PO SCH ×2 (08:19→21:35)
[2019-07-16] MEDS: MAGNESIUM OXIDE 400 MG TABLET PO SCH (08:19)
[2019-07-16] MEDS: METOPROLOL TART IMMED RELEASE 25 MG TABLET PO SCH ×2 (08:19→21:34)
[2019-07-16] MEDS: LACTOBACILLUS RHAMNOSUS GG 1 CAPSULE. PO SCH ×2 (08:19→21:00)
[2019-07-16] MEDS: OXYBUTYNIN CHLORIDE 5 MG TABLET PO SCH ×3 (08:19→21:35)
[2019-07-16] MEDS: APIXABAN 2.5 MG TABLET PO SCH ×2 (08:19→21:34)
[2019-07-16] MEDS: CHOLECALCIFEROL (VITAMIN D3) 1,000 UNIT TABLET PO SCH (08:19)
[2019-07-16] MEDS: SODIUM CHLORIDE 0.65% NASAL SPRAY 45ML BOTTLE. NS SCH ×2 (08:20→21:00)
[2019-07-16] MEDS: MULTIVITAMIN with MINERAL TABLET. PO SCH (08:20)
[2019-07-16] MEDS: amLODIPine BESYLATE 5 MG TABLET PO SCH (08:20)
[2019-07-16] MEDS: POLYETHYLENE GLYCOL 3350 17 GM PACKET. PO SCH (08:20)
[2019-07-16] MEDS: DOCUSATE SODIUM 100 MG CAPSULE PO SCH (08:20)
[2019-07-16] MEDS: FAMOTIDINE 20 MG TABLET PO SCH (08:20)
[2019-07-16] MEDS ORDERED: fentaNYL 75MCG/HR 1 PATCH PATCH TD SCH (09:00)
[2019-07-16 11:52] VITALS: BP 102/61
[2019-07-16 15:09] VITALS: BP 101/62
[2019-07-16] MEDS: IV NORMAL SALINE 1,000ML 1,000 ML IV SCH (16:45)
--- NOTE | 2019-07-16 18:36 | NUR ---
NSG NOTE; CONFUSION NOTED THIS ERIKA PT HAD BEEN ALERT AND ORIENTED X4 TODAY BUT WAS CONFUSED THIS ERIKA TELLING US TO "CLOSE THE SCREEN DOOR IN THE KITCHEN"
[2019-07-16 19:38] VITALS: BP 118/57
[2019-07-16] MEDS: ATORVASTATIN CALCIUM 20 MG TABLET PO SCH (21:34)
[2019-07-16 22:44] VITALS: BP 126/73
[2019-07-17] MEDS: LEVOTHYROXINE 75 MCG TABLET PO SCH (06:00)
[2019-07-17 06:04] VITALS: BP 134/79
[2019-07-17] MEDS: IV NORMAL SALINE 1,000ML 1,000 ML IV SCH ×2 (06:05→19:25)
--- NOTE | 2019-07-17 06:41 | NUR ---
Pt slept all night. TQ2, perineal care, pad changes with BMs. Pt quickly moves in and out of delusions and hallucinations. Pt calling out for certain people by name, asking questions about moving beds, shutting various doors that she pointed to in the room, and complaining of people stealing things from her at another facility and worried about it happening here, asked when she could leave, when she could go to the hospital, when she could get her IV and unusually irritable during pad changes. Pt redirected and reoriented. Will continue to monitor.
[2019-07-17] MEDS: POLYETHYLENE GLYCOL 3350 17 GM PACKET. PO SCH (09:00)
[2019-07-17] MEDS: DOCUSATE SODIUM 100 MG CAPSULE PO SCH (09:14)
[2019-07-17] MEDS: ACETAMINOPHEN 325 MG TABLET PO SCH ×2 (09:14→20:40)
[2019-07-17] MEDS: METOPROLOL TART IMMED RELEASE 25 MG TABLET PO SCH ×2 (09:14→20:41)
[2019-07-17] MEDS: FAMOTIDINE 20 MG TABLET PO SCH (09:14)
[2019-07-17] MEDS: APIXABAN 2.5 MG TABLET PO SCH ×2 (09:14→20:40)
[2019-07-17] MEDS: OXYBUTYNIN CHLORIDE 5 MG TABLET PO SCH ×3 (09:14→20:40)
[2019-07-17] MEDS: CHOLECALCIFEROL (VITAMIN D3) 1,000 UNIT TABLET PO SCH (09:14)
[2019-07-17] MEDS: MULTIVITAMIN with MINERAL TABLET. PO SCH (09:14)
[2019-07-17] MEDS: LACTOBACILLUS RHAMNOSUS GG 1 CAPSULE. PO SCH ×2 (09:15→20:40)
[2019-07-17] MEDS: CYANOCOBALAMIN (VITAMIN B-12) 250 MCG TABLET PO SCH (09:15)
[2019-07-17] MEDS: cloNIDine HCL 0.1 MG TABLET PO SCH ×2 (09:15→20:41)
[2019-07-17] MEDS: amLODIPine BESYLATE 5 MG TABLET PO SCH (09:15)
[2019-07-17] MEDS: ASCORBIC ACID 500 MG TABLET PO SCH (09:15)
[2019-07-17] MEDS: MAGNESIUM OXIDE 400 MG TABLET PO SCH (09:16)
[2019-07-17] MEDS: SODIUM CHLORIDE 0.65% NASAL SPRAY 45ML BOTTLE. NS SCH ×2 (09:16→20:40)
[2019-07-17] MEDS ORDERED: BISACODYL 10 MG SUPP.RECT PR ONE (09:30)
[2019-07-17 11:00] VITALS: BP 169/78
[2019-07-17 15:00] VITALS: BP 139/77
[2019-07-17 19:46] VITALS: BP 158/83
[2019-07-17] MEDS: ATORVASTATIN CALCIUM 20 MG TABLET PO SCH (20:40)
[2019-07-17 23:00] VITALS: BP 158/82
[2019-07-18] MEDS: ONDANSETRON PF 4 MG/2 ML VIAL. IVP PRN ×2 (00:20→06:01)
[2019-07-18 05:28] VITALS: BP 154/90
[2019-07-18] MEDS: LEVOTHYROXINE 75 MCG TABLET PO SCH (05:43)
--- NOTE | 2019-07-18 05:49 | NUR ---
pt was pleasant through the night, but confused also. making comments about her bed not being the correct bed, making sure the door was locked, wanted to go to her own bed around the corner, while laying down she insisted she wasnt laying down, she wanted someone to stick a pin in her so she could throw up. pt only slept a few hours.
[2019-07-18 06:20] LABS: BASO % 0 % (0-3); EOS # 0.2 x10^3/uL (0.0-0.7); EOS % 2 % (0-3); HEMATOCRIT 38.8 % (36.0-47.0); HEMOGLOBIN 12.7 g/dL (12.0-15.5); LYMPH # 1.4 x10^3/uL (1.0-4.8); LYMPH % 18 % (24-48); MEAN CORPUSCULAR HEMOGLOBIN 28 pg (25-35); MEAN CORPUSCULAR HGB CONC 33 g/dL (31-37); MEAN CORPUSCULAR VOLUME 85 fL (79-100); MONO # 0.3 x10^3/uL (0.0-1.1); MONO % 4 % (0-9); NEUT # 5.8 x10^3uL (1.8-7.7); NEUT % 76 % (31-73); PLATELET COUNT 188 x10^3/uL (140-400); RED BLOOD COUNT 4.58 x10^6/uL (3.50-5.40); RED CELL DISTRIBUTION WIDTH 14.5 % (11.5-14.5); WHITE BLOOD COUNT 7.7 x10^3/uL (4.0-11.0)
[2019-07-18 06:23] LABS: CALCIUM 8.8 mg/dL (8.5-10.1); CREATININE 0.7 mg/dL (0.6-1.0); GFR 80.1; POTASSIUM 3.8 mmol/L (3.5-5.1)
[2019-07-18] MEDS: IV NORMAL SALINE 1,000ML 1,000 ML IV SCH (08:45)
[2019-07-18] MEDS: MAGNESIUM OXIDE 400 MG TABLET PO SCH (09:00)
[2019-07-18] MEDS: SODIUM CHLORIDE 0.65% NASAL SPRAY 45ML BOTTLE. NS SCH (09:00)
[2019-07-18] MEDS: LACTOBACILLUS RHAMNOSUS GG 1 CAPSULE. PO SCH (09:27)
[2019-07-18] MEDS: MULTIVITAMIN with MINERAL TABLET. PO SCH (09:28)
[2019-07-18] MEDS: cloNIDine HCL 0.1 MG TABLET PO SCH (09:28)
[2019-07-18] MEDS: FAMOTIDINE 20 MG TABLET PO SCH (09:28)
[2019-07-18] MEDS: APIXABAN 2.5 MG TABLET PO SCH (09:28)
[2019-07-18] MEDS: OXYBUTYNIN CHLORIDE 5 MG TABLET PO SCH (09:28)
[2019-07-18] MEDS: DOCUSATE SODIUM 100 MG CAPSULE PO SCH (09:28)
[2019-07-18] MEDS: ACETAMINOPHEN 325 MG TABLET PO SCH (09:29)
[2019-07-18] MEDS: METOPROLOL TART IMMED RELEASE 25 MG TABLET PO SCH (09:29)
[2019-07-18] MEDS: CHOLECALCIFEROL (VITAMIN D3) 1,000 UNIT TABLET PO SCH (09:30)
[2019-07-18] MEDS: ASCORBIC ACID 500 MG TABLET PO SCH (09:30)
[2019-07-18] MEDS: amLODIPine BESYLATE 5 MG TABLET PO SCH (09:30)
[2019-07-18] MEDS: CYANOCOBALAMIN (VITAMIN B-12) 250 MCG TABLET PO SCH (09:30)
[2019-07-18] MEDS: POLYETHYLENE GLYCOL 3350 17 GM PACKET. PO SCH (09:31)
--- NOTE | 2019-07-18 09:59 | PN ---
DATE: SUBJECTIVE: The patient in with sepsis and pyelonephritis. The patient's urostomy been changed for a while, apparently got infected there. OBJECTIVE: VITAL SIGNS: Blood pressure 102/61, respiratory rate 18, pulse 60, afebrile. GENERAL: The patient is alert and oriented. LUNGS: Diminished, but clear. CARDIOVASCULAR: Stable. ABDOMEN: Protuberant, soft. LABORATORY DATA: Urine looking clean; however, we are still waiting for the culture to come back on her urine and make further evaluation on her as indicated. IMPRESSION: The patient is on Eliquis for her blood thinning capabilities. In any case, the patient is doing better and will continue with IV antibiotic therapy until we get the culture report back. Encephalopathy secondary to urinary tract infection, organism. Sepsis, urostomy catheterization contaminated, hypertension. PLAN: As above. Continue on medication until further evaluation is made available. DARCIE TUCKER MD DR: ZANE/jody JOB#: [id number] / [id number]
--- NOTE | 2019-07-18 10:00 | PN ---
DATE: SUBJECTIVE: An 84-year-old female in with pyelonephritis. The patient is resting fairly comfortably, making fairly good progress. Cultures have not been returned yet. OBJECTIVE: VITAL SIGNS: Blood pressure 130/80, respiratory rate 20, pulse 60, afebrile. HEENT: The patient's head was atraumatic, normocephalic. Eyes: PERRLA without jaundice. Mouth and throat were normal. NECK: Supple without JVD or thyromegaly. LUNGS: Diminished throughout, but clear. CARDIOVASCULAR: Regular sinus rhythm, S1 and S2, without murmur, rub, thrill, or extra heart sound. ABDOMEN: Soft, nontender, no rebound or guarding. Positive bowel sounds. No hepatosplenomegaly was noted. EXTREMITIES: No clubbing, cyanosis or edema. NEUROLOGIC: The patient was alert and oriented x 3. LABORATORY DATA: The patient's urine culture shows gram-negative, but we are still waiting for the final culture report. The patient otherwise is continued to be monitored carefully. We will make further evaluation on her as indicated per those results. IMPRESSION: Pyelonephritis. PLAN: Continue on IV antibiotic therapy and make further evaluation on her as indicated. DARCIE TUCKER MD DR: ZANE/jody JOB#: [id number] / [id number]
[2019-07-18 10:51] VITALS: BP 175/84
[2019-07-18] MEDS ORDERED: BISA10SU4 PR (11:01)
--- NOTE | 2019-07-18 11:11 | DISCH ---
DISCHARGE ORDERS DISCHARGE DATE: Jul 18, 2019 FINAL DIAGNOSIS UTI CONDITION AT DISCHARGE: Stable Code Status: DNR/DNI SNF STAY <30 DAYS: Yes HOSPICE: No HOSPICE EVALUATE & TREAT: No ADMIT TO LTAC: No POST DISCHARGE ORDERS: ACTIVITY ORDERS: No restrictions, Activity as tolerated WEIGHT BEARING STATUS: No restrictions DIET AFTER DISCHARGE: Regular WOUND/INCISION CARE: Change dressing OTHER ORDERS: Change mcbride catheter twice a month. CHECKS AFTER DISCHARGE: COMMENTS: Do monthly UA with micro TREATMENT/EQUIPMENT ORDERS: ADAPTIVE EQUIPMENT NEEDED: None DISCHARGE MEDICATIONS: Home Meds Reported Medications Lactobacillus Acidophilus (PROBIOTIC) 1 Each Capsule, 1 EACH PO BID for health maintenance, CAP 07/14/19 Ascorbic Acid (ASCORBIC ACID) 500 Mg Tablet, 500 MG PO DAILY for supplement, TAB 05/17/19 Trospium Chloride (TROSPIUM CHLORIDE) 20 Mg Tablet, 20 MG PO BID for neuromuscular dysfunction , TAB 05/17/19 Nitroglycerin (NITROGLYCERIN SubLingual) 0.4 Mg Tab.subl, 0.4 MG SL PRN Q5MIN PRN for CHEST PAIN, BOTTLE 05/17/19 Sodium Chloride (NASAL MOISTURIZING) 88 Ml [place], 1 SPR NS BID for Congestion 05/17/19 Multivitamin With Minerals (ONE DAILY PLUS MINERALS) 1 Each Tablet, 1 EACH PO DAILY for supplement, TAB 05/17/19 Hyoscyamine Sulfate (LEVSIN) 0.125 Mg Tablet, 0.125 MG PO PRN Q4HRS PRN for pain/cramps, TAB max 1.5/24hrs 05/17/19 Fentanyl (FENTANYL 75mcg/hr) 1 Each Patch.td72, 1 PATCH TD Q72H for pain, PATCH 05/17/19 Ubidecarenone (COENZYME Q10) 100 Mg Tablet, 100 MG PO DAILY for Supplement, TAB 05/17/19 Clonidine Hcl (CLONIDINE HCL) 0.1 Mg Tablet, 0.1 MG PO BID for HTN, TAB 05/17/19 Diphenhydramine Hcl (BENADRYL) 25 Mg Capsule, 50 MG PO PRN Q6HRS PRN for ITCHING, CAP 05/17/19 Amino Acids/Protein Hydrolys (PRO-STAT LIQUID) 30 Ml Liquid.pkt, 30 ML PO BID fo r WOUND HEALING 10/22/18 Atorvastatin Calcium (ATORVASTATIN CALCIUM) 20 Mg Tablet, 20 MG PO QHS for FOR CHOLESTEROL 10/22/18 Amlodipine Besylate (AMLODIPINE BESYLATE) 5 Mg Tablet, 1 TAB PO DAILY for HYPERTENSION 10/22/18 Famotidine (FAMOTIDINE) 40 Mg Tablet, 40 MG PO DAILY for GERD 08/17/18 Cranberry Extract (CRANBERRY) 425 Mg Capsule, 850 MG PO BID for UTI Prevention 08/17/18 Levothyroxine Sodium (LEVOTHYROXINE SODIUM) 75 Mcg Tablet, 75 MCG PO DAILY06 for THYROID SUPPLEMENT 08/17/18 Metoprolol Tartrate (METOPROLOL TARTRATE) 25 Mg Tablet, 25 MG PO BID for FOR HYPERTENSION 08/17/18 Apixaban (ELIQUIS) 5 Mg Tablet, 2.5 MG PO BID for AFib 08/17/18 Bisacodyl (BISACODYL) 10 Mg Supp.rect, 10 MG RC PRN DAILY PRN for CONSTIPATION 08/17/18 Acetaminophen (TYLENOL) 325 Mg Tablet, 650 MG PO PRN Q8HRS PRN for PAIN 08/17/18 Ondansetron Hcl (ONDANSETRON HCL) 4 Mg Tablet, 1 TAB PO PRN Q6HRS PRN for NAUSEA/VOMITING 12/17/15 Magnesium Hydroxide (MILK OF MAGNESIA) 400 Mg/5 Ml Oral.susp, 30 ML PO DAILY PRN for CONSTIPATION 12/17/15 Loperamide Hcl (LOPERAMIDE) 2 Mg Capsule, 2 MG PO PRN Q6HRS PRN for DIARRHEA 12/17/15 Calcium Carbonate/Mag Hydrox (ANTACID CHEWABLE TABLET) 1 Each Tab.chew, 1 EACH PO PRN Q6HRS PRN for HEARTBURN / GAS 12/17/15 Nystatin (NYSTATIN) 15 Gm Powder, 1 RASHAD TP PRN Q4HRS PRN for RASH 12/17/15 Cholecalciferol (Vitamin D3) (VITAMIN D) 1,000 Unit Tablet, 1000 UNIT PO DAILY for Supplement 12/29/14 Cyanocobalamin (Vitamin B-12) (VITAMIN B-12) 250 Mcg Tablet, 250 MCG PO DAILY for Supplement 12/29/14 Polyethylene Glycol 3350 (POLYETHYLENE GLYCOL 3350) 2,500 Gm Powder, 17 GM MC DAILY for Constipation 12/29/14 Magnesium Oxide (MAGNESIUM OXIDE) 400 Mg Tablet, 400 MG PO DAILY for Supplement 12/29/14 Docusate Sodium (DOCUSATE SODIUM) 100 Mg Capsule, 200 MG PO DAILY for Stool [place] 12/29/14 Acetaminophen (TYLENOL) 325 Mg Tablet, 650 MG PO BID for Pain 12/29/14 Discontinued Reported Medications Acidophilus/Bulgaricus (FLORANEX TABLET) 1 Each Tablet, 1 EACH PO BID for [place] pplement, TAB 05/17/19 DARCIE TUCKER MD Jul 18, 2019 11:11
--- NOTE | 2019-07-18 11:30 | NUR ---
Discharge Note: VINAY MARRERO [address] Discharge instructions and discharge home medications reviewed with Patient and a copy given. All questions have been answered and understanding verbalized. The following instructions and handouts were given: Follow up with Dr. Yesica laws twice a day, report to the halfway for 30 days. Discontinued lines and drains: Pressure dressing applied, IV catheter tip intact, peripheral IV removed. Patient discharged to [facility]
== END 2019-07-18 13:49 | disposition home or self-care (01) | DRG 871 ==
LOC: ER 13:26 → 1 SOUTH 18:06
PROVIDERS: ADMIT Family Medicine; ATTEND Family Medicine
DX: A41.9 Sepsis, unspecified organism (principal); G93.41 Metabolic encephalopathy; N12 Tubulo-interstitial nephritis, not specified as acute or chronic; I48.20 Chronic atrial fibrillation, unspecified; F03.90 Unspecified dementia, unspecified severity, without behavioral disturbance, psychotic disturbance, mood disturbance, and anxiety; Z66 Do not resuscitate; I11.0 Hypertensive heart disease with heart failure; I50.9 Heart failure, unspecified; E03.9 Hypothyroidism, unspecified; E78.00 Pure hypercholesterolemia, unspecified; J44.9 Chronic obstructive pulmonary disease, unspecified; I25.10 Atherosclerotic heart disease of native coronary artery without angina pectoris; F20.9 Schizophrenia, unspecified; Z87.440 Personal history of urinary (tract) infections; Z88.8 Allergy status to other drugs, medicaments and biological substances; Z79.01 Long term (current) use of anticoagulants; Z90.710 Acquired absence of both cervix and uterus; Z93.6 Other artificial openings of urinary tract status; Z88.1 Allergy status to other antibiotic agents
CPT/HCPCS: 36415; 71045; 80048; 80053; 81001; 83605; 84484; 85025; 87040; 87086; 87186; 87804; 93005; 96365; J0696; J2405; 99285-25; J7030

== ENCOUNTER 2019-09-01 11:36 | Inpatient (IN) | payer MEDICARE, OTHER ==
[~2019-09-01] VITALS: Ht 172.7 cm; Wt 94.8 kg
[~2019-09-01 11:36] MED LIST changes: +BISA10SU4 PR; +LACT1CAP6 PO
--- NOTE | 2019-09-01 12:07 | PHYS DOC ---
Past History Past Medical History: Dementia, Schizophrenia, UTI Additional Past Medical Histor: sepsis; cerebrovascular disease Past Surgical History: Other Additional Past Surgical Histo: suprapubic cath Smoking: Non-smoker Alcohol Use: None Drug Use: None Adult General Chief Complaint Chief Complaint: WOUND CHECK HPI HPI Patient is a 84-year-old female, who presents to the emergency department from her nursing facility for a wound evaluation. The patient reportedly has had a blister on her right heel for quite some time, and patient states that a nurses aide was helping her at the facility today, and her foot dragged, causing the blister rupture. She denies any pain, or any other complaints. He is reportedly on an antibiotic, although it appears to be Macrobid for UTI, according to nursing facility notes. The patient denies any pain at this time, numbness or weakness. She has not had any fevers. The staff at the facility reportedly wants the patient evaluated. There are no alleviating or exacerbating factors to her symptoms. Review of Systems Review of Systems Constitutional: Denies fever or chills [] Eyes: Denies change in visual acuity, redness, or eye pain [] HENT: Denies nasal congestion or sore throat [] Respiratory: Denies cough or shortness of breath [] Cardiovascular: The patient denies any shortness of breath, chest pain, palpitations, or orthopnea [] GI: Denies abdominal pain, nausea, vomiting, bloody stools or diarrhea [] : Denies dysuria or hematuria [] Musculoskeletal: Denies back pain or joint pain [] Integument: Denies rash or skin lesions [] Neurologic: Denies headache, focal weakness or sensory changes [] Endocrine: Denies polyuria or polydipsia [] All other systems were reviewed and found to be within normal limits, except as documented in this note. Allergies Allergies Allergies Coded Allergies Type Severity Reaction Last Updated Verified Cephalexin Monohydrate Allergy Intermediate tolerated cefdinir, merrem in past 07/14/19 Yes Iodinated Contrast Media Allergy Intermediate 05/16/19 Yes Penicillins Allergy Intermediate tolerated cefdinir, merrem in past 07/14/19 Yes Sulfonylureas Allergy Intermediate 05/16/19 Yes amoxicillin Allergy Intermediate tolerated cefdinir, merrem in past 07/14/19 Yes bacitracin zinc Allergy Intermediate 05/16/19 Yes ciprofloxacin HCl Allergy Intermediate 05/16/19 Yes colistimethate sodium Allergy Intermediate 05/16/19 Yes dexamethasone Allergy Intermediate 05/16/19 Yes doxycycline Allergy Intermediate 05/16/19 Yes gramicidin D Allergy Intermediate 05/16/19 Yes iodine Allergy Intermediate 05/16/19 Yes morphine Allergy Intermediate 05/16/19 Yes moxifloxacin HCl Allergy Intermediate 05/16/19 Yes neomycin sulfate Allergy Intermediate 05/16/19 Yes polymyxin B sulfate Allergy Intermediate 05/16/19 Yes pramoxine HCl Allergy Intermediate 05/16/19 Yes silver sulfadiazine Allergy Intermediate 05/16/19 Yes sulfamethoxazole Allergy Intermediate 05/16/19 Yes trimethoprim Allergy Intermediate 05/16/19 Yes vancomycin Allergy Intermediate 05/16/19 Yes Physical Exam Physical Exam PHYSICAL EXAM: CONSTITUTIONAL: Well developed, well nourished HEAD: normocephalic, atraumatic EENT: PERRL, EOMI. Conjunctivae normal color, sclerae non-icteric; moist mucous membranes. NECK: Supple, non-tender; no meningismus. LUNGS: Lungs CTA, breathing even and unlabored. Normal air movement. HEART: Regular rate and rhythm, no murmur CHEST: No deformity; non-tender ABDOMEN: The abdomen is soft, and non-tender, no masses or bruits. EXTREM: Normal ROM; no deformity, no calf tenderness. Normal pulses palpable in all extremities. There is no pedal edema. On the plantar surface of the right heel, there is an approximately silver dollar sized blister which appears to have ruptured, with some bogginess to the bed of the blister palpable, deep to the skin that remains covering the ruptured blister. There is no active drainage or. Once, or significant warmth, or erythema surrounding the site. The remainder of the lower extremity is unremarkable. SKIN: No rash; no diaphoresis NEURO: Alert; normal speech and cognition; CN's grossly intact; strength grossly intact without focal deficit. BACK: No CVA TTP. Current Patient Data Vital Signs Vital Signs Date Time Temp Pulse Resp B/P (MAP) Pulse Ox O2 Delivery O2 Flow Rate FiO2 09/01/19 11:47 98.4 63 16 130/67 (88) 95 Room Air Lab Results Laboratory Tests Test 09/01/19 12:05 White Blood Count 7.8 x10^3/uL Red Blood Count 4.33 x10^6/uL Hemoglobin 11.7 g/dL Hematocrit 36.3 % Mean Corpuscular Volume 84 fL Mean Corpuscular Hemoglobin 27 pg Mean Corpuscular Hemoglobin Concent 32 g/dL Red Cell Distribution Width 14.6 % Platelet Count 222 x10^3/uL Neutrophils (%) (Auto) 71 % Lymphocytes (%) (Auto) 20 % Monocytes (%) (Auto) 7 % Eosinophils (%) (Auto) 3 % Basophils (%) (Auto) 0 % Neutrophils # (Auto) 5.6 x10^3uL Lymphocytes # (Auto) 1.5 x10^3/uL Monocytes # (Auto) 0.5 x10^3/uL Eosinophils # (Auto) 0.2 x10^3/uL Basophils # (Auto) 0.0 x10^3/uL Erythrocyte Sedimentation Rate 37 Sodium Level 141 mmol/L Potassium Level 4.3 mmol/L Chloride Level 104 mmol/L Carbon Dioxide Level 29 mmol/L Anion Gap 8 Blood Urea Nitrogen 31 mg/dL Creatinine 0.8 mg/dL Estimated GFR (Cockcroft-Gault) 68.7 Glucose Level 101 mg/dL Lactic Acid Level 1.1 mmol/L Calcium Level 8.6 mg/dL C-Reactive Protein 13.5 mg/L EKG EKG [] Radiology/Procedures Radiology/Procedures PROCEDURE: FOOT RIGHT 3V EXAM: Right foot 3 views. HISTORY: Right heel wound. COMPARISON: None. FINDINGS: Three views of the right foot are obtained. No deep heel ulcer is appreciated by radiographs. No underlying cortical erosion is identified. There is diffuse soft tissue swelling. Chronic healed fractures are suspected along the first metatarsal and first proximal phalanx. There is diffuse moderate to severe osteopenia. 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 There are small to moderate plantar and posterior calcaneal spurs. IMPRESSION: 1. No clear acute osteomyelitis by radiographs. Diffuse soft tissue swelling. 2. Degenerative changes as above. [] Course & Med Decision Making Course & Med Decision Making Pertinent Labs and Imaging studies reviewed. (See chart for details) []The patient's condition remains stable. I spoke with the hospitalist, who accepted the patient to the hospital for further evaluation and treatment, and evaluation of possible underlying osteomyelitis. Dragon Disclaimer Dragon Disclaimer This electronic medical record was generated, in whole or in part, using a voice recognition dictation system. Departure Departure: Impression: Primary Impression: Wound, open, foot Disposition: ADMITTED INPATIENT Admitting Physician: Thierno Amin Condition: STABLE Referrals: DARCIE TUCKER MD (PCP) ERIKA REYNOLDS MD Sep 01, 2019 12:07
[2019-09-01 12:25] LABS: BASO % 0 % (0-3); EOS # 0.2 x10^3/uL (0.0-0.7); EOS % 3 % (0-3); HEMATOCRIT 36.3 % (36.0-47.0); HEMOGLOBIN 11.7 g/dL (12.0-15.5); LYMPH # 1.5 x10^3/uL (1.0-4.8); LYMPH % 20 % (24-48); MEAN CORPUSCULAR HEMOGLOBIN 27 pg (25-35); MEAN CORPUSCULAR HGB CONC 32 g/dL (31-37); MEAN CORPUSCULAR VOLUME 84 fL (79-100); MONO # 0.5 x10^3/uL (0.0-1.1); MONO % 7 % (0-9); NEUT # 5.6 x10^3uL (1.8-7.7); NEUT % 71 % (31-73); PLATELET COUNT 222 x10^3/uL (140-400); RED BLOOD COUNT 4.33 x10^6/uL (3.50-5.40); RED CELL DISTRIBUTION WIDTH 14.6 % (11.5-14.5); WHITE BLOOD COUNT 7.8 x10^3/uL (4.0-11.0)
[2019-09-01 12:31] LABS: CALCIUM 8.6 mg/dL (8.5-10.1); CREATININE 0.8 mg/dL (0.6-1.0); GFR 68.7; POTASSIUM 4.3 mmol/L (3.5-5.1)
[2019-09-01 12:32] LABS: C REACTIVE PROTEIN 13.5 mg/L (0-3.3)
--- NOTE | 2019-09-01 13:16 | RAD ---
EXAM: Right foot 3 views. HISTORY: Right heel wound. COMPARISON: None. FINDINGS: Three views of the right foot are obtained. No deep heel ulcer is appreciated by radiographs. No underlying cortical erosion is identified. There is diffuse soft tissue swelling. Chronic healed fractures are suspected along the first metatarsal and first proximal phalanx. There is diffuse moderate to severe osteopenia. 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 There are small to moderate plantar and posterior calcaneal spurs. IMPRESSION: 1. No clear acute osteomyelitis by radiographs. Diffuse soft tissue swelling. 2. Degenerative changes as above. Electronically signed by: Oneida Barker MD (09/01/2019 1:13 PM) [facility]
[2019-09-01 13:36] LABS: SEDIMENTATION RATE 37 (0-25)
[2019-09-01] MEDS ORDERED: CLINDAMYCIN 600MG PREMIX 50 ML IV ONE (14:30)
[2019-09-01 15:55] VITALS: BP 116/75
[2019-09-01] MEDS ORDERED: LACT1CAP6 PO (16:31)
[2019-09-01] MEDS ORDERED: NITR100C62 PO (16:31)
[2019-09-01] MEDS ORDERED: SPIR50TA PO (16:31)
[2019-09-01] MEDS ORDERED: NYSTATIN TOPICAL POWDER 15GM BOTTLE. TP PRN (17:15)
[2019-09-01] MEDS ORDERED: LOPERAMIDE 2 MG CAPSULE PO PRN (17:15)
[2019-09-01] MEDS ORDERED: ACETAMINOPHEN 325 MG TABLET PO PRN (17:15)
[2019-09-01] MEDS ORDERED: NITROGLYCERIN SUBLINGUAL 0.4 MG BOTTLE OF 25. SL PRN (17:15)
[2019-09-01] MEDS ORDERED: MAGNESIUM HYDROXIDE 2,400 MG/30 ML ORAL.SUSP. PO PRN (17:15)
[2019-09-01] MEDS ORDERED: diphenhydrAMINE HCL 25 MG CAPSULE PO PRN (17:15)
[2019-09-01] MEDS ORDERED: BISACODYL 10 MG SUPP.RECT RC PRN (17:15)
[2019-09-01 19:00] VITALS: BP 120/71
[2019-09-01] MEDS: ATORVASTATIN CALCIUM 20 MG TABLET PO SCH (20:24)
[2019-09-01] MEDS: NITROFURANTOIN MONOHYD/M-CRYST 100 MG CAPSULE. PO SCH (20:24)
[2019-09-01] MEDS: cloNIDine HCL 0.1 MG TABLET PO SCH (20:25)
[2019-09-01] MEDS: DOCUSATE SODIUM 100 MG CAPSULE PO SCH (20:25)
[2019-09-01] MEDS: METOPROLOL TART IMMED RELEASE 25 MG TABLET PO SCH (20:25)
[2019-09-01] MEDS: ACETAMINOPHEN 325 MG TABLET PO SCH (20:26)
[2019-09-01] MEDS: APIXABAN 2.5 MG TABLET PO SCH (20:26)
[2019-09-01] MEDS: SODIUM CHLORIDE 0.65% NASAL SPRAY 45ML BOTTLE. NS SCH (20:26)
[2019-09-01 23:03] VITALS: BP 100/62
[2019-09-02] MEDS: LEVOTHYROXINE 75 MCG TABLET PO SCH (05:48)
[2019-09-02 05:59] VITALS: BP 117/72
[2019-09-02 06:22] LABS: HEMATOCRIT 35.8 % (36.0-47.0); HEMOGLOBIN 11.3 g/dL (12.0-15.5); RED BLOOD COUNT 4.24 x10^6/uL (3.50-5.40); RED CELL DISTRIBUTION WIDTH 14.7 % (11.5-14.5); WHITE BLOOD COUNT 5.9 x10^3/uL (4.0-11.0)
[2019-09-02 06:37] LABS: ALBUMIN 2.8 g/dL (3.4-5.0); ALBUMIN/GLOBULIN RATIO 0.9 (1.0-1.7); CALCIUM 8.6 mg/dL (8.5-10.1); CREATININE 0.8 mg/dL (0.6-1.0); GFR 68.7; POTASSIUM 4.3 mmol/L (3.5-5.1); TOTAL BILIRUBIN 0.1 mg/dL (0.2-1.0)
[2019-09-02] MEDS: DOCUSATE SODIUM 100 MG CAPSULE PO SCH ×2 (08:27→20:44)
[2019-09-02] MEDS: MAGNESIUM OXIDE 400 MG TABLET PO SCH (08:27)
[2019-09-02] MEDS: ASCORBIC ACID 500 MG TABLET PO SCH (08:27)
[2019-09-02] MEDS: NITROFURANTOIN MONOHYD/M-CRYST 100 MG CAPSULE. PO SCH ×2 (08:27→20:44)
[2019-09-02] MEDS: METOPROLOL TART IMMED RELEASE 25 MG TABLET PO SCH ×2 (08:27→20:44)
[2019-09-02] MEDS: cloNIDine HCL 0.1 MG TABLET PO SCH ×3 (08:27→20:46)
[2019-09-02] MEDS: APIXABAN 2.5 MG TABLET PO SCH ×2 (08:27→20:44)
[2019-09-02] MEDS: CYANOCOBALAMIN (VITAMIN B-12) 1,000 MCG TABLET. PO SCH (08:27)
[2019-09-02] MEDS: ACETAMINOPHEN 325 MG TABLET PO SCH ×2 (08:28→20:42)
[2019-09-02] MEDS: CHOLECALCIFEROL (VITAMIN D3) 1,000 UNIT TABLET PO SCH (08:28)
[2019-09-02] MEDS: SODIUM CHLORIDE 0.65% NASAL SPRAY 45ML BOTTLE. NS SCH ×2 (08:29→21:15)
[2019-09-02] MEDS: amLODIPine BESYLATE 5 MG TABLET PO SCH (08:29)
[2019-09-02] MEDS: fentaNYL 75MCG/HR 1 PATCH PATCH TD SCH (08:32)
[2019-09-02 10:40] VITALS: BP 112/68
--- NOTE | 2019-09-02 11:08 | HP ---
ADMIT DATE: 09/01/2019 HISTORY OF PRESENT ILLNESS: The patient is an 84-year-old female came in from the nursing facility at [facility]. Apparently, there was a claim that she had some blood blisters on the bottom of her feet secondary to some foot dragging and blister ruptured. She actually has blisters on both feet and the one on the right side apparently busted and has been broken down. The skin is breaking down. There is possibility of infection. She has multiple urinary tract infections; however, the patient was brought in for cellulitis to the bottom of her feet with blood blisters that will obtain a wound clinic evaluation here in the hospital. The patient is in quite a bit of pain 8-04/12 with the blistering on the bottom of her feet and wound care treatment as well. The patient also will be monitored for her urinary tract infection and make further evaluation on her as indicated. The patient is on IV antibiotic therapy. PAST MEDICAL HISTORY: Includes neuromuscular dysfunction. The patient is pretty much bedridden. PAST MEDICAL HISTORY: She has had a history of stroke, cardiac disorders, atherosclerosis, chronic atrial fibrillation, history of atrial fibrillation, on chronic anticoagulation. 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 She has also had a history of sepsis, clotting disorders. Her Influenza and pneumococcal vaccinations are up-to-date. FAMILY HISTORY: Unremarkable. ALLERGIES: KEFLEX, IODINATED CONTRAST MEDIA, PENICILLIN, SULFONYLUREA, PENICILLIN, BACITRACIN, ZINC, CIPRO, DEXAMETHASONE, DOXYCYCLINE, GRAMICIDIN D, IODINE, MORPHINE, MOXIFLOXACIN, NEOMYCIN, possible SULFASALAZINE (AZULFIDINE), ____ SULFUR and possibly VANCOMYCIN. HOME MEDICATIONS: Reviewed and reconciled including Macrobid, Levsin, Eliquis 2.5 b.i.d., Lipitor 20, clonidine 0.1, metoprolol 25 b.i.d., Norvasc 5, spironolactone, fentanyl, Tylenol, sodium chloride, calcium carbonate, magnesium oxide, loperamide, bisacodyl, docusate sodium, levothyroxine 75 mcg, Pepcid 40 mg, nystatin 15 gram powder, trospium for neuromuscular dysfunction 20 mg tablet b.i.d., vitamin B12, ascorbic acid, vitamin D, cranberry extract, Coenzyme Q10 and polyethylene glycol for constipation. SOCIAL HISTORY: The patient denies smoking, alcohol or drug use. The patient lives out at [facility] as she is totally disabled. No smoking or alcohol as noted. REVIEW OF SYSTEMS: The patient in severe pain to the bottom of her feet. Otherwise, the patient denies any headaches, visual changes, blurred vision, double vision. Denies any other major neurological dysfunction that she already had before with right-sided weakness. The patient denies any chest pain, shortness of breath, abdominal pain, problems with urination. Neurologically, baseline for her. She is alert and oriented presently. PHYSICAL EXAMINATION: GENERAL: This is a pleasant white female, in moderate amount of apparent distress. VITAL SIGNS: Blood pressure 117/72, respiratory rate 16, pulse 63, afebrile. NEUROLOGIC: The patient is alert and oriented. Speech is fluent, spontaneous and appropriate. She is in good affect. HEENT: Otherwise, the head was atraumatic, normocephalic. Eyes: PERRLA without jaundice. Mouth and throat: Poor dentition. NECK: Supple, without JVD, carotid bruits or thyromegaly. LUNGS: Diminished, but clear. CARDIOVASCULAR: Irregularly irregular rhythm. ABDOMEN: Protuberant, soft, nontender, no rebound or guarding. Positive bowel sounds. Urostomy in place. EXTREMITIES: No clubbing or cyanosis. Trace edema noted. Some possible chronic lymphedema. The feet, bilateral on the soles of the plantar surfaces. The patient has large areas of blood blisters approximately 6 x 4 cm on both, one on the right appears to have broken down and there is skin circumference in the hematoma itself. X-rays were negative of the foot. LABORATORY DATA: The patient's white count is 7, hemoglobin and hematocrit 11 and 36. Sed rate 37. Chemistries 144, 4.3, 26 and 0.8. The patient's blood sugar was stable. The patient did have a low albumin of 2.8 showing severe protein malnutrition and her CRP was 13.5. The patient's urine is still pending. We will continue on her Cleocin for now. Wound care is coming in to evaluate the patient and make suggestions for these blood blisters on that ruptured and looks like they probably need to be debrided and cleaned out and evaluated further why she is having this problem. A bone scan is pending to rule out any type of osteomyelitis or other abnormalities found there. IMPRESSION: Therefore, blood blisters to the feet, possible cellulitis to the bilateral soles of the feet, history of cerebrovascular accident, multiple urinary tract infections, right-sided hemiplegia, severe protein malnutrition, hyperglycemia, anemia of chronic disease. PLAN: As above. DARCIE TUCKER MD DR: ZANE/nts JOB#: [id number] / [id number]
[2019-09-02] MEDS: CLINDAMYCIN 600MG PREMIX 50 ML IV SCH ×2 (14:12→21:15)
[2019-09-02 15:41] VITALS: BP 118/76
--- NOTE | 2019-09-02 16:39 | RAD ---
EXAM: Triple phase bone scintigraphy. HISTORY: Plantar ulcers of both feet. COMPARISON: Radiographs, 09/01/2019. FINDINGS: 25 mCi technetium 99m MDP was administered intravenously. Scintigraphic images of both feet were obtained in angiographic, immediate and delayed phases. Angiographic images demonstrate hyperperfusion in the region of the left greater than right hindfeet. Blood pool images demonstrate a similar pattern. Delayed images demonstrate moderate uptake at the right greater than left mid feet. There is no clearly increased uptake at either heel. There is some increased uptake along the right fifth digit. IMPRESSION: 1. Increased angiographic and blood pool uptake along the left greater than right heels suggests cellulitis and soft tissue inflammation. There is no clear underlying delayed uptake to indicate osteomyelitis. 2. Correlate for a subacute fracture versus degenerative change at the right fifth digit. 3. Degenerative uptake at the right greater than left mid feet. Electronically signed by: Oneida Barker MD (09/02/2019 4:36 PM) [facility]
[2019-09-02 18:55] VITALS: BP 98/61
[2019-09-02] MEDS: METOCLOPRAMIDE 5 MG TABLET PO PRN (20:38)
[2019-09-02] MEDS: ATORVASTATIN CALCIUM 20 MG TABLET PO SCH (20:43)
[2019-09-02] MEDS: LACTOBACILLUS RHAMNOSUS GG 1 CAPSULE. PO SCH (20:43)
[2019-09-02 23:35] VITALS: BP 106/62
[2019-09-03] MEDS: ONDANSETRON PF 4 MG/2 ML VIAL. IVP PRN ×3 (04:34→20:57)
[2019-09-03 05:32] VITALS: BP_SYST 112; BP_SYST 154; BP_DIAS 71; BP_DIAS 75
[2019-09-03] MEDS: CLINDAMYCIN 600MG PREMIX 50 ML IV SCH ×3 (06:04→21:42)
[2019-09-03] MEDS: LEVOTHYROXINE 75 MCG TABLET PO SCH (06:04)
[2019-09-03] MEDS: DOCUSATE SODIUM 100 MG CAPSULE PO SCH ×2 (09:00→21:00)
[2019-09-03] MEDS: SODIUM CHLORIDE 0.65% NASAL SPRAY 45ML BOTTLE. NS SCH ×2 (09:00→21:07)
[2019-09-03] MEDS: ASCORBIC ACID 500 MG TABLET PO SCH (09:08)
[2019-09-03] MEDS: MAGNESIUM OXIDE 400 MG TABLET PO SCH (09:08)
[2019-09-03] MEDS: ACETAMINOPHEN 325 MG TABLET PO SCH ×2 (09:08→20:58)
[2019-09-03] MEDS: APIXABAN 2.5 MG TABLET PO SCH ×2 (09:08→20:58)
[2019-09-03] MEDS: NITROFURANTOIN MONOHYD/M-CRYST 100 MG CAPSULE. PO SCH ×2 (09:09→20:58)
[2019-09-03] MEDS: amLODIPine BESYLATE 5 MG TABLET PO SCH (09:09)
[2019-09-03] MEDS: cloNIDine HCL 0.1 MG TABLET PO SCH ×2 (09:10→20:59)
[2019-09-03] MEDS: CYANOCOBALAMIN (VITAMIN B-12) 1,000 MCG TABLET. PO SCH (09:10)
[2019-09-03] MEDS: METOPROLOL TART IMMED RELEASE 25 MG TABLET PO SCH ×2 (09:10→20:59)
[2019-09-03] MEDS: CHOLECALCIFEROL (VITAMIN D3) 1,000 UNIT TABLET PO SCH (09:10)
[2019-09-03] MEDS: LACTOBACILLUS RHAMNOSUS GG 1 CAPSULE. PO SCH ×2 (09:10→20:58)
[2019-09-03 11:01] VITALS: BP 133/74
[2019-09-03] MEDS: METOCLOPRAMIDE 5 MG TABLET PO PRN (13:04)
[2019-09-03 15:41] VITALS: BP 97/60
[2019-09-03 19:25] VITALS: BP 132/75
[2019-09-03 19:54] LABS: BASO % 0 % (0-3); EOS # 0.1 x10^3/uL (0.0-0.7); EOS % 2 % (0-3); HEMATOCRIT 34.7 % (36.0-47.0); HEMOGLOBIN 11.1 g/dL (12.0-15.5); LYMPH # 1.6 x10^3/uL (1.0-4.8); LYMPH % 23 % (24-48); MEAN CORPUSCULAR HEMOGLOBIN 27 pg (25-35); MEAN CORPUSCULAR HGB CONC 32 g/dL (31-37); MEAN CORPUSCULAR VOLUME 85 fL (79-100); MONO # 0.5 x10^3/uL (0.0-1.1); MONO % 7 % (0-9); NEUT # 4.8 x10^3uL (1.8-7.7); NEUT % 68 % (31-73); PLATELET COUNT 215 x10^3/uL (140-400); RED CELL DISTRIBUTION WIDTH 14.9 % (11.5-14.5); WHITE BLOOD COUNT 7.1 x10^3/uL (4.0-11.0)
[2019-09-03 20:01] LABS: CALCIUM 8.3 mg/dL (8.5-10.1); CREATININE 0.8 mg/dL (0.6-1.0); GFR 68.7
--- NOTE | 2019-09-03 20:02 | RAD ---
EXAM: ABDOMEN 2 VIEWS. HISTORY: Abdominal pain, bloating, nausea/vomiting. COMPARISON: 03/07/2019. FINDINGS: Supine and upright views of the abdomen are obtained. The heart appears mildly enlarged. Visualization is limited by habitus. There is no pneumoperitoneum. There are no distended small bowel loops or significant air fluid levels. There is moderate to severe gaseous distention of the colon. There is a large amount of stool within the sigmoid colon. A staghorn calculus on the right measures up to 3.5 x 2.0 cm. There is a mild lumbar dextrocurvature with diffuse moderate degenerative changes. Cholecystectomy clips are noted. IMPRESSION: 1. Moderate to severe gaseous distention of the colon and findings suggesting constipation. Correlate for colonic ileus. 2. 3.5 cm right renal staghorn calculus. Electronically signed by: Oneida Barker MD (09/03/2019 7:59 PM) [id number]
[2019-09-03] MEDS: ATORVASTATIN CALCIUM 20 MG TABLET PO SCH (20:58)
[2019-09-03] MEDS: CEFDINIR 300 MG CAPSULE PO SCH (20:58)
[2019-09-03 22:51] VITALS: BP 110/65
--- NOTE | 2019-09-04 04:25 | PN ---
DATE: SUBJECTIVE: An 84-year-old female. The patient has cellulitis to her legs. The patient also, however, this morning began to have severe nausea and vomiting and was markedly distended. Her x-rays of her abdomen have been taken, but still no report on those and not able to view them as it were, but the patient was markedly distended. We had to use 2 or 3 different antiemetics to control her nausea and other than that, the patient fear of being evaluated by the Wound Care [facility] to make further evaluation on her as indicated. Otherwise, we will continue to monitor her accordingly. The patient had a bone scan that showed probably some cellulitis in the heels and that is why she is receiving the IV Cleocin, possible subacute fracture of the small toe. We will continue to monitor that. OBJECTIVE: VITAL SIGNS: Blood pressure otherwise is 97/60, respiratory rate 20, pulse is 70, and afebrile. The patient has moderate amount of discomfort, approximately about 6-7/10. The patient looks concerned. LUNGS: Diminished, but clear. CARDIOVASCULAR: Stable. ABDOMEN: Soft, but distended, very bloated as noted. The x-rays are still pending. EXTREMITIES: No clubbing or cyanosis. NEUROLOGIC: The patient has a good support boots on her bilaterally to protect her heels and her feet. IMPRESSION: Cellulitis to the feet, possible abdominal obstruction, nausea, vomiting, and bloating. X-ray reports to be evaluated there and make further assessment as indicated. Labs are still pending. DARCIE TUCKER MD DR: ZANE/jody JOB#: [id number] / [id number]
[2019-09-04 05:25] VITALS: BP 129/77
[2019-09-04] MEDS: LEVOTHYROXINE 75 MCG TABLET PO SCH (05:25)
[2019-09-04] MEDS: CLINDAMYCIN 600MG PREMIX 50 ML IV SCH ×3 (05:26→21:14)
[2019-09-04 08:11] LABS: CALCIUM 8.3 mg/dL (8.5-10.1); CREATININE 0.8 mg/dL (0.6-1.0); GFR 68.7
[2019-09-04] MEDS: SODIUM CHLORIDE 0.65% NASAL SPRAY 45ML BOTTLE. NS SCH ×2 (09:00→21:15)
[2019-09-04] MEDS: METOPROLOL TART IMMED RELEASE 25 MG TABLET PO SCH ×2 (09:00→21:15)
[2019-09-04] MEDS: LACTOBACILLUS RHAMNOSUS GG 1 CAPSULE. PO SCH ×2 (09:17→21:14)
[2019-09-04] MEDS: METOCLOPRAMIDE 5 MG TABLET PO PRN (09:17)
[2019-09-04] MEDS: CHOLECALCIFEROL (VITAMIN D3) 1,000 UNIT TABLET PO SCH (09:17)
[2019-09-04] MEDS: amLODIPine BESYLATE 5 MG TABLET PO SCH (09:17)
[2019-09-04] MEDS: cloNIDine HCL 0.1 MG TABLET PO SCH ×2 (09:17→20:39)
[2019-09-04] MEDS: NITROFURANTOIN MONOHYD/M-CRYST 100 MG CAPSULE. PO SCH ×2 (09:17→21:15)
[2019-09-04] MEDS: CEFDINIR 300 MG CAPSULE PO SCH ×2 (09:17→21:15)
[2019-09-04] MEDS: DOCUSATE SODIUM 100 MG CAPSULE PO SCH ×2 (09:17→21:14)
[2019-09-04] MEDS: APIXABAN 2.5 MG TABLET PO SCH ×2 (09:18→21:15)
[2019-09-04] MEDS: CYANOCOBALAMIN (VITAMIN B-12) 1,000 MCG TABLET. PO SCH (09:18)
[2019-09-04] MEDS: ACETAMINOPHEN 325 MG TABLET PO SCH ×2 (09:18→21:15)
[2019-09-04] MEDS: ASCORBIC ACID 500 MG TABLET PO SCH (09:18)
[2019-09-04] MEDS: MAGNESIUM OXIDE 400 MG TABLET PO SCH (09:22)
[2019-09-04] MEDS ORDERED: METHYLNALTREXONE 12 MG/0.6 ML VIAL. SQ ONE (10:45)
[2019-09-04 11:03] VITALS: BP 118/67
[2019-09-04] MEDS: BISACODYL TAB 5 MG TABLET.DR. PO SCH (12:47)
[2019-09-04 15:00] VITALS: BP 136/81
[2019-09-04 18:58] VITALS: BP 107/68
[2019-09-04] MEDS: ATORVASTATIN CALCIUM 20 MG TABLET PO SCH (21:15)
[2019-09-04 22:39] LABS: BILIRUBIN,URINE NEG (NEG); CLARITY,URINE HAZY; COLOR,URINE YELLOW; GLUCOSE,URINE NEG (NEG)
[2019-09-04 22:40] LABS: BACTERIA,URINE MOD /HPF (0-FEW); NITRITE,URINE POS (NEG); RBC,URINE RARE /HPF (0-2); UROBILINOGEN,URINE 0.2 mg/dL (0.2 mg/dL)
[2019-09-05] MEDS: ONDANSETRON PF 4 MG/2 ML VIAL. IVP PRN (03:08)
[2019-09-05 05:45] VITALS: BP 155/96
[2019-09-05] MEDS: CLINDAMYCIN 600MG PREMIX 50 ML IV SCH ×3 (06:02→21:47)
[2019-09-05] MEDS: LEVOTHYROXINE 75 MCG TABLET PO SCH (06:02)
[2019-09-05] MEDS: amLODIPine BESYLATE 5 MG TABLET PO SCH (07:46)
[2019-09-05] MEDS: ASCORBIC ACID 500 MG TABLET PO SCH (07:46)
[2019-09-05] MEDS: NITROFURANTOIN MONOHYD/M-CRYST 100 MG CAPSULE. PO SCH ×2 (07:47→21:38)
[2019-09-05] MEDS: CEFDINIR 300 MG CAPSULE PO SCH ×2 (07:47→21:39)
[2019-09-05] MEDS: CHOLECALCIFEROL (VITAMIN D3) 1,000 UNIT TABLET PO SCH (07:47)
[2019-09-05] MEDS: CYANOCOBALAMIN (VITAMIN B-12) 1,000 MCG TABLET. PO SCH (07:47)
[2019-09-05] MEDS: MAGNESIUM OXIDE 400 MG TABLET PO SCH (07:47)
[2019-09-05] MEDS: METOPROLOL TART IMMED RELEASE 25 MG TABLET PO SCH ×2 (07:47→21:39)
[2019-09-05] MEDS: ACETAMINOPHEN 325 MG TABLET PO SCH ×2 (07:47→21:38)
[2019-09-05] MEDS: DOCUSATE SODIUM 100 MG CAPSULE PO SCH ×2 (07:48→21:39)
[2019-09-05] MEDS: BISACODYL TAB 5 MG TABLET.DR. PO SCH (07:48)
[2019-09-05] MEDS: APIXABAN 2.5 MG TABLET PO SCH ×2 (07:48→21:38)
[2019-09-05] MEDS: SODIUM CHLORIDE 0.65% NASAL SPRAY 45ML BOTTLE. NS SCH ×2 (07:48→21:38)
[2019-09-05] MEDS: cloNIDine HCL 0.1 MG TABLET PO SCH ×2 (07:48→21:39)
[2019-09-05] MEDS: LACTOBACILLUS RHAMNOSUS GG 1 CAPSULE. PO SCH ×2 (07:48→21:38)
[2019-09-05] MEDS: fentaNYL 75MCG/HR 1 PATCH PATCH TD SCH (07:54)
[2019-09-05] MEDS ORDERED: METHYLNALTREXONE 12 MG/0.6 ML VIAL. SQ ONE (09:15)
[2019-09-05 11:16] VITALS: BP 135/70
[2019-09-05] MEDS ORDERED: MINERAL OIL 133 ML ENEMA. PR ONE (14:30)
[2019-09-05 15:16] VITALS: BP 126/64
[2019-09-05 19:08] VITALS: BP 150/83
[2019-09-05 21:38] VITALS: BP 144/75
[2019-09-05] MEDS: ATORVASTATIN CALCIUM 20 MG TABLET PO SCH (21:38)
[2019-09-06 05:20] VITALS: BP 142/76
[2019-09-06] MEDS: LEVOTHYROXINE 75 MCG TABLET PO SCH (06:11)
[2019-09-06] MEDS: CLINDAMYCIN 600MG PREMIX 50 ML IV SCH ×2 (06:11→14:00)
[2019-09-06] MEDS: BISACODYL TAB 5 MG TABLET.DR. PO SCH (08:42)
[2019-09-06] MEDS: DOCUSATE SODIUM 100 MG CAPSULE PO SCH (08:42)
[2019-09-06] MEDS: CEFDINIR 300 MG CAPSULE PO SCH (08:42)
[2019-09-06] MEDS: APIXABAN 2.5 MG TABLET PO SCH (08:42)
[2019-09-06] MEDS: ASCORBIC ACID 500 MG TABLET PO SCH (08:42)
[2019-09-06] MEDS: CHOLECALCIFEROL (VITAMIN D3) 1,000 UNIT TABLET PO SCH (08:42)
[2019-09-06] MEDS: cloNIDine HCL 0.1 MG TABLET PO SCH (08:42)
[2019-09-06] MEDS: ACETAMINOPHEN 325 MG TABLET PO SCH (08:42)
[2019-09-06] MEDS: SODIUM CHLORIDE 0.65% NASAL SPRAY 45ML BOTTLE. NS SCH (08:42)
[2019-09-06] MEDS: LACTOBACILLUS RHAMNOSUS GG 1 CAPSULE. PO SCH (08:42)
[2019-09-06] MEDS: CYANOCOBALAMIN (VITAMIN B-12) 1,000 MCG TABLET. PO SCH (08:43)
[2019-09-06] MEDS: MAGNESIUM OXIDE 400 MG TABLET PO SCH (08:43)
[2019-09-06] MEDS: METOPROLOL TART IMMED RELEASE 25 MG TABLET PO SCH (08:43)
[2019-09-06] MEDS: amLODIPine BESYLATE 5 MG TABLET PO SCH (08:43)
--- NOTE | 2019-09-06 10:22 | PN ---
DATE: SUBJECTIVE: An 84-year-old female with bilateral cellulitis to her heels and feet as well as large hematomas, blood blisters to the feet. The patient also was noted to have severe constipation, see x-ray report, abdominal distention, trying to give her drugs of Relistor and suppositories to help her bowels move. In any case, the patient otherwise is a little bit more comfortable than she was yesterday, but still has not had a good bowel movement. OBJECTIVE: VITAL SIGNS: Blood pressure 126/64, respiratory rate 20, pulse 60, afebrile. LUNGS: Clear. CARDIOVASCULAR: Stable. ABDOMEN: Markedly protuberant, but is somewhat improved from yesterday. EXTREMITIES: No clubbing, cyanosis, or edema. The patient had blood blisters on both feet, approximately 5 x 6 cm. The patient otherwise continued to be monitored carefully. Wound care wants to come in tomorrow and so the patient was then transferred as a result of them coming in tomorrow to do the debridement here rather than there. IMPRESSION: Cellulitis to the feet bilaterally, obstipation, constipation, multiple other medical problems as noted above. DARCIE TUCKER MD DR: ZANE/jody JOB#: [id number] / [id number]
[2019-09-06 10:28] VITALS: BP 115/65
[2019-09-06] MEDS ORDERED: MAGNESIUM CITRATE 296 ML SOLUTION. PO ONE (10:30)
--- NOTE | 2019-09-06 11:14 | PDOC ---
SUBJECTIVE: Patient consult for wound care per PCP, Dr. Correa. Patient admitted to the hospital for bilateral foot wounds from [facility]. The facility reports that the wounds occurred suddenly as large fluid-filled blisters are actively draining upon original assessment. Patient sent to [facility] for evaluation and treatment. Patient admitted for bilateral lower extremity cellulitis and treated with Cleocin. Bilateral foot x-rays negative for underlying osteomyelitis. Bone scan obtained and revealed soft tissue swelling consistent with cellulitis, no osteomyelitis evident. Patient with history of CVA and has been nonmobile, wheelchair bound. Patient with minimal movement of her left lower extremity and none of her right. Patient denies painful symptoms to the affected area. Patient states the wounds occurred secondary to her feet dry hacking well-being carried in the Ivy lift. Patient denies underlying diabetes, however does state history of pressure wounds. OBJECTIVE: Problems: Problems Medical Problems: (1) Wound, open, foot Status: Acute Patient awake and alert 84-year-old female in no apparent distress. Patient is a good historian and is pleasant conversation. Vital signs are stable and patient is afebrile. Respirations are even and unlabored. Patient is on room air not requiring supplemental oxygen. Abdomen is mildly distended, nontender to palpation. Skin is warm dry and pink. Coccyx region with mild blanchable erythema and small superficial open ulceration to the right buttock. Bilateral plantar feet with annular areas of eschar overlying the midfoot. Bilaterally there is central intact blood blisters.The eschar is attached at the edges and surrounding tissue is without erythema or edema. Bilateral lower extremities without erythema, or pitting edema at this time. Vital Signs/I&O: Vital Signs Date Time Temp Pulse Resp B/P (MAP) Pulse Ox O2 Delivery O2 Flow Rate FiO2 09/06/19 10:28 97.4 57 20 115/65 (82) 95 Room Air I & O 09/05/19 09/05/19 09/06/19 15:00 23:00 07:00 Intake Total 480 ml Output Total 1 ml 800 ml Balance 480 ml -1 ml -800 ml ASSESSMENT: 1) IAD of the coccyx region 2) Unstageable pressure wounds of the bilat plantar feet PLAN: 1) IAD of the coccyx region - Apply barrier cream with each brief change. - Due to fragile tissue, offloaded as much as possible. Encourage foam wedge to encourage side to side lying positions. Patient currently on alternating pressure mattress. 2) unstageable pressure ulcers to the bilateral plantar feet - No osteomyelitis identified on plain x-rays or on bone scan. Soft tissue swelling identified. Patient currently on Cleocin for cellulitis. - Obtain bilateral lower extremity arterial Doppler due to facility's report of acute onset without known cause of pressure. Location of wound suspicious for pressure caused from footboard of bed or malfitting wheelchair foot rests. - Debridement is contraindicated at this time secondary to the eschar being intact edges without surrounding erythema or edema. Recommend wounds are prepped with Betadine daily and bilateral feet are offloaded at all times. *Recommend patient followed by wound care post discharge as depth of wounds and underlying tissue damage is unknown at this time. EFRAÍN KAY APRN Sep 06, 2019 11:14
--- NOTE | 2019-09-06 17:35 | RAD ---
Bilateral lower extremity arterial duplex study 09/06/2019 CLINICAL HISTORY: New bilateral foot wounds. TECHNIQUE: Using a combination of real-time ultrasound imaging and color-flow and pulse Doppler imaging techniques, duplex evaluation of the major arterial structures of both lower extremities was performed. Multiple images were obtained. FINDINGS: Mild atheromatous/atherosclerotic plaque formation is seen scattered throughout the major arterial structures of both lower extremities. Triphasic/biphasic arterial waveforms are seen throughout. The peak systolic velocities taper normally. No hemodynamically significant stenosis or area of occlusion is seen. IMPRESSION: Mild atheromatous/atherosclerotic plaque formation is seen scattered throughout the major arterial structures of both lower extremities. No hemodynamically significant stenosis or area of occlusion is seen. Electronically signed by: Adonis Napoles MD (09/06/2019 5:32 PM) [id number]
--- NOTE | 2019-09-29 11:19 | DS ---
DATE OF DISCHARGE: 09/06/2019 HOSPITAL COURSE: [facility]. The patient came in with severe bladder infection. The patient has a chronic Smith. She had an elevated white count of 18,000 with 11 bands. The patient was placed on IV antibiotic therapy. Her urine came in with mixed genitourinary saúl. The patient made good progress during the rest of her hospitalization on IV antibiotic therapy. She was having some mental status changes secondary to her infection, but she responded very nicely to the antibiotic therapy, which made a good progress during the rest of her hospitalization. The patient's chest x-ray showed some mild pulmonary congestion, otherwise basically unremarkable there. The patient made good progress. She was discharged back to the prison for further evaluation and she will continue on other medications as indicated. She will be on her heart healthy diet, decreased activity. DIAGNOSES: Metabolic encephalopathy; change in mental status; urinary tract infection, organism unspecified; chronic Smith catheter; decubitus ulcers; chronic atrial fibrillation; chronic congestive heart failure; constipation; chronic obstructive pulmonary disease; dementia; depression; hypercholesterolemia; hyperthyroidism and history of schizophrenia. The patient will be transferred home and make further evaluation on her at that facility. DARCIE TUCKER MD DR: ZANE/jody JOB#: [id number] / [id number]
== END 2019-09-06 17:44 | disposition home or self-care (01) | DRG 602 ==
LOC: ER 11:36 → 1 SOUTH 15:08
PROVIDERS: ADMIT Internal Medicine; ATTEND Family Medicine
DX: L03.115 Cellulitis of right lower limb (principal); L89.893 Pressure ulcer of other site, stage 3; G93.41 Metabolic encephalopathy; E43 Unspecified severe protein-calorie malnutrition; G81.91 Hemiplegia, unspecified affecting right dominant side; I48.20 Chronic atrial fibrillation, unspecified; L03.116 Cellulitis of left lower limb; D63.8 Anemia in other chronic diseases classified elsewhere; E03.9 Hypothyroidism, unspecified; E78.00 Pure hypercholesterolemia, unspecified; F03.90 Unspecified dementia, unspecified severity, without behavioral disturbance, psychotic disturbance, mood disturbance, and anxiety; F20.9 Schizophrenia, unspecified; I48.91 Unspecified atrial fibrillation; I50.9 Heart failure, unspecified; J44.9 Chronic obstructive pulmonary disease, unspecified; K59.00 Constipation, unspecified; L89.90 Pressure ulcer of unspecified site, unspecified stage; S90.821A Blister (nonthermal), right foot, initial encounter; S90.822A Blister (nonthermal), left foot, initial encounter; Z79.01 Long term (current) use of anticoagulants; Z86.73 Personal history of transient ischemic attack (TIA), and cerebral infarction without residual deficits; Z87.440 Personal history of urinary (tract) infections; Z90.710 Acquired absence of both cervix and uterus; Z93.6 Other artificial openings of urinary tract status; Z99.3 Dependence on wheelchair; E66.01 Morbid (severe) obesity due to excess calories; F32.9 Major depressive disorder, single episode, unspecified; F41.9 Anxiety disorder, unspecified; K21.9 Gastro-esophageal reflux disease without esophagitis; M19.90 Unspecified osteoarthritis, unspecified site; Z68.31 Body mass index [BMI] 31.0-31.9, adult; Z88.0 Allergy status to penicillin; Z88.2 Allergy status to sulfonamides; Z88.8 Allergy status to other drugs, medicaments and biological substances; E05.90 Thyrotoxicosis, unspecified without thyrotoxic crisis or storm; L89.159 Pressure ulcer of sacral region, unspecified stage; L89.310 Pressure ulcer of right buttock, unstageable; N30.90 Cystitis, unspecified without hematuria
CPT/HCPCS: 36415; 73630; 74019; 78315; 80048; 80053; 81001; 83605; 85025; 85027; 85651; 86140; 87040; 87086; 87186; 93923; 96365; A9503; J2212; J2405; J3490; J8597; 99285-25

== ENCOUNTER 2019-09-25 14:48 | Emergency (ER) | payer MEDICARE, OTHER ==
[~2019-09-25] VITALS: Ht 172.7 cm; Wt 103.2 kg
[~2019-09-25 14:48] MED LIST changes: +NITR100C62 PO; +SPIR50TA PO
[2019-09-25 15:19] LABS: BASO # 0.1 x10^3/uL (0.0-0.2); BASO % 1 % (0-3); EOS % 0 % (0-3); HEMATOCRIT 40.9 % (36.0-47.0); HEMOGLOBIN 12.8 g/dL (12.0-15.5); LYMPH # 1.8 x10^3/uL (1.0-4.8); LYMPH % 10 % (24-48); MEAN CORPUSCULAR HEMOGLOBIN 27 pg (25-35); MEAN CORPUSCULAR HGB CONC 31 g/dL (31-37); MEAN CORPUSCULAR VOLUME 85 fL (79-100); MONO # 0.7 x10^3/uL (0.0-1.1); MONO % 4 % (0-9); NEUT # 15.6 x10^3uL (1.8-7.7); NEUT % 85 % (31-73); PLATELET COUNT 243 x10^3/uL (140-400); RED BLOOD COUNT 4.82 x10^6/uL (3.50-5.40); RED CELL DISTRIBUTION WIDTH 14.9 % (11.5-14.5); WHITE BLOOD COUNT 18.3 x10^3/uL (4.0-11.0)
--- NOTE | 2019-09-25 15:45 | RAD ---
EXAM: Chest, single view; abdomen, single view. HISTORY: Decreased oxygen saturation. COMPARISON: 07/14/2019. FINDINGS: CHEST: A frontal view of the chest obtained. There is diffuse interstitial infiltrate suggesting pulmonary congestion. There is a stable prominent cardiac silhouette. No pleural effusion or pneumothorax is seen. There are healed rib fractures. ABDOMEN: Frontal views of the abdomen are obtained. There are distended air-filled loops of bowel throughout the abdomen. There is moderate stool within the colon. No clear transition point is seen. There is no free air. There are cholecystectomy clips. IMPRESSION: 1. Suspected mild pulmonary congestion. 2. Distended loops of bowel throughout the abdomen and moderate stool throughout the colon. Correlate for ileus or partial distal obstruction. No free air is seen. No transition point is seen. Electronically signed by: Anabella Jean Baptiste MD (09/25/2019 3:42 PM) [facility]
[2019-09-25 15:46] LABS: MAGNESIUM 3.4 mg/dL (1.8-2.4)
[2019-09-25 16:04] LABS: BILIRUBIN,URINE NEG (NEG); CLARITY,URINE CLOUDY; COLOR,URINE AMBER; GLUCOSE,URINE NEG (NEG)
[2019-09-25 16:05] LABS: BACTERIA,URINE MANY /HPF (0-FEW); GRANULAR CASTS,URINE OCC /HPF; NITRITE,URINE NEG (NEG); RBC,URINE >40 /HPF (0-2); SQUAMOUS EPITHELIAL CELL,UR MOD /LPF; UROBILINOGEN,URINE 0.2 mg/dL (0.2 mg/dL); WBC,URINE TNTC /HPF (0-4); YEAST,URINE PRESENT /HPF
[2019-09-25 16:16] LABS: % EOS 1 % (0-5); % LYMPHS 8 % (24-48); % MONOS 5 % (0-10); % SEGS 75 % (35-66)
[2019-09-25 16:17] LABS: % BANDS 11 % (0-9); PLT ESTIMATE ADEQUATE (ADEQUATE)
[2019-09-25 16:18] LABS: ANISOCYTOSIS SLIGHT; HYPERSEGS PRESENT; SMUDGE CELLS PRESENT; TOXIC GRANULATION SLIGHT; TOXIC VACUOLATION SLIGHT
[2019-09-25] MEDS ORDERED: NITROFURANTOIN MONOHYD/M-CRYST 100 MG CAPSULE. PO ONE (16:30)
--- NOTE | 2019-09-25 17:51 | PHYS DOC ---
Past History Past Medical History: A-Fib, Anemia, Anxiety, CHF, Constipation, COPD, Dementia, Depression, High Cholesterol, Hypertension, Hypothyroid, Schizophrenia, UTI Additional Past Medical Histor: sepsis; cerebrovascular disease Past Surgical History: Other Additional Past Surgical Histo: suprapubic cath Smoking: Non-smoker Alcohol Use: None Drug Use: None Adult General Chief Complaint Chief Complaint: MULTIPLE COMPLAINTS HPI HPI Patient is a 84-year-old female who arrives via EMS from nursing facility with report of some mental status change. Nursing staff for reportedly has concerns regarding a urinary tract infection and indicates the patient has numerous bedsores that they feel needs wound care. Patient is also reportedly been running a fever of 101 today.[] Review of Systems Review of Systems Constitutional: Positive fever and chills[] Respiratory: Denies cough or shortness of breath [] Cardiovascular: No additional information not addressed in HPI [] GI: Denies abdominal pain, nausea, vomiting or diarrhea [] Musculoskeletal: Complains of back and bilateral leg pain [] Integument: Positive pressure sores[] Neurologic: Denies headache, focal weakness or sensory changes [] All other systems were reviewed and found to be within normal limits, except as documented in this note. Current Medications Current Medications Current Medications Medications (Trade) Dose Ordered Sig/Romaine Start Time Stop Time Status Last Admin Dose Admin Nitrofurantoin Macrocrystals (Macrobid) 100 mg 1X ONCE 09/25/19 16:30 09/25/19 16:33 DC 09/25/19 16:38 100 MG Allergies Allergies Allergies Coded Allergies Type Severity Reaction Last Updated Verified Cephalexin Monohydrate Allergy Intermediate tolerated cefdinir, merrem in past 07/14/19 Yes Iodinated Contrast Media Allergy Intermediate 05/16/19 Yes Penicillins Allergy Intermediate tolerated cefdinir, merrem in past 07/14/19 Yes Sulfonylureas Allergy Intermediate 05/16/19 Yes amoxicillin Allergy Intermediate tolerated cefdinir, merrem in past 07/14/19 Yes bacitracin zinc Allergy Intermediate 05/16/19 Yes ciprofloxacin HCl Allergy Intermediate 05/16/19 Yes colistimethate sodium Allergy Intermediate 05/16/19 Yes dexamethasone Allergy Intermediate 05/16/19 Yes doxycycline Allergy Intermediate 05/16/19 Yes gramicidin D Allergy Intermediate 05/16/19 Yes iodine Allergy Intermediate 05/16/19 Yes morphine Allergy Intermediate 05/16/19 Yes moxifloxacin HCl Allergy Intermediate 05/16/19 Yes neomycin sulfate Allergy Intermediate 05/16/19 Yes polymyxin B sulfate Allergy Intermediate 05/16/19 Yes pramoxine HCl Allergy Intermediate 05/16/19 Yes silver sulfadiazine Allergy Intermediate 05/16/19 Yes sulfamethoxazole Allergy Intermediate 05/16/19 Yes trimethoprim Allergy Intermediate 05/16/19 Yes vancomycin Allergy Intermediate 05/16/19 Yes Physical Exam Physical Exam Constitutional: Well developed, well nourished, no acute distress, non-toxic appearance. [] HENT: Normocephalic, atraumatic, bilateral external ears normal, oropharynx moist, no oral exudates, nose normal. [] Eyes: PERRLA, EOMI, conjunctiva normal, no discharge. [] Neck: Normal range of motion, no tenderness, supple, no stridor. [] Cardiovascular: Regular rate and rhythm[] Lungs & Thorax: Bilateral breath sounds clear to auscultation [] Abdomen: Bowel sounds normal, soft, no tenderness. [] Skin: Warm, dry. [] Extremities: No cyanosis, no clubbing, ROM intact. [] Neurologic: Alert and oriented X 3, no focal deficits noted. [] Current Patient Data Vital Signs Vital Signs Date Time Temp Pulse Resp B/P (MAP) Pulse Ox O2 Delivery O2 Flow Rate FiO2 09/25/19 16:53 75 20 116/65 (82) 92 Room Air 09/25/19 14:50 98.6 Lab Results Laboratory Tests Test 09/25/19 15:04 09/25/19 15:35 White Blood Count 18.3 x10^3/uL (4.0-11.0) H Red Blood Count 4.82 x10^6/uL (3.50-5.40) Hemoglobin 12.8 g/dL (12.0-15.5) Hematocrit 40.9 % (36.0-47.0) Mean Corpuscular Volume 85 fL (79-100) Mean Corpuscular Hemoglobin 27 pg (25-35) Mean Corpuscular Hemoglobin Concent 31 g/dL (31-37) Red Cell Distribution Width 14.9 % (11.5-14.5) H Platelet Count 243 x10^3/uL (140-400) Neutrophils (%) (Auto) 85 % (31-73) H Lymphocytes (%) (Auto) 10 % (24-48) L Monocytes (%) (Auto) 4 % (0-9) Eosinophils (%) (Auto) 0 % (0-3) Basophils (%) (Auto) 1 % (0-3) Neutrophils # (Auto) 15.6 x10^3uL (1.8-7.7) H Lymphocytes # (Auto) 1.8 x10^3/uL (1.0-4.8) Monocytes # (Auto) 0.7 x10^3/uL (0.0-1.1) Eosinophils # (Auto) 0.0 x10^3/uL (0.0-0.7) Basophils # (Auto) 0.1 x10^3/uL (0.0-0.2) Segmented Neutrophils % 75 % (35-66) H Band Neutrophils % 11 % (0-9) H Lymphocytes % 8 % (24-48) L Monocytes % 5 % (0-10) Eosinophils % 1 % (0-5) Hypersegmented Neutrophils Present Smudge Cells Present Toxic Granulation Slight Toxic Vacuolation Slight Dohle Bodies Few Platelet Estimate Adequate (ADEQUATE) Large Platelets Few Anisocytosis Slight Magnesium Level 3.4 mg/dL (1.8-2.4) H Ammonia 11 mcmol/L (11-34) Troponin I Quantitative < 0.017 ng/mL (0-0.055) HY-Sci-A-Type Natriuretic Peptide 292 pg/mL (0-449) Urine Collection Type Unknown Urine Color Angelita Urine Clarity Cloudy Urine pH 6.0 Urine Specific [place] 1.020 Urine Protein 100 mg/dl (NEG-TRACE) Urine Glucose (UA) Neg mg/dL (NEG) Urine Ketones (Stick) Trace mg/dL (NEG) Urine Blood Large (NEG) Urine Nitrite Neg (NEG) Urine Bilirubin Neg (NEG) Urine Urobilinogen Dipstick 0.2 mg/dL (0.2 mg/dL) Urine Leukocyte Esterase Mod (NEG) Urine RBC >40 /HPF (0-2) Urine WBC Tntc /HPF (0-4) Urine Squamous Epithelial Cells Mod /LPF Urine Bacteria Many /HPF (0-FEW) Urine Granular Casts Occ /HPF Urine Mucus Mod /LPF Urine Yeast Present /HPF EKG EKG [] Radiology/Procedures Radiology/Procedures [] Course & Med Decision Making Course & Med Decision Making Pertinent Labs and Imaging studies reviewed. (See chart for details) [] Dragon Disclaimer Dragon Disclaimer This electronic medical record was generated, in whole or in part, using a voice recognition dictation system. Departure Departure: Impression: Primary Impression: UTI (urinary tract infection) Additional Impression: Decubitus ulcers Disposition: XF [facility] Admitting Physician: Thierno Amin Condition: IMPROVED Referrals: DARCIE TUCKER MD (PCP) Problem Qualifiers Primary Impression: UTI (urinary tract infection) Urinary tract infection type: site unspecified Hematuria presence: without hematuria Qualified Codes: N39.0 - Urinary tract infection, site not specified Additional Impression: Decubitus ulcers Pressure injury location: unspecified location Pressure injury stage: unspecified pressure injury stage Qualified Codes: L89.90 - Pressure ulcer of unspecified site, unspecified stage ALFREDA STARK Jr. DO Sep 25, 2019 17:51
[2019-09-25 18:23] VITALS: BP 113/66
== END 2019-09-25 19:29 | disposition short-term general hospital (02) ==
LOC: ER 14:48
DX: N39.0 Urinary tract infection, site not specified (principal); L89.90 Pressure ulcer of unspecified site, unspecified stage; M79.605 Pain in left leg; M79.604 Pain in right leg; I48.91 Unspecified atrial fibrillation; I11.0 Hypertensive heart disease with heart failure; I50.9 Heart failure, unspecified; J44.9 Chronic obstructive pulmonary disease, unspecified; E78.00 Pure hypercholesterolemia, unspecified; E03.9 Hypothyroidism, unspecified; F20.9 Schizophrenia, unspecified; F03.90 Unspecified dementia, unspecified severity, without behavioral disturbance, psychotic disturbance, mood disturbance, and anxiety; Z87.440 Personal history of urinary (tract) infections; Z86.2 Personal history of diseases of the blood and blood-forming organs and certain disorders involving the immune mechanism; Z88.1 Allergy status to other antibiotic agents; Z88.5 Allergy status to narcotic agent; Z88.8 Allergy status to other drugs, medicaments and biological substances; Z91.041 Radiographic dye allergy status; Z88.2 Allergy status to sulfonamides
CPT/HCPCS: 36415; 71045; 74018; 81001; 82140; 83735; 83880; 84484; 85007; 85025; 87040; 87086; 99285

== ENCOUNTER 2019-10-23 10:49 | Inpatient (IN) | payer MEDICARE, OTHER ==
[~2019-10-23] VITALS: Ht 167.6 cm; Wt 94.2 kg
[2019-10-23] MEDS ORDERED: IV NORMAL SALINE 1,000ML 1,000 ML IV ONE (11:00)
[2019-10-23 11:31] LABS: BASO % 0 % (0-3); EOS # 0.3 x10^3/uL (0.0-0.7); EOS % 5 % (0-3); HEMOGLOBIN 11.2 g/dL (12.0-15.5); LYMPH # 1.2 x10^3/uL (1.0-4.8); LYMPH % 16 % (24-48); MEAN CORPUSCULAR HEMOGLOBIN 27 pg (25-35); MEAN CORPUSCULAR HGB CONC 32 g/dL (31-37); MEAN CORPUSCULAR VOLUME 84 fL (79-100); MONO # 0.5 x10^3/uL (0.0-1.1); MONO % 6 % (0-9); NEUT # 5.6 x10^3uL (1.8-7.7); NEUT % 73 % (31-73); PLATELET COUNT 208 x10^3/uL (140-400); RED BLOOD COUNT 4.17 x10^6/uL (3.50-5.40); WHITE BLOOD COUNT 7.7 x10^3/uL (4.0-11.0)
[2019-10-23 11:38] LABS: CREATININE 1.2 mg/dL (0.6-1.0); POTASSIUM 4.3 mmol/L (3.5-5.1)
[2019-10-23 11:42] LABS: BILIRUBIN,URINE NEG (NEG); CLARITY,URINE CLOUDY; COLOR,URINE YELLOW; GLUCOSE,URINE NEG (NEG); NITRITE,URINE NEG (NEG); UROBILINOGEN,URINE 0.2 mg/dL (0.2 mg/dL)
[2019-10-23 11:43] LABS: ALBUMIN 2.8 g/dL (3.4-5.0); ALBUMIN/GLOBULIN RATIO 0.7 (1.0-1.7); MAGNESIUM 2.1 mg/dL (1.8-2.4); TOTAL BILIRUBIN 0.2 mg/dL (0.2-1.0); TOTAL PROTEIN 6.9 g/dL (6.4-8.2)
[2019-10-23 11:43] LABS: BACTERIA,URINE MANY /HPF (0-FEW); SQUAMOUS EPITHELIAL CELL,UR OCC /LPF; WBC,URINE 20-40 /HPF (0-4)
[2019-10-23 11:45] LABS: HYALINE CASTS, URINE OCC /HPF; YEAST,URINE PRESENT /HPF
[2019-10-23] MEDS ORDERED: IV NORMAL SALINE 50ML 50 ML ONE (12:09)
[2019-10-23] MEDS ORDERED: cefTRIAXone SODIUM 1 GM VIAL ONE (12:09)
--- NOTE | 2019-10-23 13:01 | PHYS DOC ---
Past History Past Medical History: A-Fib, Arthritis, COPD, Dementia, DVT, High Cholesterol, Hypertension Additional Past Medical Histor: sepsis; cerebrovascular disease Past Surgical History: Other Additional Past Surgical Histo: suprapubic cath Smoking: Non-smoker Alcohol Use: None Drug Use: None Adult General Chief Complaint Chief Complaint: PAIN ON URINATION HPI HPI Patient is a 84-year-old female who presents with report of generalized weakness, lethargy and confusion. Patient is currently being treated for urin mary tract infection and concern is that antibiotics are not adequately treating it. Patient awake and alert upon arrival. Patient denies any chest pain or shortness of breath. She does admit to being weak all over. [] Review of Systems Review of Systems Constitutional: Denies fever or chills [] Respiratory: Denies cough or shortness of breath [] Cardiovascular: No additional information not addressed in HPI [] GI: Denies abdominal pain, nausea, vomiting, bloody stools or diarrhea [] Musculoskeletal: Complains of back pain [] Integument: Denies rash or skin lesions [] Neurologic: Denies headache, focal weakness or sensory changes [] All other systems were reviewed and found to be within normal limits, except as documented in this note. Current Medications Current Medications Current Medications Medications (Trade) Dose Ordered Sig/Romaine Start Time Stop Time Status Last Admin Dose Admin Ceftriaxone Sodium 1 gm/ Sodium Chloride 50 ml @ 100 mls/hr 1X ONCE 10/23/19 12:30 10/23/19 12:59 DC Ceftriaxone Sodium (Rocephin) 1 gm STK-MED ONCE 10/23/19 12:09 10/23/19 12:09 DC Sodium Chloride 50 ml @ As Directed STK-MED ONCE 10/23/19 12:09 10/23/19 12:10 DC Allergies Allergies Allergies Coded Allergies Type Severity Reaction Last Updated Verified Cephalexin Monohydrate Allergy Intermediate tolerated cefdinir, merrem in past 07/14/19 Yes Iodinated Contrast Media Allergy Intermediate 05/16/19 Yes Penicillins Allergy Intermediate tolerated cefdinir, merrem in past 07/14/19 Yes Sulfonylureas Allergy Intermediate 05/16/19 Yes amoxicillin Allergy Intermediate tolerated cefdinir, merrem in past 07/14/19 Yes bacitracin zinc Allergy Intermediate 05/16/19 Yes ciprofloxacin HCl Allergy Intermediate 05/16/19 Yes colistimethate sodium Allergy Intermediate 05/16/19 Yes dexamethasone Allergy Intermediate 05/16/19 Yes doxycycline Allergy Intermediate 05/16/19 Yes gramicidin D Allergy Intermediate 05/16/19 Yes iodine Allergy Intermediate 05/16/19 Yes morphine Allergy Intermediate 05/16/19 Yes moxifloxacin HCl Allergy Intermediate 05/16/19 Yes neomycin sulfate Allergy Intermediate 05/16/19 Yes polymyxin B sulfate Allergy Intermediate 05/16/19 Yes pramoxine HCl Allergy Intermediate 05/16/19 Yes silver sulfadiazine Allergy Intermediate 05/16/19 Yes sulfamethoxazole Allergy Intermediate 05/16/19 Yes trimethoprim Allergy Intermediate 05/16/19 Yes vancomycin Allergy Intermediate 05/16/19 Yes Physical Exam Physical Exam Constitutional: Well developed, well nourished, no acute distress, non-toxic appearance. [] HENT: Normocephalic, atraumatic, bilateral external ears normal, oropharynx moist, no oral exudates, nose normal. [] Eyes: PERRLA, EOMI, conjunctiva normal, no discharge. [] Neck: Normal range of motion, no tenderness, supple, no stridor. [] Cardiovascular: Regular rate and rhythm [] Lungs & Thorax: Bilateral breath sounds clear to auscultation [] Abdomen: Bowel sounds normal, soft, no tenderness. [] Skin: Warm, dry, no erythema, no rash. [] Extremities: No tenderness, no cyanosis, no clubbing, ROM intact, with lower extremity pitting edema. [] Neurologic: Awake and alert, no focal deficits noted. [] Current Patient Data Vital Signs Vital Signs Date Time Temp Pulse Resp B/P (MAP) Pulse Ox O2 Delivery O2 Flow Rate FiO2 10/23/19 11:20 98.1 66 16 100/53 (69) 97 Room Air Lab Results Laboratory Tests Test 10/23/19 10:52 10/23/19 11:05 Urine Collection Type Unknown Urine Color Yellow Urine Clarity Cloudy Urine pH 5.5 Urine Specific [place] 1.020 Urine Protein 30 mg/dl (NEG-TRACE) Urine Glucose (UA) Neg mg/dL (NEG) Urine Ketones (Stick) Neg mg/dL (NEG) Urine Blood Mod (NEG) Urine Nitrite Neg (NEG) Urine Bilirubin Neg (NEG) Urine Urobilinogen Dipstick 0.2 mg/dL (0.2 mg/dL) Urine Leukocyte Esterase Mod (NEG) Urine RBC 6-10 /HPF (0-2) Urine WBC 20-40 /HPF (0-4) Urine Squamous Epithelial Cells Occ /LPF Urine Bacteria Many /HPF (0-FEW) Urine Hyaline Casts Occ /HPF Urine Yeast Present /HPF White Blood Count 7.7 x10^3/uL (4.0-11.0) Red Blood Count 4.17 x10^6/uL (3.50-5.40) Hemoglobin 11.2 g/dL (12.0-15.5) L Hematocrit 35.0 % (36.0-47.0) L Mean Corpuscular Volume 84 fL (79-100) Mean Corpuscular Hemoglobin 27 pg (25-35) Mean Corpuscular Hemoglobin Concent 32 g/dL (31-37) Red Cell Distribution Width 16.0 % (11.5-14.5) H Platelet Count 208 x10^3/uL (140-400) Neutrophils (%) (Auto) 73 % (31-73) Lymphocytes (%) (Auto) 16 % (24-48) L Monocytes (%) (Auto) 6 % (0-9) Eosinophils (%) (Auto) 5 % (0-3) H Basophils (%) (Auto) 0 % (0-3) Neutrophils # (Auto) 5.6 x10^3uL (1.8-7.7) Lymphocytes # (Auto) 1.2 x10^3/uL (1.0-4.8) Monocytes # (Auto) 0.5 x10^3/uL (0.0-1.1) Eosinophils # (Auto) 0.3 x10^3/uL (0.0-0.7) Basophils # (Auto) 0.0 x10^3/uL (0.0-0.2) Sodium Level 140 mmol/L (136-145) Potassium Level 4.3 mmol/L (3.5-5.1) Chloride Level 103 mmol/L (98-107) Carbon Dioxide Level 29 mmol/L (21-32) Anion Gap 8 (6-14) Blood Urea Nitrogen 33 mg/dL (7-20) H Creatinine 1.2 mg/dL (0.6-1.0) H Estimated GFR (Cockcroft-Gault) 43.0 BUN/Creatinine Ratio 28 (6-20) H Glucose Level 108 mg/dL (70-99) H Calcium Level 9.0 mg/dL (8.5-10.1) Magnesium Level 2.1 mg/dL (1.8-2.4) Total Bilirubin 0.2 mg/dL (0.2-1.0) Aspartate Amino Transferase (AST) 12 U/L (15-37) L Alanine Aminotransferase (ALT) 10 U/L (14-59) L Alkaline Phosphatase 103 U/L (46-116) Troponin I Quantitative < 0.017 ng/mL (0-0.055) Total Protein 6.9 g/dL (6.4-8.2) Albumin 2.8 g/dL (3.4-5.0) L Albumin/Globulin Ratio 0.7 (1.0-1.7) L EKG EKG [] Radiology/Procedures Radiology/Procedures [] Course & Med Decision Making Course & Med Decision Making Pertinent Labs and Imaging studies reviewed. (See chart for details) [] Dragon Disclaimer Dragon Disclaimer This electronic medical record was generated, in whole or in part, using a voice recognition dictation system. Departure Departure: Impression: Primary Impression: UTI (urinary tract infection) Additional Impression: AMS (altered mental status) Disposition: ADMITTED INPATIENT Admitting Physician: Darcie Engle Condition: IMPROVED Referrals: DARCIE ENGLE MD (PCP) Problem Qualifiers Primary Impression: UTI (urinary tract infection) Urinary tract infection type: site unspecified Hematuria presence: without hematuria Qualified Codes: N39.0 - Urinary tract infection, site not specified Additional Impression: AMS (altered mental status) Altered mental status type: unspecified Qualified Codes: R41.82 - Altered mental status, unspecified ALFREDA STARK Jr. DO Oct 23, 2019 13:01
[2019-10-23 16:00] VITALS: BP 99/59
[2019-10-23] MEDS ORDERED: GENTAMICIN PER PHARMACY MC PRN (18:00)
[2019-10-23] MEDS ORDERED: GENTAMICIN SULFATE 500 MG in IV NORMAL SALINE 100ML 100 ML IV ONE (19:00)
[2019-10-23] MEDS ORDERED: NORMAL SALINE IV ONE (19:00)
[2019-10-23] MEDS ORDERED: GENTAMICIN SULFATE IV ONE (19:00)
[2019-10-23 20:00] VITALS: BP 113/69
[2019-10-23] MEDS: APIXABAN 2.5 MG TABLET PO SCH (21:41)
[2019-10-23 23:13] VITALS: BP 117/75
[2019-10-24 06:11] VITALS: BP 105/67
[2019-10-24 06:36] LABS: BASO % 0 % (0-3); EOS # 0.3 x10^3/uL (0.0-0.7); EOS % 4 % (0-3); HEMATOCRIT 32.3 % (36.0-47.0); HEMOGLOBIN 10.2 g/dL (12.0-15.5); LYMPH # 1.1 x10^3/uL (1.0-4.8); LYMPH % 16 % (24-48); MEAN CORPUSCULAR HEMOGLOBIN 27 pg (25-35); MEAN CORPUSCULAR HGB CONC 31 g/dL (31-37); MEAN CORPUSCULAR VOLUME 86 fL (79-100); MONO # 0.4 x10^3/uL (0.0-1.1); MONO % 6 % (0-9); NEUT # 5.1 x10^3uL (1.8-7.7); NEUT % 74 % (31-73); PLATELET COUNT 189 x10^3/uL (140-400); RED BLOOD COUNT 3.74 x10^6/uL (3.50-5.40); RED CELL DISTRIBUTION WIDTH 16.3 % (11.5-14.5); WHITE BLOOD COUNT 6.9 x10^3/uL (4.0-11.0)
[2019-10-24 06:42] LABS: CALCIUM 8.3 mg/dL (8.5-10.1); CREATININE 0.9 mg/dL (0.6-1.0); GFR 59.9; POTASSIUM 4.4 mmol/L (3.5-5.1)
[2019-10-24] MEDS ORDERED: BISACODYL 10 MG SUPP.RECT RC PRN (08:45)
[2019-10-24] MEDS ORDERED: NYSTATIN TOPICAL POWDER 15GM BOTTLE. TP PRN (08:45)
[2019-10-24] MEDS ORDERED: HYOSCYAMINE SULFATE 0.125 MG PO PRN (08:45)
[2019-10-24] MEDS ORDERED: ACETAMINOPHEN 325 MG TABLET PO PRN (08:45)
[2019-10-24] MEDS ORDERED: ONDANSETRON HCL PO PRN (08:45)
[2019-10-24] MEDS ORDERED: diphenhydrAMINE HCL 25 MG CAPSULE PO PRN (08:45)
[2019-10-24] MEDS ORDERED: MAG HYDROX PO PRN (08:45)
[2019-10-24] MEDS ORDERED: CALCIUM CARBONATE PO PRN (08:45)
[2019-10-24] MEDS ORDERED: MAGNESIUM HYDROXIDE 2,400 MG/30 ML ORAL.SUSP. PO PRN (08:45)
[2019-10-24] MEDS ORDERED: NITROGLYCERIN SUBLINGUAL 0.4 MG BOTTLE OF 25. SL PRN (08:45)
[2019-10-24] MEDS ORDERED: fentaNYL 75MCG/HR 1 PATCH PATCH TD SCH (09:00)
[2019-10-24] MEDS: METOPROLOL TART IMMED RELEASE 25 MG TABLET PO SCH ×2 (09:00→20:55)
[2019-10-24] MEDS ORDERED: NON FORMULARY ITEM (Amino Acids/Protein Hydrolys (Pro-Stat Liquid) 30 ML) PO SCH (09:00)
[2019-10-24] MEDS ORDERED: MULTIVITAMIN WITH MINERALS PO SCH (09:00)
[2019-10-24] MEDS ORDERED: CALCIUM CARBONATE 500 MG TAB.CHEW PO PRN (09:00)
[2019-10-24] MEDS ORDERED: NON FORMULARY ITEM (Lactobacillus Acidophilus (Probiotic) 1 CAP) PO SCH (09:00)
[2019-10-24] MEDS: APIXABAN 2.5 MG TABLET PO SCH ×2 (09:00→20:55)
[2019-10-24] MEDS: CYANOCOBALAMIN (VITAMIN B-12) 250 MCG TABLET PO SCH (09:00)
[2019-10-24] MEDS ORDERED: MAGNESIUM OXIDE 400 MG PO SCH (09:00)
[2019-10-24] MEDS ORDERED: FAMOTIDINE 40 MG PO SCH (09:00)
[2019-10-24] MEDS: CHOLECALCIFEROL (VITAMIN D3) 1,000 UNIT TABLET PO SCH (09:00)
[2019-10-24] MEDS ORDERED: NON FORMULARY ITEM (Polyethylene Glycol 3350 17 GM) MC SCH (09:00)
[2019-10-24] MEDS: amLODIPine BESYLATE 5 MG TABLET PO SCH (09:00)
[2019-10-24] MEDS: cloNIDine HCL 0.1 MG TABLET PO SCH ×2 (09:00→20:56)
[2019-10-24] MEDS ORDERED: ONDANSETRON ODT 4 MG TAB.RAPDIS PO PRN (09:00)
[2019-10-24] MEDS ORDERED: NITROFURANTOIN MONOHYD/M-CRYST 100 MG CAPSULE. PO SCH (09:00)
[2019-10-24] MEDS ORDERED: TROSPIUM CHLORIDE 20 MG PO SCH (09:00)
[2019-10-24] MEDS ORDERED: SPIRONOLACTONE PO SCH (09:00)
[2019-10-24] MEDS ORDERED: HYOSCYAMINE 0.125 MG TAB.RAPDIS PO PRN (09:00)
[2019-10-24] MEDS ORDERED: LOPERAMIDE 2 MG CAPSULE PO PRN (09:00)
[2019-10-24] MEDS: SODIUM CHLORIDE 0.65% NASAL SPRAY 45ML BOTTLE. NS SCH ×2 (09:00→20:56)
[2019-10-24] MEDS: MULTIVITAMIN with MINERAL TABLET. PO SCH (09:19)
[2019-10-24] MEDS: OXYBUTYNIN CHLORIDE 5 MG TABLET PO SCH ×3 (09:19→20:55)
[2019-10-24] MEDS: SPIRONOLACTONE 25 MG TABLET PO SCH (09:19)
[2019-10-24] MEDS: POLYETHYLENE GLYCOL 3350 17 GM PACKET. PO SCH (09:20)
[2019-10-24] MEDS: MAGNESIUM OXIDE 400 MG TABLET PO SCH (09:20)
[2019-10-24] MEDS: LACTOBACILLUS RHAMNOSUS GG 1 CAPSULE. PO SCH ×2 (09:20→20:55)
[2019-10-24] MEDS: FAMOTIDINE 20 MG TABLET PO SCH (09:20)
[2019-10-24] MEDS: DOCUSATE SODIUM 100 MG CAPSULE PO SCH ×2 (09:20→20:54)
[2019-10-24] MEDS: ACETAMINOPHEN 325 MG TABLET PO SCH ×2 (09:20→20:55)
[2019-10-24 10:35] VITALS: BP 102/64
--- NOTE | 2019-10-24 11:35 | HP ---
ADMIT DATE: 10/24/2019 HISTORY OF PRESENT ILLNESS: The patient is an 84-year-old female from a nursing facility. She came in through the Emergency Room, not feeling very well. She has been feeling rundown, tired. She has a chronic indwelling catheter, which has led obviously to multiple infections, the other contributing factor is these are recurrent, the other factor is if looked at her list of allergies, which probably numbers in the neighborhood of 15-20. It becomes very difficult to find an oral antibiotic that can reduce this infection. In any case, she is also very lethargic. She is not nearly as responsive as she usually is to the situation around her. PAST MEDICAL HISTORY: Is that of obviously cerumen impaction, chronic atrial fibrillation, angina, CHF, she is on chronic Eliquis, hypercholesterolemia, pneumonias, abdominal surgery for hysterectomy, obesity, multiple urinary retentions, indwelling catheter, hemiplegia of the right side secondary to history of stroke, degenerative arthritis of multiple joints, hypothyroidism, schizophrenia, depression, multiple blood disorders of anemia, clotting problems. Tetanus, diphtheria, influenza, pneumococcal all up-to-date. She has also had chronic pressure sores because she lies in bed continually. FAMILY HISTORY: Unremarkable. MEDICATIONS: NUMEROUS INCLUDING BUT NOT LIMITED TO KEFLEX, IODINE, PENICILLIN, SULFUR, AMOXICILLIN, BACITRACIN, CIPRO, DOXYCYCLINE, MOXIFLOXACIN, AVELOX, ALL THE SULFA DRUGS, VANCOMYCIN, COLISTIMETHATE SODIUM, DEXAMETHASONE, GRAMICIDIN, ____, MORPHINE, NEOMYCIN, POLYMYXIN, PRAMOXINE, SULFASALAZINE. SOCIAL HISTORY: No smoking, alcohol or drug use. The patient is a full code. REVIEW OF SYSTEMS: The patient arrived at the present time is extremely lethargic. She is not answering questions very well. I tried checking her. She just does not seem to respond and not able to give much of a history, might also be noted that she has tolerated third generation cephalosporins like meropenem in the past. PHYSICAL EXAMINATION: GENERAL: This is an ill-appearing white female, very lethargic. VITAL SIGNS: Blood pressure 99/59, respiratory rate 18, pulse 70, she is afebrile, oxygen saturation good, but as noted, just basically not responding that much. She does open her eyes, but other than that, she has not say much. HEENT: Other than that her eyes are PERRL to light. Mouth and throat: Poor dentition. NECK: Seems to be appropriate. She does have stiff neck she says, but it is just more her arthritis. She says that it is popping when she moves it. LUNGS: Diminished throughout. CARDIOVASCULAR: Irregularly irregular. ABDOMEN: Soft, nontender. EXTREMITIES: No clubbing, cyanosis, nor edema. The patient has heel boots on, trying to turn her every 2 hours because of his previous history of a bedsores that she has from not only obviously lying in bed, but also her urinary incontinence, leaking around her urostomy tube. IMPRESSION: Change in mental status, possible encephalopathy noted by her change in mental status. This is not the usual the patient and we are familiar with. The patient also has urinary tract infection, recurrent, multiple drug allergies, anemia of chronic disease, hyperglycemia, severe protein malnutrition, chronic kidney disease with renal stasis. PLAN: The patient will be admitted. She is on IV antibiotic, Rocephin and gentamicin, some fluids and see if this does not help revive her, a lactic acid is pending. DARCIE TUCKER MD DR: ZANE/jody JOB#: [id number] / [id number]
[2019-10-24 15:16] VITALS: BP 105/64
[2019-10-24 19:01] VITALS: BP 114/77
[2019-10-24] MEDS ORDERED: GENTAMICIN RANDOM LEVEL. MC ONE (20:00)
[2019-10-24] MEDS: ASCORBIC ACID 500 MG TABLET PO SCH (20:55)
[2019-10-24 22:36] VITALS: BP 115/66
[2019-10-25] MEDS ORDERED: GENTAMICIN SULFATE IV ONE ×2
[2019-10-25] MEDS ORDERED: NORMAL SALINE IV ONE ×2
[2019-10-25] MEDS: LEVOTHYROXINE 75 MCG TABLET PO SCH (05:32)
[2019-10-25] MEDS ORDERED: fentaNYL 75MCG/HR 1 PATCH PATCH TD SCH (09:00)
[2019-10-25] MEDS: DOCUSATE SODIUM 100 MG CAPSULE PO SCH ×2 (09:00→21:00)
[2019-10-25] MEDS: POLYETHYLENE GLYCOL 3350 17 GM PACKET. PO SCH (09:00)
--- NOTE | 2019-10-25 09:06 | RAD ---
CHEST AP ONLY History: Shortness of breath Comparison: September 25, 2019 Findings: Hyperinflation. Patchy bibasilar opacities. No pleural effusion. No pneumothorax. Bilateral glenohumeral DJD. Enlarged cardiac size unchanged. Chronic right-sided rib fractures. Impression: 1. Patchy bibasilar opacities, most likely atelectasis. PA and lateral view of the chest can better assess if clinically indicated. Electronically signed by: Eric Barber DO (10/25/2019 9:02 AM) [id number]
--- NOTE | 2019-10-25 09:10 | PN ---
DATE: SUBJECTIVE: An 84-year-old female brought in with sepsis and change in mental status. She is doing much better this morning, a little bit more alert, more like her usual mentation. She is more responsive. The patient's final cultures are still pending. She is on gentamicin and Rocephin and seems to be making reasonably good progress there. Otherwise, we will continue on IV antibiotic therapy. OBJECTIVE: VITAL SIGNS: Blood pressure 115/66, respiratory rate 20, pulse 74, afebrile. LUNGS: Diminished, but clear. CARDIOVASCULAR: Regular sinus rhythm. ABDOMEN: Soft, nontender. The patient is making good progress overall with the situation as noted. We will go ahead and continue to make further evaluation on her. IMPRESSION: Sepsis, pyelonephritis, change in mental status, probable encephalopathy, moderate protein malnutrition, hyperglycemia, acute on top of chronic renal failure. DARCIE TUCKER MD DR: AZNE/jody JOB#: [id number] / [id number]
[2019-10-25] MEDS: FAMOTIDINE 20 MG TABLET PO SCH (09:11)
[2019-10-25] MEDS: CYANOCOBALAMIN (VITAMIN B-12) 250 MCG TABLET PO SCH (09:11)
[2019-10-25] MEDS: SODIUM CHLORIDE 0.65% NASAL SPRAY 45ML BOTTLE. NS SCH ×2 (09:11→21:27)
[2019-10-25] MEDS: METOPROLOL TART IMMED RELEASE 25 MG TABLET PO SCH ×2 (09:12→21:28)
[2019-10-25] MEDS: ASCORBIC ACID 500 MG TABLET PO SCH ×2 (09:12→21:28)
[2019-10-25] MEDS: MULTIVITAMIN with MINERAL TABLET. PO SCH (09:12)
[2019-10-25] MEDS: LACTOBACILLUS RHAMNOSUS GG 1 CAPSULE. PO SCH ×2 (09:12→21:29)
[2019-10-25] MEDS: CHOLECALCIFEROL (VITAMIN D3) 1,000 UNIT TABLET PO SCH (09:12)
[2019-10-25] MEDS: SPIRONOLACTONE 25 MG TABLET PO SCH (09:13)
[2019-10-25] MEDS: OXYBUTYNIN CHLORIDE 5 MG TABLET PO SCH ×3 (09:13→21:31)
[2019-10-25] MEDS: amLODIPine BESYLATE 5 MG TABLET PO SCH (09:13)
[2019-10-25] MEDS: MAGNESIUM OXIDE 400 MG TABLET PO SCH (09:13)
[2019-10-25] MEDS: APIXABAN 2.5 MG TABLET PO SCH ×2 (09:13→21:28)
[2019-10-25] MEDS: cloNIDine HCL 0.1 MG TABLET PO SCH ×2 (09:17→21:00)
[2019-10-25] MEDS: ACETAMINOPHEN 325 MG TABLET PO SCH ×2 (09:18→21:28)
[2019-10-25 11:31] VITALS: BP 97/60
[2019-10-25 15:34] VITALS: BP 120/54
[2019-10-25 16:14] LABS: GFR 53.1
[2019-10-25 19:30] VITALS: BP 102/66
[2019-10-25 22:56] VITALS: BP 96/60
[2019-10-26] MEDS: LEVOTHYROXINE 75 MCG TABLET PO SCH (05:36)
[2019-10-26 06:10] VITALS: BP 116/68
[2019-10-26] MEDS: FAMOTIDINE 20 MG TABLET PO SCH (08:53)
[2019-10-26] MEDS: ACETAMINOPHEN 325 MG TABLET PO SCH (08:54)
[2019-10-26] MEDS: LACTOBACILLUS RHAMNOSUS GG 1 CAPSULE. PO SCH (08:54)
[2019-10-26] MEDS: METOPROLOL TART IMMED RELEASE 25 MG TABLET PO SCH (08:54)
[2019-10-26] MEDS: SPIRONOLACTONE 25 MG TABLET PO SCH (08:55)
[2019-10-26] MEDS: ASCORBIC ACID 500 MG TABLET PO SCH (08:56)
[2019-10-26] MEDS: OXYBUTYNIN CHLORIDE 5 MG TABLET PO SCH (08:56)
[2019-10-26] MEDS: MAGNESIUM OXIDE 400 MG TABLET PO SCH (08:56)
[2019-10-26] MEDS: amLODIPine BESYLATE 5 MG TABLET PO SCH (08:56)
[2019-10-26] MEDS: MULTIVITAMIN with MINERAL TABLET. PO SCH (08:56)
[2019-10-26] MEDS: APIXABAN 2.5 MG TABLET PO SCH (08:56)
[2019-10-26] MEDS: CYANOCOBALAMIN (VITAMIN B-12) 250 MCG TABLET PO SCH (08:57)
[2019-10-26] MEDS: DOCUSATE SODIUM 100 MG CAPSULE PO SCH (09:00)
[2019-10-26] MEDS: POLYETHYLENE GLYCOL 3350 17 GM PACKET. PO SCH (09:00)
[2019-10-26] MEDS: cloNIDine HCL 0.1 MG TABLET PO SCH (09:00)
[2019-10-26] MEDS: CHOLECALCIFEROL (VITAMIN D3) 1,000 UNIT TABLET PO SCH (09:01)
[2019-10-26] MEDS: SODIUM CHLORIDE 0.65% NASAL SPRAY 45ML BOTTLE. NS SCH (09:03)
[2019-10-26] MEDS ORDERED: ASCO500T3 PO (10:21)
[2019-10-26] MEDS ORDERED: NITR100C62 PO (10:21)
--- NOTE | 2019-10-26 10:25 | DISCH ---
DISCHARGE ORDERS DISCHARGE DATE: Oct 26, 2019 FINAL DIAGNOSIS sepsis/urinary tract infection CONDITION AT DISCHARGE: Stable Code Status: Full SNF STAY <30 DAYS: Yes HOSPICE: No HOSPICE EVALUATE & TREAT: No ADMIT TO LTAC: No POST DISCHARGE ORDERS: ACTIVITY ORDERS: Activity as tolerated WEIGHT BEARING STATUS: No restrictions DIET AFTER DISCHARGE: Regular WOUND/INCISION CARE: Change dressing OTHER ORDERS: Change mcbride catheter twice a month. CHECKS AFTER DISCHARGE: CHECKS AFTER DISCHARGE: Check your Temp as needed TREATMENT/EQUIPMENT ORDERS: ADAPTIVE EQUIPMENT NEEDED: None DISCHARGE MEDICATIONS: Home Meds Reported Medications Spironolactone (ALDACTONE) 50 Mg Tablet, 1 TAB PO DAILY for HIGH BLOOD PRESSURE, % 09/01/19 Lactobacillus Acidophilus (PROBIOTIC) 1 Each Capsule, 1 CAP PO BID for PROBIOTIC, % 0 Refills 09/01/19 Nitrofurantoin Monohyd/M-Cryst (MACROBID 100 MG CAPSULE) 100 Mg Capsule, 1 CAP PO BID for UTI for 14 Days, % 0 Refills 09/01/19 Ascorbic Acid (ASCORBIC ACID) 500 Mg Tablet, 500 MG PO DAILY for supplement, TAB 05/17/19 Trospium Chloride (TROSPIUM CHLORIDE) 20 Mg Tablet, 20 MG PO BID for neuromuscular dysfunction , TAB 05/17/19 Nitroglycerin (NITROGLYCERIN SubLingual) 0.4 Mg Tab.subl, 0.4 MG SL PRN Q5MIN PRN for CHEST PAIN, BOTTLE 05/17/19 Sodium Chloride (NASAL MOISTURIZING) 88 Ml [place], 1 SPR NS BID for Congestion 05/17/19 Multivitamin With Minerals (ONE DAILY PLUS MINERALS) 1 Each Tablet, 1 EACH PO DAILY for supplement, TAB 05/17/19 Hyoscyamine Sulfate (LEVSIN) 0.125 Mg Tablet, 0.125 MG PO PRN Q4HRS PRN for pain/cramps, TAB max 1.5/24hrs 05/17/19 Fentanyl (FENTANYL 75mcg/hr) 1 Each Patch.td72, 1 PATCH TD Q72H for pain, PATCH 05/17/19 Ubidecarenone (COENZYME Q10) 100 Mg Tablet, 100 MG PO DAILY for Supplement, TAB 05/17/19 Clonidine Hcl (CLONIDINE HCL) 0.1 Mg Tablet, 0.1 MG PO BID for HTN, TAB 05/17/19 Diphenhydramine Hcl (BENADRYL) 25 Mg Capsule, 50 MG PO PRN Q6HRS PRN for ITCHING, CAP 05/17/19 Amino Acids/Protein Hydrolys (PRO-STAT LIQUID) 30 Ml Liquid.pkt, 30 ML PO BID for WOUND HEALING 10/22/18 Atorvastatin Calcium (ATORVASTATIN CALCIUM) 20 Mg Tablet, 20 MG PO QHS for FOR CHOLESTEROL 10/22/18 Amlodipine Besylate (AMLODIPINE BESYLATE) 5 Mg Tablet, 1 TAB PO DAILY for HYPERTENSION 10/22/18 Famotidine (FAMOTIDINE) 40 Mg Tablet, 40 MG PO DAILY for GERD 08/17/18 Cranberry Extract (CRANBERRY) 425 Mg Capsule, 850 MG PO BID for UTI Prevention 08/17/18 Levothyroxine Sodium (LEVOTHYROXINE SODIUM) 75 Mcg Tablet, 75 MCG PO DAILY06 for THYROID SUPPLEMENT 08/17/18 Metoprolol Tartrate (METOPROLOL TARTRATE) 25 Mg Tablet, 25 MG PO BID for FOR HYPERTENSION 08/17/18 Apixaban (ELIQUIS) 5 Mg Tablet, 2.5 MG PO BID for AFib 08/17/18 Bisacodyl (BISACODYL) 10 Mg Supp.rect, 10 MG RC PRN DAILY PRN for CONSTIPATION 08/17/18 Acetaminophen (TYLENOL) 325 Mg Tablet, 650 MG PO PRN Q8HRS PRN for PAIN 08/17/18 Ondansetron Hcl (ONDANSETRON HCL) 4 Mg Tablet, 1 TAB PO PRN Q6HRS PRN for NAUSEA/VOMITING 12/17/15 Magnesium Hydroxide (MILK OF MAGNESIA) 400 Mg/5 Ml Oral.susp, 30 ML PO DAILY PRN for CONSTIPATION 12/17/15 Loperamide Hcl (LOPERAMIDE) 2 Mg Capsule, 2 MG PO PRN Q6HRS PRN for DIARRHEA 12/17/15 Calcium Carbonate/Mag Hydrox (ANTACID CHEWABLE TABLET) 1 Each Tab.chew, 1 EACH PO PRN Q6HRS PRN for HEARTBURN / GAS 12/17/15 Nystatin (NYSTATIN) 15 Gm Powder, 1 RASHAD TP PRN Q4HRS PRN for RASH 12/17/15 Cholecalciferol (Vitamin D3) (VITAMIN D) 1,000 Unit Tablet, 1000 UNIT PO DAILY for Supplement 12/29/14 Cyanocobalamin (Vitamin B-12) (VITAMIN B-12) 250 Mcg Tablet, 500 MCG PO DAILY for Supplement 12/29/14 Polyethylene Glycol 3350 (POLYETHYLENE GLYCOL 3350) 2,500 Gm Powder, 17 GM MC DAILY for Constipation 12/29/14 Magnesium Oxide (MAGNESIUM OXIDE) 400 Mg Tablet, 400 MG PO DAILY for Supplement 12/29/14 Docusate Sodium (DOCUSATE SODIUM) 100 Mg Capsule, 200 MG PO BID for Stool Softner 12/29/14 Acetaminophen (TYLENOL) 325 Mg Tablet, 650 MG PO BID for Pain 12/29/14 DARCIE TUCKER MD Oct 26, 2019 10:25
[2019-10-26 11:26] VITALS: BP 98/62
--- NOTE | 2019-10-26 12:08 | DS ---
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 The patient was brought in. She was markedly lethargic. She had been attempted to be treated as an outpatient, but she failed outpatient therapy. She did have a change in mental status, possible encephalopathy secondary to her urinary tract infection that showed 20-40 white blood cells and labs also demonstrated urine culture of greater than 100,000 gram-negative bacteria. The latest just came in with Pseudomonas aeruginosa should be sensitive to gentamicin. We do have the final cultures, but with IV gentamicin and her Rocephin, she made excellent progress. Her mental status came from basically lethargic and unresponsive to her more dynamic individual baseline for her. She made good progress. We will continue on IM gentamicin since she is going to a nursing facility and she can take the gentamicin peak and trough levels as well as kidney functions were ordered to be monitored carefully on her as she needs those to be monitored carefully as an outpatient. Otherwise, the patient made good progress. 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 Continue to monitor for any other urinary symptoms, may put her on suppressive therapy after she gets done with the gentamicin and she will be on a heart healthy diet, decreased activity, obviously she is pretty much bedridden, but encouraged her to receive PT, OT. DARCIE TUCKER MD DR: [email or web address]/jody JOB#: [id number] / [id number]
[2019-10-26] MEDS ORDERED: NORMAL SALINE IV SCH (21:00)
[2019-10-26] MEDS ORDERED: GENTAMICIN SULFATE IV SCH (21:00)
== END 2019-10-26 12:35 | DRG 871 ==
LOC: ER 10:49 → 1 SOUTH 12:57
PROVIDERS: ADMIT Family Medicine; ATTEND Family Medicine
DX: A41.9 Sepsis, unspecified organism (principal); E43 Unspecified severe protein-calorie malnutrition; G93.41 Metabolic encephalopathy; I48.20 Chronic atrial fibrillation, unspecified; I13.0 Hypertensive heart and chronic kidney disease with heart failure and stage 1 through stage 4 chronic kidney disease, or unspecified chronic kidney disease; G81.91 Hemiplegia, unspecified affecting right dominant side; N12 Tubulo-interstitial nephritis, not specified as acute or chronic; E78.00 Pure hypercholesterolemia, unspecified; I50.9 Heart failure, unspecified; D63.8 Anemia in other chronic diseases classified elsewhere; N18.9 Chronic kidney disease, unspecified; B96.5 Pseudomonas (aeruginosa) (mallei) (pseudomallei) as the cause of diseases classified elsewhere; E03.9 Hypothyroidism, unspecified; F03.90 Unspecified dementia, unspecified severity, without behavioral disturbance, psychotic disturbance, mood disturbance, and anxiety; F20.9 Schizophrenia, unspecified; J44.9 Chronic obstructive pulmonary disease, unspecified; R32 Unspecified urinary incontinence; Z88.1 Allergy status to other antibiotic agents; Z88.0 Allergy status to penicillin; Z88.2 Allergy status to sulfonamides; Z88.8 Allergy status to other drugs, medicaments and biological substances; Z90.710 Acquired absence of both cervix and uterus; Z88.9 Allergy status to unspecified drugs, medicaments and biological substances; Z79.01 Long term (current) use of anticoagulants; Z79.899 Other long term (current) drug therapy; Z86.73 Personal history of transient ischemic attack (TIA), and cerebral infarction without residual deficits
CPT/HCPCS: 36415; 71045; 80048; 80053; 80170; 81001; 82565; 82947; 83605; 83735; 84484; 85025; 87086; J0696; J1580; Q0162; J7030

== ENCOUNTER 2020-01-22 23:10 | Emergency (ER) | payer OTHER ==
[~2020-01-22] VITALS: Ht 167.6 cm; Wt 86.0 kg
[2020-01-22] MEDS ORDERED: IV NORMAL SALINE 1,000ML 1,000 ML IV SCH (23:30)
[2020-01-22 23:48] LABS: BASO % 0 % (0-3); EOS # 0.1 x10^3/uL (0.0-0.7); EOS % 1 % (0-3); HEMATOCRIT 32.7 % (36.0-47.0); HEMOGLOBIN 10.5 g/dL (12.0-15.5); LYMPH # 0.9 x10^3/uL (1.0-4.8); LYMPH % 8 % (24-48); MEAN CORPUSCULAR HEMOGLOBIN 28 pg (25-35); MEAN CORPUSCULAR HGB CONC 32 g/dL (31-37); MEAN CORPUSCULAR VOLUME 87 fL (79-100); MONO # 0.5 x10^3/uL (0.0-1.1); MONO % 5 % (0-9); NEUT # 9.8 x10^3uL (1.8-7.7); NEUT % 87 % (31-73); PLATELET COUNT 224 x10^3/uL (140-400); RED BLOOD COUNT 3.76 x10^6/uL (3.50-5.40); RED CELL DISTRIBUTION WIDTH 15.8 % (11.5-14.5); WHITE BLOOD COUNT 11.4 x10^3/uL (4.0-11.0)
[2020-01-22 23:52] LABS: GFR 53.1
[2020-01-22 23:54] LABS: BACTERIA,URINE MOD /HPF (0-FEW); BILIRUBIN,URINE NEG (NEG); CLARITY,URINE HAZY; COLOR,URINE YELLOW; GLUCOSE,URINE NEG (NEG); NITRITE,URINE POS (NEG); SQUAMOUS EPITHELIAL CELL,UR OCC /LPF; UROBILINOGEN,URINE 0.2 mg/dL (0.2 mg/dL); WBC,URINE >40 /HPF (0-4)
--- NOTE | 2020-01-22 23:54 | RAD ---
EXAM: CHEST 1 VIEW History: Fever COMPARISON: 10/25/2019 TECHNIQUE: Single portable radiograph of the chest FINDINGS: Moderate cardiomegaly. Mild bibasilar lung airspace opacities. The costophrenic sulci are clear and well demarcated. Old right rib fractures. IMPRESSION: Mild bibasilar lung airspace opacities likely atelectasis or infiltrates. Electronically signed by: Placido Duff MD (01/22/2020 11:51 PM) [id number]
[2020-01-22 23:55] LABS: YEAST,URINE PRESENT /HPF
[2020-01-22 23:56] LABS: POTASSIUM 5.1 mmol/L (3.5-5.1)
[2020-01-23] MEDS ORDERED: ONDANSETRON PF 4 MG/2 ML VIAL. IVP ONE (00:30)
[2020-01-23] MEDS ORDERED: cefTRIAXone SODIUM 1 GM VIAL ONE (00:43)
[2020-01-23] MEDS ORDERED: IV NORMAL SALINE 250ML 250 ML ONE (00:43)
[2020-01-23] MEDS ORDERED: IV NORMAL SALINE 50ML 50 ML ONE (00:43)
[2020-01-23] MEDS ORDERED: AZITHROMYCIN 500 MG VIAL. IV ONE (00:43)
[2020-01-23] MEDS ORDERED: AZITHROMYCIN 500 MG in IV NORMAL SALINE 250ML 250 ML IV ONE (01:00)
[2020-01-23 01:45] LABS: INFLUENZA A PATIENT NEGATIVE (NEGATIVE); INFLUENZA B PATIENT NEGATIVE (NEGATIVE)
[2020-01-23] MEDS ORDERED: CEFD300C PO (02:06)
--- NOTE | 2020-01-23 02:06 | PHYS DOC ---
Past History Past Medical History: A-Fib, Arthritis, COPD, Dementia, DVT, High Cholesterol, Hypertension Additional Past Medical Histor: sepsis; cerebrovascular disease Past Surgical History: Other Additional Past Surgical Histo: suprapubic cath Smoking: Non-smoker Alcohol Use: None Drug Use: None General Adult EDM: Chief Complaint: FEVER HPI: HPI: Patient is a 84-year-old female who presents with report of mental status change and fever. According to EMS, patient's physician wanted patient to be transported due to how high the fever was. Fever had been 102.7 at the [facility] but patient is afebrile here. Additional history is limited as patient is not answering questions. [] Review of Systems: Review of Systems: Constitutional: Positive fever and chills Respiratory: Positive reported shortness of breath Cardiovascular: No reported chest pain or edema GI: Positive reported nausea and vomiting Neurologic: Positive mental status changes Unable to fully assess review of systems as patient is not answering questions Heart Score: Risk Factors: Risk Factors: DM, Current or recent (<one month) smoker, HTN, HLP, family history of CAD, obesity. Risk Scores: Score 0 - 3: 2.5% MACE over next 6 weeks - Discharge Home Score 4 - 6: 20.3% MACE over next 6 weeks - Admit for Clinical Observation Score 7 - 10: 72.7% MACE over next 6 weeks - Early Invasive Strategies Current Medications: Current Meds: Current Medications Medications (Trade) Dose Ordered Sig/Romaine Start Time Stop Time Status Last Admin Dose Admin Azithromycin (Zithromax) 500 mg STK-MED ONCE 01/23/20 00:43 01/23/20 00:44 DC Azithromycin 500 mg/Sodium Chloride 250 ml @ 250 mls/hr 1X ONCE 01/23/20 01:00 01/23/20 01:59 01/23/20 00:51 250 MLS/HR Ceftriaxone Sodium 1 gm/ Sodium Chloride 50 ml @ 100 mls/hr 1X ONCE 01/23/20 01:00 01/23/20 01:30 DC 01/23/20 00:51 100 MLS/HR Ceftriaxone Sodium (Rocephin) 1 gm STK-MED ONCE 01/23/20 00:43 01/23/20 00:44 DC Ondansetron HCl (Zofran) 4 mg 1X ONCE 01/23/20 00:30 01/23/20 00:31 DC 01/23/20 00:50 4 MG Sodium Chloride 50 ml @ As Directed STK-MED ONCE 01/23/20 00:43 01/23/20 00:44 DC Allergies: Allergies: Allergies Coded Allergies Type Severity Reaction Last Updated Verified Cephalexin Monohydrate Allergy Intermediate tolerated cefdinir, merrem in past 07/14/19 Yes Iodinated Contrast Media Allergy Intermediate 05/16/19 Yes Penicillins Allergy Intermediate tolerated cefdinir, merrem in past 07/14/19 Yes Sulfonylureas Allergy Intermediate 05/16/19 Yes amoxicillin Allergy Intermediate tolerated cefdinir, merrem in past 07/14/19 Y es bacitracin zinc Allergy Intermediate 05/16/19 Yes ciprofloxacin HCl Allergy Intermediate 05/16/19 Yes colistimethate sodium Allergy Intermediate 05/16/19 Yes dexamethasone Allergy Intermediate 05/16/19 Yes doxycycline Allergy Intermediate 05/16/19 Yes gramicidin D Allergy Intermediate 05/16/19 Yes iodine Allergy Intermediate 05/16/19 Yes morphine Allergy Intermediate 05/16/19 Yes moxifloxacin HCl Allergy Intermediate 05/16/19 Yes neomycin sulfate Allergy Intermediate 05/16/19 Yes polymyxin B sulfate Allergy Intermediate 05/16/19 Yes pramoxine HCl Allergy Intermediate 05/16/19 Yes silver sulfadiazine Allergy Intermediate 05/16/19 Yes sulfamethoxazole Allergy Intermediate 05/16/19 Yes trimethoprim Allergy Intermediate 05/16/19 Yes vancomycin Allergy Intermediate 05/16/19 Yes Physical Exam: PE: Constitutional: Well developed, well nourished, no acute distress, non-toxic ap pearance. [] HENT: Normocephalic, atraumatic, bilateral external ears normal, oropharynx moist, no oral exudates, nose normal. [] Eyes: PERRLA, EOMI, conjunctiva normal, no discharge. [] Neck: Normal range of motion, no tenderness, supple, no stridor. [] Cardiovascular: Regular rate and rhythm [] Lungs & Thorax: Bilateral breath sounds clear to auscultation [] Abdomen: Bowel sounds normal, soft, no tenderness. [] Skin: Warm, dry, no erythema, no rash. [] Extremities: No clubbing or cyanosis. Positive edema. [] Neurologic: Awake and alert, no obvious focal deficits noted. [] Current Patient Data: Labs: Laboratory Tests Test 01/22/20 23:25 01/22/20 23:30 01/23/20 00:38 White Blood Count 11.4 x10^3/uL (4.0-11.0) H Red Blood Count 3.76 x10^6/uL (3.50-5.40) Hemoglobin 10.5 g/dL (12.0-15.5) L Hematocrit 32.7 % (36.0-47.0) L Mean Corpuscular Volume 87 fL (79-100) Mean Corpuscular Hemoglobin 28 pg (25-35) Mean Corpuscular Hemoglobin Concent 32 g/dL (31-37) Red Cell Distribution Width 15.8 % (11.5-14.5) H Platelet Count 224 x10^3/uL (140-400) Neutrophils (%) (Auto) 87 % (31-73) H Lymphocytes (%) (Auto) 8 % (24-48) L Monocytes (%) (Auto) 5 % (0-9) Eosinophils (%) (Auto) 1 % (0-3) Basophils (%) (Auto) 0 % (0-3) Neutrophils # (Auto) 9.8 x10^3uL (1.8-7.7) H Lymphocytes # (Auto) 0.9 x10^3/uL (1.0-4.8) L Monocytes # (Auto) 0.5 x10^3/uL (0.0-1.1) Eosinophils # (Auto) 0.1 x10^3/uL (0.0-0.7) Basophils # (Auto) 0.0 x10^3/uL (0.0-0.2) Sodium Level 143 mmol/L (136-145) Potassium Level 5.1 mmol/L (3.5-5.1) Chloride Level 105 mmol/L (98-107) Carbon Dioxide Level 32 mmol/L (21-32) Anion Gap 6 (6-14) Blood Urea Nitrogen 49 mg/dL (7-20) H Creatinine 1.0 mg/dL (0.6-1.0) Estimated GFR (Cockcroft-Gault) 53.1 Glucose Level 144 mg/dL (70-99) H Lactic Acid Level 1.1 mmol/L (0.4-2.0) Calcium Level 9.0 mg/dL (8.5-10.1) Urine Collection Type Unknown Urine Color Yellow Urine Clarity Hazy Urine pH 5.5 Urine Specific [place] 1.015 Urine Protein Trace (NEG-TRACE) Urine Glucose (UA) Neg mg/dL (NEG) Urine Ketones (Stick) Neg mg/dL (NEG) Urine Blood Mod (NEG) Urine Nitrite Pos (NEG) Urine Bilirubin Neg (NEG) Urine Urobilinogen Dipstick 0.2 mg/dL (0.2 mg/dL) Urine Leukocyte Esterase Large (NEG) Urine RBC 11-20 /HPF (0-2) Urine WBC >40 /HPF (0-4) Urine Squamous Epithelial Cells Occ /LPF Urine Bacteria Mod /HPF (0-FEW) Urine Yeast Present /HPF Influenza Type A (Rapid) Negative (NEGATIVE) Influenza Type B (Rapid) Negative (NEGATIVE) Group A Streptococcus Rapid Negative (NEGATIVE) Vital Signs: Vital Signs Date Time Temp Pulse Resp B/P (MAP) Pulse Ox O2 Delivery O2 Flow Rate FiO2 01/22/20 23:10 102.0 110 18 123/82 (96) 96 Room Air 4.0 EKG: EKG: [] Radiology/Procedures: Radiology/Procedures: [] Course & Med Decision Making: Course & Med Decision Making Pertinent Labs and Imaging studies reviewed. (See chart for details) [] Dragon Disclaimer: Dragon Disclaimer: This electronic medical record was generated, in whole or in part, using a voice recognition dictation system. Departure Departure: Impression: Primary Impression: UTI (urinary tract infection) Qualified Codes: T83.511A - Infection and inflammatory reaction due to indwelling urethral catheter, initial encounter; N39.0 - Urinary tract infection, site not specified Disposition: 01 HOME/RESIDENCE PRIOR TO ADM Condition: STABLE Referrals: DARCIE TUCKER MD (PCP) Patient Instructions: Urinary Tract Infection Scripts Cefdinir (CEFDINIR) 300 Mg Capsule 1 CAP PO BID for infection, #20 CAP Prov: ALFREDA STARK Jr. DO 01/23/20 Justification of Admission: Justification of Admission: Justification of Admission Dx: Comment: (Not applicable) ALFREDA STARK Jr. DO Jan 23, 2020 02:06
[2020-01-23 02:45] VITALS: BP 135/72
== END 2020-01-23 02:45 | disposition home or self-care (01) ==
LOC: ER 23:10
DX: N39.0 Urinary tract infection, site not specified (principal); Z20.828 Contact with and (suspected) exposure to other viral communicable diseases; R41.82 Altered mental status, unspecified; I48.91 Unspecified atrial fibrillation; M19.90 Unspecified osteoarthritis, unspecified site; J44.9 Chronic obstructive pulmonary disease, unspecified; E78.00 Pure hypercholesterolemia, unspecified; I10 Essential (primary) hypertension; Z86.718 Personal history of other venous thrombosis and embolism; Z88.1 Allergy status to other antibiotic agents; Z88.0 Allergy status to penicillin; Z88.8 Allergy status to other drugs, medicaments and biological substances; Z91.041 Radiographic dye allergy status; Z88.5 Allergy status to narcotic agent
CPT/HCPCS: 36415; 71045; 80048; 81001; 83605; 85025; 87040; 87070; 87086; 87804; 87880; 96361; 96365; 96368; 96375; 99285; J0456; J0696; J2405; J7030; J7050; U0003